=== PATIENT | male | born 1950 | race Caucasian/White ===

== ENCOUNTER 2023-12-03 13:13 | Emergency (ER) | payer OTHER ==
--- OUTSIDE RECORDS SUMMARY | 2023-12-03 13:18 | XMS REPORT | Continuity of Care Document ---
Author Name Unknown Address [address] [facility] [address] [place] [address] [facility] thconnect Address [address] [facility] [address] [place] [address] Care Team Providers Care Bi Application Developer Name Role Phone Artur Marisela Carballo Attending Clinician Unavailable Albert Lazar Attending Clinician Unavailabl George Underwood Attending Clinician Unavailable Doctor Unassigned, Madelia Attending Clinician U Bob Anna Attending Clinician George Connor Admitting Clinician Unavailable Payers Payer Name Policy Type Policy Number Effective Date Expirati on Date Source Problems Condition Name Condition Details Condition Category Status Onset Date Resolution Date Last Treatment Date Treating Clinician Comments Source Dermatitis Dermatitis Problem Active C ommon [facility] Encounter for general adult medical examinatio n with abnormal findings Encounter for general adult medical examinatio n with abnormal findings Problem Active Common [facility] Hyperchole sterolemia Hyperchole sterolemia Problem Active [facility] Other chronic pain Other chronic pain Problem Active [facility] Lumbago with sciatica, right side Lumbago with sciatica, right side Problem Active [facility] Essential hypertensi on Essential hypertensi on Problem Active [facility] Lumbago with sciatica, left side Lumbago with sciatica, left side Problem Active [facility] Allergies, Adverse Reactions, Alerts Allergy Name Allergy Type Status Severity Reaction(s) Onset Date Inactive Date Treating Clinician Comments Source No Known Allergie s DA Active U 03-25 00:00: 00 [facility] No Known Allergie s DA Active U 03-25 00:00: 00 [facility] Social History Social Habit Start Date Stop Date Quantity Comments Source Sex Assigned At [facility] Smoking Status Start Date Stop Date Source Unknown if ever smoked [facility] Medications Ordered Medication Name Filled Medication Name Start Date Stop Date Current Medication? Ordering Clinician Indication Dosage Frequency Signature (SIG) Comments Components Source Triamcinolo ne Acetonide Triamcinolo ne Acetonide 02-25 00:00: 00 Yes Marisela Siddiqui 1 applicatio n to affected area [facility] HydrOXYzine HCl HydrOXYzine HCl 02-25 00:00: 00 Yes Marisela Siddiqui 1 tablet as needed [facility] Amlodipine Besylate Amlodipine Besylate Yes Marisela Siddiqui 1 tablet [facility] Furosemide Furosemide Yes Marisela Siddiqui 1 tablet [facility] Carvedilol Carvedilol Yes Marisela Siddiqui 2 tablet [facility] Meloxicam Meloxicam Yes Marisela Siddiqui 1 tablet [facility] Pravastatin Sodium Pravastatin Sodium Yes Marisela Siddiqui 11/2 tablet [facility] Valsartan Valsartan Yes Marisela Siddiqui 1 tablet [facility] Procedures Procedure Date / Time Performed Performing Clinicia n Source [id number] 2019-04-01 00:00:00 JOSE LUIS [facility] [id number] 2019-04-01 00:00:00 JOSE LUIS [facility] [id number] 2019-04-01 00:00:00 JOSE LUIS [facility] EXTERNAL PROVIDER - ADC REFERRAL 2019-02-28 06:01:00 Doctor Unassigned, Madelia [facility] XR HIPS 2 VW RIGHT 2018-10-28 19:48:57 [facility]W RIGHT 2018-10-28 19:48:57 Bob Taylor [facility] CONSENT/REFUSAL FOR DIAGNOSIS AND TREATMENT 2018-10-28 19:19:33 Doctor Unassigned, Madelia [facility] ASSIGNMENT OF BENEFITS 2018-10-28 19:19:23 Docto r Unassigned, Madelia [facility] Encounters Start Date/Time End Date/Time Encounter Type Admission Type Attending Clinicians Care Facility Care Department Encounter ID Source 2021-03-06 11:01:33 Outpatient Siddiqui Marisela [facility] [id number] [facility] 2019-04-01 15:15:00 Inpatient Albert Lazar [facility] [id number] [facility] 2019-03-26 12:00:00 2019-03-26 12:00:00 Outpatient George Connor [facility]G [id number] [facility] 2019-02-28 00:00:00 2019-02-28 00:00:00 Orders Only Doctor Unassigned, Madelia [facility] 1.2.840.114 350.1.13.10 4.2.7.2.686 [id number] 2019-02-28 00:00:00 2019-02-28 00:00:00 Orders Only Doctor Unassigned, Madelia [facility] 1.2.840.114 350.1.13.10 4.2.7.2.686 [id number] [facility] 2019-02-25 16:20:00 2019-02-25 16:20:00 Outpatient Braznithya [facility] Medicine B[facility]ithyat [facility] Medicine [id number] [facility] 2018-10-28 14:30:00 2018-10-28 23:59:00 Hospital Encounter Bob Taylor [facility] 1.2.840.114 350.1.13.10 4.2.7.2.686 [id number] 2018-10-28 14:30:00 2018-10-28 23:59:00 [facility] 1.2.840.114 350.1.13.10 4.2.7.2.686 [id number] [facility] 2018-10-28 14:15:00 2018-10-28 14:29:00 Hospital Encounter Taylor [facility] 1.2.840.114 350.1.13.10 4.2.7.2.686 [id number] 2018-10-28 14:15:00 2018-10-28 14:29:00 Hospital Encounter [facility] 1.2.840.114 350.1.13.10 4.2.7.2.686 [id number] [facility] 2018-10-28 00:00:00 2018-10-28 00:00:00 Orders Only Doctor Unassigned, Madelia [facility] 1.2.840.114 350.1.13.10 4.2.7.2.686 [id number] 2018-10-28 00:00:00 2018-10-28 00:00:00 Orders Only Doctor Unassigned, Madelia [facility] 1.2.840.114 350.1.13.10 4.2.7.2.686 [id number] [facility] Results Test Description Test Time Test Comments Results Resul t Comments Source - XR CHEST 1V 2019-04-06 07:41:00 Patient Name: LEATHA CORONEL Unit No: [id number] EXAMS: CPT CODE: [id number] XR CHEST 1V [id number] EXAM: - XR CHEST 1V Location code:B2 HISTORY: Postop COMPARISON: 04/05/2019 FINDINGS: Frontal view of the chest is submitted. Previously noted right subclavian CVC is no longer present. Stable enlarged cardiomediastinal silhouette with evidence of median sternotomy wires. Mild diffuse pulmonary congestive changes are noted bilaterally. The lungs are clear of focal consolidation. No effusion or evidence of pneumothorax.. No acute osseous pathology. IMPRESSION Stable cardiomegaly and mild diffuse pulmonary vascular congestive changes. No large effusion or new focal consolidation. at 0741 Reported and signed by: Yesy Lovell MD CC: George Connor MD; Zaid Nazario; Madison Jackson FURNITURE SHAMPOOER Technologist: Viki Crockett RT(R) Transcrpt Date/Tm/Trnsp: 04/06/2019 (07) [email or web address] Orig Print D/T: S: 04/06/2019 (0744) [facility] NAME: LEATHA CORONEL [address] PHYS: MERLINE.[place]aud[place] [address] : 1950 AGE: 68 SEX: M LOC: [id number] A PHONE #: [phone] EXAM DATE: 04/06/2019 STATUS: ADM IN FAX #: [phone] RADIOLOGY NO: PAGE 1 Signed Report BASIC METABOLIC [id number] 06:37:00* Test Item Value Reference Range Interpretation Comme nts SODIUM (test code = NA) 132 MMOL/L 137-145 L POTASSIUM (test code = K) MMOL/L 3.5-5.1 CHLORIDE (test code = CL) 101 MMOL/L 98-107 N CARBON DIOXIDE (test code = CO2) 21 MMOL/L 22-30 L GLUCOSE (test code = GLU) 102 MG/DL 74-106 N BLOOD UREA NITROGEN (test code = BUN) 14 MG/DL 9-20 N GLOMERULAR FILTRATION RATE (test code = GFR) > 60 Reporting units: ml/min/1.73 m2 (Modified MDRD Formula)Reference Range: > or = 60 ml/min/1.73 m2 CREATININE (test code = CREAT) 0.70 MG/DL 0.66-1.25 N CALCIUM (test code = CA) 8.7 MG/DL 8.4-10.2 N BASIC METABOLIC [id number] 06:36:00* Test Item Value Reference Range Interpretation Comme nts SODIUM (test code = NA) 132 MMOL/L 137-145 L POTASSIUM (test code = K) MMOL/L 3.5-5.1 CHLORIDE (test code = CL) 101 MMOL/L 98-107 N CARBON DIOXIDE (test code = CO2) MMOL/L 22-30 GLUCOSE (test code = GLU) MG/DL 74-106 BLOOD UREA NITROGEN (test code = BUN) MG/DL 9-20 GLOMERULAR FILTRATION RATE (test code = GFR) > 60 Reporting units: ml/min/1.73 m2 (Modified MDRD Formula)Reference Range: > or = 60 ml/min/1.73 m2 CREATININE (test code = CREAT) 0.70 MG/DL 0.66-1.25 N CALCIUM (test code = CA) MG/DL 8.7-9.7 BASIC METABOLIC [id number] 06:34:00* Test Item Value Reference Range Interpretation Comme nts SODIUM (test code = NA) 132 MMOL/L 137-145 L POTASSIUM (test code = K) MMOL/L 3.5-5.1 CHLORIDE (test code = CL) 101 MMOL/L 98-107 N CARBON DIOXIDE (test code = CO2) MMOL/L 22-30 GLUCOSE (test code = GLU) MG/DL 74-106 BLOOD UREA NITROGEN (test co de = BUN) MG/DL 9-20 GLOMERULAR FILTRATION RATE ( test code = GFR) CREATININE (test code = CREAT) MG/DL 0.66-1.25 CALCIUM (test code = CA) MG/DL 8.7-9.7 BASIC METABOLIC [id number] 06:33:00* Test Item Value Reference Range Interpretation Comme nts SODIUM (test code = NA) MMOL/L 137-145 POTASSIUM (test code = K) MMOL/L 3.5-5.1 CHLORIDE (test code = CL) 101 MMOL/L 98-107 N CARBON DIOXIDE (test code = CO2) MMOL/L 22-30 GLUCOSE (test code = GLU) MG/DL 74-106 BLOOD UREA NITROGEN (test co de = BUN) MG/DL 9-20 GLOMERULAR FILTRATION RATE ( test code = GFR) CREATININE (test code = CREAT) MG/DL 0.66-1.25 CALCIUM (test code = CA) MG/DL 8.7-9.7 CBC W/AUTO [id number] 06:15:00* Test Item Value Reference Range Interpretation Comme nts WHITE BLOOD CELL (test code = WBC) 6.6 K/MM3 3.8-9.8 N RED BLOOD CELL (test code = RBC) 3.34 M/MM3 3.95-5.67 L HEMOGLOBIN (test code = HGB) 10.5 G/DL 12.4-16.7 L HEMATOCRIT (test code = HCT) 30.5 % 35.9-49.5 L MEAN CELL VOLUME (test code = MCV) 91 fL 81.7-96.1 N MEAN CELL HGB (test code = MCH) 31.4 pg 27.6-33.2 N MEAN CELL HGB CONCETRATION (test code = MCHC) 34.4 % 32.9-35.5 N RED CELL DISTRIBUTION WIDTH (test code = RDW) 13.1 % 12.1-15.2 N PLATELET COUNT (test code = PLT) 200 K/MM3 129-368 N MEAN PLATELET VOLUME (test c ode = MPV) 9.1 fl 7.4-10.4 N NEUTROPHIL % (test code = NT%) 58.6 % 43-75 N IMMATURE GRANULOCYTE % (test code = IG%) 3.3 % 0.0-2.0 H LYMPHOCYTE % (test code = LY%) 16.5 % 14-44 N MONOCYTE % (test code = MO%) 17.6 % 4-13 H EOSINOPHIL % (test code = EO%) 3.2 % 0-6 N BASOPHIL % (test code = BA%) 0.8 % 0-2 N NUCLEATED RBC % (test code = NRBC%) 0.0 % 0-1.0 N NEUTROPHIL # (test code = NT#) 3.87 K/mm3 2.0-7.6 N IMMATURE GRANULOCYTE # (test code = IG#) 0.22 x10 3/uL 0-0.03 H LYMPHOCYTE # (test code = LY#) 1.09 K/mm3 1.0-3.8 N MONOCYTE # (test code = MO#) 1.16 K/mm3 0.1-0.8 H EOSINOPHIL # (test code = EO#) 0.21 K/mm3 0.0-0.2 H BASOPHIL # (test code = BA#) 0.05 K/mm3 0.0-0.2 N NUCLEATED RBC # (test code = NRBC#) 0.00 K/mm3 0.0-0.1 N - XR CHEST [id number] 07:32:00Patient Name: LEATHA CORONEL Unit No: [id number] EXAMS: CPT CODE: [id number] XR CHEST 1V [id number]: - XR CHEST 1V Location code:B2 HISTORY: Status post CABG COMPARISON: 04/04/2019 FINDINGS: Fron pop view of the chest is submitted. Stable right subclavian CVC. Stable cardiomediastinal silhouette with evidence of prior median sternotomy. Only minor residual right basilar opacity, likely atelectasis. No focal consolidation, effusion or evidence of pneumothorax. No acute osseous pathology. IMPRESSION Status post CABG with only minimal residual right basilar atelectasis. No focal consolidation. at 0732 Reported and signed by: Yesy Lovell MD CC: George Connor MD Technologist: Viki Crockett RT(R) Transcrpt Date/Tm/Trnsp: 04/05/2019 (0732) [email or web address] Orig Print D/T: S: 04/05/2019 (0735) [facility] NAME: LEATHA CORONEL [id number] PHYS: [place] [address] : 1950 AGE: 68 SEX: M LOC: Z.358 A PHONE #: [phone] EXAM DATE: 04/05/2019 STATUS: ADM IN FAX #: [phone] RADIOLOGY NO: PAGE 1 Signed ReportBASIC METABOLIC [id number] 05:38:00* Test Item Value Reference Range Interpretation Comme nts SODIUM (test code = NA) 132 MMOL/L 137-145 L POTASSIUM (test code = K) 3.7 MMOL/L 3.5-5.1 N CHLORIDE (test code = CL) 101 MMOL/L 98-107 N CARBON DIOXIDE (test code = CO2) 23 MMOL/L 22-30 N GLUCOSE (test code = GLU) 104 MG/DL 74-106 N BLOOD UREA NITROGEN (test code = BUN) 15 MG/DL 9-20 N GLOMERULAR FILTRATION RATE (test code = GFR) > 60 Reporting units: ml/min/1.73 m2 (Modified MDRD Formula)Reference Range: > or = 60 ml/min/1.73 m2 CREATININE (test code = CREAT) 0.80 MG/DL 0.66-1.25 N CALCIUM (test code = CA) 8.8 MG/DL 8.4-10.2 N [id number] 05:38:00* Test Item Value Reference Range Interpretation Comme nts MAGNESIUM (test code = MAG) 1.9 MG/DL 1.6-2.3 N BASIC METABOLIC [id number] 05:37:00* Test Item Value Reference Range Interpretation Comme nts SODIUM (test code = NA) 132 MMOL/L 137-145 L POTASSIUM (test code = K) 3.7 MMOL/L 3.5-5.1 N CHLORIDE (test code = CL) 101 MMOL/L 98-107 N CARBON DIOXIDE (test code = CO2) 23 MMOL/L 22-30 N GLUCOSE (test code = GLU) MG/DL 74-106 BLOOD UREA NITROGEN (test code = BUN) 15 MG/DL 9-20 N GLOMERULAR FILTRATION RATE (test code = GFR) > 60 Reporting units: ml/min/1.73 m2 (Modified MDRD Formula)Reference Range: > or = 60 ml/min/1.73 m2 CREATININE (test code = CREAT) 0.80 MG/DL 0.66-1.25 N CALCIUM (test code = CA) MG/DL 8.7-9.7 [id number] 05:37:00* Test Item Value Reference Range Interpretation Comme nts MAGNESIUM (test code = MAG) MG/DL 1.6-2.3 BASIC METABOLIC [id number] 05:34:00* Test Item Value Reference Range Interpretation Comme nts SODIUM (test code = NA) 132 MMOL/L 137-145 L POTASSIUM (test code = K) 3.7 MMOL/L 3.5-5.1 N CHLORIDE (test code = CL) 101 MMOL/L 98-107 N CARBON DIOXIDE (test code = CO2) MMOL/L 22-30 GLUCOSE (test code = GLU) MG/DL 74-106 BLOOD UREA NITROGEN (test co de = BUN) MG/DL 9-20 GLOMERULAR FILTRATION RATE ( test code = GFR) CREATININE (test code = CREAT) MG/DL 0.66-1.25 CALCIUM (test code = CA) MG/DL 8.7-9.7 [id number] 05:34:00* Test Item Value Reference Range Interpretation Comme nts MAGNESIUM (test code = MAG) MG/DL 1.6-2.3 CBC W/AUTO [id number] 05:20:00* Test Item Value Reference Range Interpretation Comme nts WHITE BLOOD CELL (test code = WBC) 6.9 K/MM3 3.8-9.8 N RED BLOOD CELL (test code = RBC) 3.29 M/MM3 3.95-5.67 L HEMOGLOBIN (test code = HGB) 10.3 G/DL 12.4-16.7 L HEMATOCRIT (test code = HCT) 30.2 % 35.9-49.5 L MEAN CELL VOLUME (test code = MCV) 92 fL 81.7-96.1 N MEAN CELL HGB (test code = MCH) 31.3 pg 27.6-33.2 N MEAN CELL HGB CONCETRATION (test code = MCHC) 34.1 % 32.9-35.5 N RED CELL DISTRIBUTION WIDTH (test code = RDW) 13.4 % 12.1-15.2 N PLATELET COUNT (test code = PLT) 179 K/MM3 129-368 N MEAN PLATELET VOLUME (test c ode = MPV) 9.0 fl 7.4-10.4 N NEUTROPHIL % (test code = NT%) 60.8 % 43-75 N IMMATURE GRANULOCYTE % (test code = IG%) 0.9 % 0.0-2.0 N LYMPHOCYTE % (test code = LY%) 19.2 % 14-44 N MONOCYTE % (test code = MO%) 15.1 % 4-13 H EOSINOPHIL % (test code = EO%) 3.3 % 0-6 N BASOPHIL % (test code = BA%) 0.7 % 0-2 N NUCLEATED RBC % (test code = NRBC%) 0.0 % 0-1.0 N NEUTROPHIL # (test code = NT#) 4.17 K/mm3 2.0-7.6 N IMMATURE GRANULOCYTE # (test code = IG#) 0.06 x10 3/uL 0-0.03 H LYMPHOCYTE # (test code = LY#) 1.32 K/mm3 1.0-3.8 N MONOCYTE # (test code = MO#) 1.04 K/mm3 0.1-0.8 H EOSINOPHIL # (test code = EO#) 0.23 K/mm3 0.0-0.2 H BASOPHIL # (test code = BA#) 0.05 K/mm3 0.0-0.2 N NUCLEATED RBC # (test code = NRBC#) 0.00 K/mm3 0.0-0.1 N GLUCOSE BEDSIDE [id number] 10:08:00* Test Item Value Reference Range Interpretation Comme nts GLUCOSE BEDSIDE TESTING (melissa t code = GLUBED) 160 MG/DL 60-99 H GLUCOSE BEDSIDE [id number] 10:08:00* Test Item Value Reference Range Interpretation Comme nts GLUCOSE BEDSIDE TESTING (melissa t code = GLUBED) 182 MG/DL 60-99 H - XR CHEST [id number] 08:15:00Patient Name: LEATHA CORONEL Unit No: [id number] EXAMS: CPT CODE: [id number] XR CHEST 1V [id number] EXAM: - XR CHEST 1V Location code:B2 HISTORY: Status post CABG COMPARISON: 04/03/2019 FINDINGS: Front al view of the chest is submitted. Stable right subclavian CVC. Stable enlarged cardiomediastinal silhouette with evidence of prior CABG. There is mild bibasilar airspace opacities, likely atelectasis. No large effusion or appreciable pneumothorax. No acute osseous pathology. Stable Mild degenerative changes of the left lateral humeral joint. IMPRESSION 1. Status post CABG with stable bibasilar airspace disease, likely atelectasis. at 0815 Reported and signed by: Yesy Lovell MD CC: George Connor MD Technologist: Diego Jernigan, RT(R) Transcrpt Date/Tm/Trnsp: 04/04/2019 (814) [email or web address] Orig Prin t D/T: S: 04/04/2019 (0818) [facility] NAME: LETAHA CORONEL [address] PHYS: [place] [address] : 1950 AGE: 68 SEX: M LOC: Z.SI02 A PHONE #: [phone] EXAM DATE: 04/04/2019 STATUS: ADM IN FAX #: [phone] RADIOLOGY NO: PAGE 1 Signed Report BASIC METABOLIC [id number] 04:31:00* Test Item Value Reference Range Interpretation Comme nts SODIUM (test code = NA) 132 MMOL/L 137-145 L POTASSIUM (test code = K) 3.9 MMOL/L 3.5-5.1 N CHLORIDE (test code = CL) 100 MMOL/L 98-107 N CARBON DIOXIDE (test code = CO2) 24 MMOL/L 22-30 N ANION GAP (test code = GAP) 12 MMOL/L 14-24 L GLUCOSE (test code = GLU) 107 MG/DL 74-106 H BLOOD UREA NITROGEN (test code = BUN) 16 MG/DL 9-20 N GLOMERULAR FILTRATION RATE (test code = GFR) > 60 Reporting units: ml/min/1.73 m2 (Modified MDRD Formula)Reference Range: > or = 60 ml/min/1.73 m2 CREATININE (test code = CREAT) 0.70 MG/DL 0.66-1.25 N CALCIUM (test code = CA) 8.8 MG/DL 8.4-10.2 N [id number] 04:31:00* Test Item Value Reference Range Interpretation Comme nts MAGNESIUM (test code = MAG) 1.9 MG/DL 1.6-2.3 N CBC W/AUTO [id number] 03:57:00* Test Item Value Reference Range Interpretation Comme nts WHITE BLOOD CELL (test code = WBC) 8.7 K/MM3 3.8-9.8 N RED BLOOD CELL (test code = RBC) 3.12 M/MM3 3.95-5.67 L HEMOGLOBIN (test code = HGB) 9.9 G/DL 12.4-16.7 L HEMATOCRIT (test code = HCT) 29.7 % 35.9-49.5 L MEAN CELL VOLUME (test code = MCV) 95 fL 81.7-96.1 N MEAN CELL HGB (test code = MCH) 31.7 pg 27.6-33.2 N MEAN CELL HGB CONCETRATION (test code = MCHC) 33.3 % 32.9-35.5 N RED CELL DISTRIBUTION WIDTH (test code = RDW) 13.5 % 12.1-15.2 N PLATELET COUNT (test code = PLT) 163 K/MM3 129-368 N MEAN PLATELET VOLUME (test c ode = MPV) 9.0 fl 7.4-10.4 N NEUTROPHIL % (test code = NT%) 66.1 % 43-75 N IMMATURE GRANULOCYTE % (test code = IG%) 0.3 % 0.0-2.0 N LYMPHOCYTE % (test code = LY%) 16.6 % 14-44 N MONOCYTE % (test code = MO%) 14.2 % 4-13 H EOSINOPHIL % (test code = EO%) 2.3 % 0-6 N BASOPHIL % (test code = BA%) 0.5 % 0-2 N NUCLEATED RBC % (test code = NRBC%) 0.0 % 0-1.0 N NEUTROPHIL # (test code = NT#) 5.75 K/mm3 2.0-7.6 N IMMATURE GRANULOCYTE # (test code = IG#) 0.03 x10 3/uL 0-0.03 N LYMPHOCYTE # (test code = LY#) 1.45 K/mm3 1.0-3.8 N MONOCYTE # (test code = MO#) 1.24 K/mm3 0.1-0.8 H EOSINOPHIL # (test code = EO#) 0.20 K/mm3 0.0-0.2 N BASOPHIL # (test code = BA#) 0.04 K/mm3 0.0-0.2 N NUCLEATED RBC # (test code = NRBC#) 0.00 K/mm3 0.0-0.1 N - XR CHEST [id number] 08:20:00Patient Name: LEATHA CORONEL Unit No: [id number] EXAMS: CPT CODE: [id number] XR CHEST 1V [id number]: C3 EXAM: XR CHEST 1 VIEW DATE: 04/03/2019 5:00 AM INDICATION: Status post CABG COMPARISON: Chest radiograph dated 04/02/2019 TECHNIQUE: AP chest FINDINGS: Lines, tubes and hardware: Interval removal of a Teton-Lana catheter. There is a right-sided central venous catheter with tip overlying the expected location of the superior vena cava. There is a mediastinal drain and a left chest drain in place. Median sternotomy wires are noted. Lungs and pleura: There is mild blunting the left costophrenic sulcus. There are minimal linear opacities within the lower lobes bilaterally. The pulmonary vasculature is within normal limits. No pneumothorax. Heart and mediastinum: The cardiomediastinalsilhouette is stable. Bones: No acute bony abnormality is identified. IMPRESSION: Interval removal of a Teton- Lana catheter. Otherwise stable exam, with a similar appearance of blunting of the left costophrenic sulcus and mild bibasilar linear opacities, which may represent atelectatic change. at 0820 Reported and signed by: Lucas Madrid MD CC: George Connor MD Technologist: Diego Jernigan, RT(R) Transcrpt Date/T m/Trnsp: 04/03/2019 (819) [email or web address] Orig Print D/T: S: 04/03/2019 (822) [facility] NAME: BERNALEATHAMINDY TAMAYO [address] PHYS: [place] [address] : 1950 AGE: 68 SEX: M LOC: Z.SI02 A PHONE #: [phone] EXAM DATE: 04/03/2019 STATUS: ADM IN FAX #: [phone] RADIOLOGY NO: PAGE 1 Signed ReportBASIC METABOLIC [id number] 05:07:00* Test Item Value Reference Range Interpretation Comme nts SODIUM (test code = NA) 133 MMOL/L 137-145 L POTASSIUM (test code = K) 4.1 MMOL/L 3.5-5.1 N CHLORIDE (test code = CL) 100 MMOL/L 98-107 N CARBON DIOXIDE (test code = CO2) 27 MMOL/L 22-30 N GLUCOSE (test code = GLU) 119 MG/DL 74-106 H BLOOD UREA NITROGEN (test code = BUN) 14 MG/DL 9-20 N GLOMERULAR FILTRATION RATE (test code = GFR) > 60 Reporting units: ml/min/1.73 m2 (Modified MDRD Formula)Reference Range: > or = 60 ml/min/1.73 m2 CREATININE (test code = CREAT) 0.70 MG/DL 0.66-1.25 N CALCIUM (test code = CA) 8.8 MG/DL 8.4-10.2 N [id number] 05:07:00* Test Item Value Reference Range Interpretation Comme nts MAGNESIUM (test code = MAG) 2.0 MG/DL 1.6-2.3 N BASIC METABOLIC [id number] 05:06:00* Test Item Value Reference Range Interpretation Comme nts SODIUM (test code = NA) 133 MMOL/L 137-145 L POTASSIUM (test code = K) 4.1 MMOL/L 3.5-5.1 N CHLORIDE (test code = CL) 100 MMOL/L 98-107 N CARBON DIOXIDE (test code = CO2) 27 MMOL/L 22-30 N GLUCOSE (test code = GLU) MG/DL 74-106 BLOOD UREA NITROGEN (test code = BUN) MG/DL 9-20 GLOMERULAR FILTRATION RATE (test code = GFR) > 60 Reporting units: ml/min/1.73 m2 (Modified MDRD Formula)Reference Range: > or = 60 ml/min/1.73 m2 CREATININE (test code = CREAT) 0.70 MG/DL 0.66-1.25 N CALCIUM (test code = CA) MG/DL 8.7-9.7 [id number] 05:06:00* Test Item Value Reference Range Interpretation Comme nts MAGNESIUM (test code = MAG) MG/DL 1.6-2.3 BASIC METABOLIC [id number] 05:04:00* Test Item Value Reference Range Interpretation Comme nts SODIUM (test code = NA) 133 MMOL/L 137-145 L POTASSIUM (test code = K) 4.1 MMOL/L 3.5-5.1 N CHLORIDE (test code = CL) 100 MMOL/L 98-107 N CARBON DIOXIDE (test code = CO2) MMOL/L 22-30 GLUCOSE (test code = GLU) MG/DL 74-106 BLOOD UREA NITROGEN (test co de = BUN) MG/DL 9-20 GLOMERULAR FILTRATION RATE ( test code = GFR) CREATININE (test code = CREAT) MG/DL 0.66-1.25 CALCIUM (test code = CA) MG/DL 8.7-9.7 [id number] 05:04:00* Test Item Value Reference Range Interpretation Comme nts MAGNESIUM (test code = MAG) MG/DL 1.6-2.3 BASIC METABOLIC [id number] 05:03:00* Test Item Value Reference Range Interpretation Comme nts SODIUM (test code = NA) 133 MMOL/L 137-145 L POTASSIUM (test code = K) MMOL/L 3.5-5.1 CHLORIDE (test code = CL) 100 MMOL/L 98-107 N CARBON DIOXIDE (test code = CO2) MMOL/L 22-30 GLUCOSE (test code = GLU) MG/DL 74-106 BLOOD UREA NITROGEN (test co de = BUN) MG/DL 9-20 GLOMERULAR FILTRATION RATE ( test code = GFR) CREATININE (test code = CREAT) MG/DL 0.66-1.25 CALCIUM (test code = CA) MG/DL 8.7-9.7 [id number] 05:03:00* Test Item Value Reference Range Interpretation Comme nts MAGNESIUM (test code = MAG) MG/DL 1.6-2.3 CBC W/AUTO [id number] 04:52:00* Test Item Value Reference Range Interpretation Comme nts WHITE BLOOD CELL (test code = WBC) 12.9 K/MM3 3.8-9.8 H RED BLOOD CELL (test code = RBC) 3.28 M/MM3 3.95-5.67 L HEMOGLOBIN (test code = HGB) 10.4 G/DL 12.4-16.7 L HEMATOCRIT (test code = HCT) 30.5 % 35.9-49.5 L MEAN CELL VOLUME (test code = MCV) 93 fL 81.7-96.1 N MEAN CELL HGB (test code = MCH) 31.7 pg 27.6-33.2 N MEAN CELL HGB CONCETRATION (test code = MCHC) 34.1 % 32.9-35.5 N RED CELL DISTRIBUTION WIDTH (test code = RDW) 13.6 % 12.1-15.2 N PLATELET COUNT (test code = PLT) 178 K/MM3 129-368 N MEAN PLATELET VOLUME (test c ode = MPV) 8.9 fl 7.4-10.4 N NEUTROPHIL % (test code = NT%) 74.1 % 43-75 N IMMATURE GRANULOCYTE % (test code = IG%) 0.8 % 0.0-2.0 N LYMPHOCYTE % (test code = LY%) 11.4 % 14-44 L MONOCYTE % (test code = MO%) 12.9 % 4-13 N EOSINOPHIL % (test code = EO%) 0.5 % 0-6 N BASOPHIL % (test code = BA%) 0.3 % 0-2 N NUCLEATED RBC % (test code = NRBC%) 0.0 % 0-1.0 N NEUTROPHIL # (test code = NT#) 9.55 K/mm3 2.0-7.6 H IMMATURE GRANULOCYTE # (test code = IG#) 0.10 x10 3/uL 0-0.03 H LYMPHOCYTE # (test code = LY#) 1.47 K/mm3 1.0-3.8 N MONOCYTE # (test code = MO#) 1.67 K/mm3 0.1-0.8 H EOSINOPHIL # (test code = EO#) 0.07 K/mm3 0.0-0.2 N BASOPHIL # (test code = BA#) 0.04 K/mm3 0.0-0.2 N NUCLEATED RBC # (test code = NRBC#) 0.00 K/mm3 0.0-0.1 N [id number] 21:48:00* Test Item Value Reference Range Interpretation Comme nts POTASSIUM (test code = K) 4.0 MMOL/L 3.5-5.1 N GLUCOSE BEDSIDE [id number] 19:20:00* Test Item Value Reference Range Interpretation Comme nts GLUCOSE BEDSIDE TESTING (melissa t code = GLUBED) 125 MG/DL 60-99 H GLUCOSE BEDSIDE [id number] 19:20:00* Test Item Value Reference Range Interpretation Comme nts GLUCOSE BEDSIDE TESTING (melissa t code = GLUBED) 149 MG/DL 60-99 H GLUCOSE BEDSIDE [id number] 19:20:00* Test Item Value Reference Range Interpretation Comme nts GLUCOSE BEDSIDE TESTING (melissa t code = GLUBED) 161 MG/DL 60-99 H GLUCOSE BEDSIDE [id number] 11:58:00* Test Item Value Reference Range Interpretation Comme nts GLUCOSE BEDSIDE TESTING (melissa t code = GLUBED) 228 MG/DL 60-99 H GLUCOSE BEDSIDE [id number] 11:58:00* Test Item Value Reference Range Interpretation Comme nts GLUCOSE BEDSIDE TESTING (melissa t code = GLUBED) 144 MG/DL 60-99 H - XR CHEST [id number] 08:16:00Patient Name: LEATHA CORONEL Unit No: [id number] EXAMS: CPT CODE: [id number] XR CHEST 1V [id number] View Chest. Location: Clinical Indication: 68-year-old with CABG Comparison: Prior day Findings: An AP view of the chest was obtained. Patient has been extubated and the NG tube removed. Right neck Teton-Lana catheter and a right subclavian central line are again noted. Mediastinal and left chest drains remain. Streaky bibasilar airspace opacification is slightly improved. No pneumothorax. No acute osseous abnormality. Impression: 1. Interval extubation. 2. Improving aeration of the lung bases. at 0816 Reported and signed by: Albert Naylor M.D. CC: George Connor MD Technologist: Diego Jernigan, RT(R) Transcrpt Date/Tm/Trnsp: 04/02/2019 (0816) [id number] Orig Print D/T: S: 04/02/2019 (0819) [facility] NAME: LEATHA CORONEL [id number] [address] PHYS: [place] [address] : 1950 AGE: 68 SEX: M LOC: Z.SI02 A PHONE #: [phone] EXAM DATE: 04/02/2019 STATUS: ADM IN FAX #: [phone] RADIOLOGY NO: PAGE 1 Signed ReportGLUCOSE BEDSIDE [id number] 06:59:00* Test Item Value Reference Range Interpretation Comme nts GLUCOSE BEDSIDE TESTING (melissa t code = GLUBED) 134 MG/DL 60-99 H GLUCOSE BEDSIDE [id number] 06:16:00* Test Item Value Reference Range Interpretation Comme nts GLUCOSE BEDSIDE TESTING (melissa t code = GLUBED) 161 MG/DL 60-99 H GLUCOSE BEDSIDE [id number] 06:16:00* Test Item Value Reference Range Interpretation Comme nts GLUCOSE BEDSIDE TESTING (melissa t code = GLUBED) 157 MG/DL 60-99 H GLUCOSE BEDSIDE [id number] 06:16:00* Test Item Value Reference Range Interpretation Comme nts GLUCOSE BEDSIDE TESTING (melissa t code = GLUBED) 157 MG/DL 60-99 H GLUCOSE BEDSIDE [id number] 06:16:00* Test Item Value Reference Range Interpretation Comme nts GLUCOSE BEDSIDE TESTING (melissa t code = GLUBED) 157 MG/DL 60-99 H PROTHROMBIN [id number] 04:43:00* Test Item Value Reference Range Interpretation Comme [facility] PROTHROMBIN TIME PATIENT (test code = PTP) 13.2 SECONDS 9.4-12.5 H INTERNATIONAL NORMAL RATIO (test code = INR) 1.2 The INR is to be used only for monitoring oral anticoagulanttherap y. INDICATION INR VALUE -------1. Prophylaxis, deep venous thrombosis, including high risk surgery. 2.0 - 3.0 2. Prophylaxis, deep venous thrombosis, hip surgery, treatment for deep venous thrombosis or pulmonary prevention of systemic embolism in patients with valvular heart disease, atrial fibrillation, tissue heart valve, or acute myocardial infarction. 2.0 - 3.0 3. Mechanical prosthesis heart valves, recurrent systemic embolism. 3.0 - 4.5 PTT [id number] 04:43:00* Test Item Value Reference Range Interpretation Comme [facility] PTT ACTIVATED (test code = APTT) 48.5 SECONDS 25.1-36.5 H BASIC METABOLIC [id number] 04:23:00* Test Item Value Reference Range Interpretation Comme nts SODIUM (test code = NA) 139 MMOL/L 137-145 N POTASSIUM (test code = K) 4.1 MMOL/L 3.5-5.1 N CHLORIDE (test code = CL) 105 MMOL/L 98-107 N CARBON DIOXIDE (test code = CO2) 26 MMOL/L 22-30 N GLUCOSE (test code = GLU) 159 MG/DL 74-106 H BLOOD UREA NITROGEN (test code = BUN) 15 MG/DL 9-20 N GLOMERULAR FILTRATION RATE (test code = GFR) > 60 Reporting units: ml/min/1.73 m2 (Modified MDRD Formula)Reference Range: > or = 60 ml/min/1.73 m2 CREATININE (test code = CREAT) 0.90 MG/DL 0.66-1.25 N CALCIUM (test code = CA) 9.2 MG/DL 8.4-10.2 N [id number] 04:23:00* Test Item Value Reference Range Interpretation Comme nts MAGNESIUM (test code = MAG) 2.6 MG/DL 1.6-2.3 H BASIC METABOLIC [id number] 04:21:00* Test Item Value Reference Range Interpretation Comme nts SODIUM (test code = NA) 139 MMOL/L 137-145 N POTASSIUM (test code = K) 4.1 MMOL/L 3.5-5.1 N CHLORIDE (test code = CL) 105 MMOL/L 98-107 N CARBON DIOXIDE (test code = CO2) 26 MMOL/L 22-30 N GLUCOSE (test code = GLU) MG/DL 74-106 BLOOD UREA NITROGEN (test code = BUN) MG/DL 9-20 GLOMERULAR FILTRATION RATE (test code = GFR) > 60 Reporting units: ml/min/1.73 m2 (Modified MDRD Formula)Reference Range: > or = 60 ml/min/1.73 m2 CREATININE (test code = CREAT) 0.90 MG/DL 0.66-1.25 N CALCIUM (test code = CA) MG/DL 8.7-9.7 [id number] 04:21:00* Test Item Value Reference Range Interpretation Comme nts MAGNESIUM (test code = MAG) MG/DL 1.6-2.3 BASIC METABOLIC [id number] 04:18:00* Test Item Value Reference Range Interpretation Comme nts SODIUM (test code = NA) 139 MMOL/L 137-145 N POTASSIUM (test code = K) 4.1 MMOL/L 3.5-5.1 N CHLORIDE (test code = CL) 105 MMOL/L 98-107 N CARBON DIOXIDE (test code = CO2) MMOL/L 22-30 GLUCOSE (test code = GLU) MG/DL 74-106 BLOOD UREA NITROGEN (test co de = BUN) MG/DL 9-20 GLOMERULAR FILTRATION RATE ( test code = GFR) CREATININE (test code = CREAT) MG/DL 0.66-1.25 CALCIUM (test code = CA) MG/DL 8.7-9.7 [id number] 04:18:00* Test Item Value Reference Range Interpretation Comme nts MAGNESIUM (test code = MAG) MG/DL 1.6-2.3 CBC W/AUTO [id number] 04:17:00* Test Item Value Reference Range Interpretation Comme nts WHITE BLOOD CELL (test code = WBC) 12.4 K/MM3 3.8-9.8 H RED BLOOD CELL (test code = RBC) 3.64 M/MM3 3.95-5.67 L HEMOGLOBIN (test code = HGB) 11.6 G/DL 12.4-16.7 L HEMATOCRIT (test code = HCT) 33.9 % 35.9-49.5 L MEAN CELL VOLUME (test code = MCV) 93 fL 81.7-96.1 N MEAN CELL HGB (test code = MCH) 31.9 pg 27.6-33.2 N MEAN CELL HGB CONCETRATION (test code = MCHC) 34.2 % 32.9-35.5 N RED CELL DISTRIBUTION WIDTH (test code = RDW) 13.2 % 12.1-15.2 N PLATELET COUNT (test code = PLT) 192 K/MM3 129-368 N MEAN PLATELET VOLUME (test c ode = MPV) 9.0 fl 7.4-10.4 N NEUTROPHIL % (test code = NT%) 85.1 % 43-75 H IMMATURE GRANULOCYTE % (test code = IG%) 0.4 % 0.0-2.0 N LYMPHOCYTE % (test code = LY%) 4.8 % 14-44 L MONOCYTE % (test code = MO%) 9.6 % 4-13 N EOSINOPHIL % (test code = EO%) 0.0 % 0-6 N BASOPHIL % (test code = BA%) 0.1 % 0-2 N NUCLEATED RBC % (test code = NRBC%) 0.0 % 0-1.0 N NEUTROPHIL # (test code = NT#) 10.52 K/mm3 2.0-7.6 H IMMATURE GRANULOCYTE # (test code = IG#) 0.05 x10 3/uL 0-0.03 H LYMPHOCYTE # (test code = LY#) 0.59 K/mm3 1.0-3.8 L MONOCYTE # (test code = MO#) 1.19 K/mm3 0.1-0.8 H EOSINOPHIL # (test code = EO#) 0.00 K/mm3 0.0-0.2 N BASOPHIL # (test code = BA#) 0.01 K/mm3 0.0-0.2 N NUCLEATED RBC # (test code = NRBC#) 0.00 K/mm3 0.0-0.1 N GLUCOSE BEDSIDE [id number] 00:23:00* Test Item Value Reference Range Interpretation Comme nts GLUCOSE BEDSIDE TESTING (melissa t code = GLUBED) 160 MG/DL 60-99 H GLUCOSE BEDSIDE [id number] 00:23:00* Test Item Value Reference Range Interpretation Comme nts GLUCOSE BEDSIDE TESTING (melissa t code = GLUBED) 158 MG/DL 60-99 H GLUCOSE BEDSIDE [id number] 00:23:00* Test Item Value Reference Range Interpretation Comme nts GLUCOSE BEDSIDE TESTING (melissa t code = GLUBED) 177 MG/DL 60-99 H GLUCOSE BEDSIDE [id number] 00:23:00* Test Item Value Reference Range Interpretation Comme nts GLUCOSE BEDSIDE TESTING (melissa t code = GLUBED) 186 MG/DL 60-99 H GLUCOSE BEDSIDE [id number] 00:23:00* Test Item Value Reference Range Interpretation Comme nts GLUCOSE BEDSIDE TESTING (melissa t code = GLUBED) 183 MG/DL 60-99 H GLUCOSE BEDSIDE [id number] 18:23:00* Test Item Value Reference Range Interpretation Comme nts GLUCOSE BEDSIDE TESTING (melissa t code = GLUBED) 101 MG/DL 60-99 H GLUCOSE BEDSIDE [id number] 17:25:00* Test Item Value Reference Range Interpretation Comme nts GLUCOSE BEDSIDE TESTING (melissa t code = GLUBED) 111 MG/DL 60-99 H GLUCOSE BEDSIDE [id number] 17:25:00* Test Item Value Reference Range Interpretation Comme nts GLUCOSE BEDSIDE TESTING (melissa t code = GLUBED) 142 MG/DL 60-99 H GLUCOSE BEDSIDE [id number] 16:26:00* Test Item Value Reference Range Interpretation Comme nts GLUCOSE BEDSIDE TESTING (melissa t code = GLUBED) 124 MG/DL 60-99 H - XR CHEST [id number] 15:58:00Patient Name: LEATHA CORONEL Unit No: [id number] EXAMS: CPT CODE: [id number] XR CHEST 1V [id number]: - XR CHEST 1V Location code:C3 HISTORY: Respiratory failure COMPARISON: Prior radiographs same day at 1450 7:00 PM. FINDINGS: Frontal view of the chest is submitted. Stable positioning of ETT,right IJ approach Teton-Lana catheter with tip overlying the pulmonary trunk. Enteric tube coursing into the stomach and right-sided subclavian CVC, with tip overlying the atrial caval junction. Mild congestive changes noted bilaterally with suspected trace effusions and minor bibasilar airspace disease, likely atelectasis. No appreciable pneumothorax.Stable cardiomediastinal silhouette with aligned and intact median sternotomy wires. No acute osseous pathology. IMPRESSION 1. Mild diffuse congestive changes. Suspected trace bilateral effusions with associated bibasilar airspace disease, likelyatelectasis. 2. Stable postsurgical changes. 3. Lines and tubes as above at 1558 Reported and signed by: Yesy Lovell MD CC: George Connor MD Technologist: Christian Linares, (RT) (R) Transcrpt Date/Tm/Trnsp: 04/01/2019 (1558) [id number] Orig Print D/T: S: 04/01/2019 (9027) [facility] NAME: LEATHA CORONEL [id number] [address] PHYS: [place] [address] : 1950 AGE: 68 SEX: M LOC: Z.SI02 A PHONE #: [phone] EXAM DATE: 04/01/2019 STATUS: ADM IN FAX #: [phone] RADIOLOGY NO: PAGE 1 Signed ReportBASIC METABOLIC [id number] 15:38:00* Test Item Value Reference Range Interpretation Comme [facility] SODIUM (test code = NA) 139 MMOL/L 137-145 N POTASSIUM (test code = K) 4.4 MMOL/L 3.5-5.1 N CHLORIDE (test code = CL) 107 MMOL/L 98-107 N CARBON DIOXIDE (test code = CO2) 26 MMOL/L 22-30 N GLUCOSE (test code = GLU) 120 MG/DL 74-106 H BLOOD UREA NITROGEN (test code = BUN) 13 MG/DL 9-20 N GLOMERULAR FILTRATION RATE (test code = GFR) > 60 Reporting units: ml/min/1.73 m2 (Modified MDRD Formula)Reference Range: > or = 60 ml/min/1.73 m2 CREATININE (test code = CREAT) 0.90 MG/DL 0.66-1.25 N CALCIUM (test code = CA) 9.7 MG/DL 8.4-10.2 N [id number] 15:38:00* Test Item Value Reference Range [facility]ation [facility] (test code = MAG) 4.8 MG/DL 1.6-2.3 H PROTHROMBIN [id number] 15:38:00* Test Item Value Reference Range Interpretation [facility] PROTHROMBIN TIME PATIENT (test code = PTP) 14.2 SECONDS 9.4-12.5 H INTERNATIONAL NORMAL RATIO (test code = INR) 1.3 The INR is to be used only for monitoring oral anticoagulanttherap y. INDICATION INR VALUE -------1. Prophylaxis, deep venous thrombosis, including high risk surgery. 2.0 - 3.0 2. Prophylaxis, deep venous thrombosis, hip surgery, treatment for deep venous thrombosis or pulmonary prevention of systemic embolism in patients with valvular heart disease, atrial fibrillation, tissue heart valve, or acute myocardial infarction. 2.0 - 3.0 3. Mechanical prosthesis heart valves, recurrent systemic embolism. 3.0 - 4.5 PTT [id number] 15:38:00* Test Item Value Reference Range Interpretation [facility] PTT ACTIVATED (test code = APTT) 34.7 SECONDS 25.1-36.5 N BASIC METABOLIC [id number] 15:37:00* Test Item Value Reference Range Interpretation Comme nts SODIUM (test code = NA) 139 MMOL/L 137-145 N POTASSIUM (test code = K) 4.4 MMOL/L 3.5-5.1 N CHLORIDE (test code = CL) 107 MMOL/L 98-107 N CARBON DIOXIDE (test code = CO2) 26 MMOL/L 22-30 N GLUCOSE (test code = GLU) 120 MG/DL 74-106 H BLOOD UREA NITROGEN (test code = BUN) 13 MG/DL 9-20 N GLOMERULAR FILTRATION RATE (test code = GFR) > 60 Reporting units: ml/min/1.73 m2 (Modified MDRD Formula)Reference Range: > or = 60 ml/min/1.73 m2 CREATININE (test code = CREAT) 0.90 MG/DL 0.66-1.25 N CALCIUM (test code = CA) 9.7 MG/DL 8.4-10.2 N [id number] 15:37:00* Test Item Value Reference Range Interpretation Comme nts MAGNESIUM (test code = MAG) MG/DL 1.6-2.3 BASIC METABOLIC [id number] 15:36:00* Test Item Value Reference Range Interpretation Comme nts SODIUM (test code = NA) 139 MMOL/L 137-145 N POTASSIUM (test code = K) 4.4 MMOL/L 3.5-5.1 N CHLORIDE (test code = CL) 107 MMOL/L 98-107 N CARBON DIOXIDE (test code = CO2) MMOL/L 22-30 GLUCOSE (test code = GLU) MG/DL 74-106 BLOOD UREA NITROGEN (test code = BUN) MG/DL 9-20 GLOMERULAR FILTRATION RATE (test code = GFR) > 60 Reporting units: ml/min/1.73 m2 (Modified MDRD Formula)Reference Range: > or = 60 ml/min/1.73 m2 CREATININE (test code = CREAT) 0.90 MG/DL 0.66-1.25 N CALCIUM (test code = CA) MG/DL 8.7-9.7 [id number] 15:36:00* Test Item Value Reference Range Interpretation Comme nts MAGNESIUM (test code = MAG) MG/DL 1.6-2.3 BASIC METABOLIC [id number] 15:34:00* Test Item Value Reference Range Interpretation Comme nts SODIUM (test code = NA) 139 MMOL/L 137-145 N POTASSIUM (test code = K) 4.4 MMOL/L 3.5-5.1 N CHLORIDE (test code = CL) 107 MMOL/L 98-107 N CARBON DIOXIDE (test code = CO2) MMOL/L 22-30 GLUCOSE (test code = GLU) MG/DL 74-106 BLOOD UREA NITROGEN (test co de = BUN) MG/DL 9-20 GLOMERULAR FILTRATION RATE ( test code = GFR) CREATININE (test code = CREAT) MG/DL 0.66-1.25 CALCIUM (test code = CA) MG/DL 8.7-9.7 [id number] 15:34:00* Test Item Value Reference Range Interpretation Comme nts MAGNESIUM (test code = MAG) MG/DL 1.6-2.3 BASIC METABOLIC [id number] 15:33:00* Test Item Value Reference Range Interpretation Comme nts SODIUM (test code = NA) 139 MMOL/L 137-145 N POTASSIUM (test code = K) MMOL/L 3.5-5.1 CHLORIDE (test code = CL) 107 MMOL/L 98-107 N CARBON DIOXIDE (test code = CO2) MMOL/L 22-30 GLUCOSE (test code = GLU) MG/DL 74-106 BLOOD UREA NITROGEN (test co de = BUN) MG/DL 9-20 GLOMERULAR FILTRATION RATE ( test code = GFR) CREATININE (test code = CREAT) MG/DL 0.66-1.25 CALCIUM (test code = CA) MG/DL 8.7-9.7 [id number] 15:33:00* Test Item Value Reference Range Interpretation Comme nts MAGNESIUM (test code = MAG) MG/DL 1.6-2.3 - XR CHEST [id number] 15:32:00Patient Name: LEATHA CORONEL Unit No: [id number] EXAMS: CPT CODE: [id number] XR CHEST 1V [id number] EXAM: XR Chest 1 View INDICATION: S/P CABG LOCATION CODE: B2 COMPARISON: Chest radiograph dated 2019 TECHNIQUE: Frontal view of the chest was obtained. FINDINGS: Endotracheal tube has its tip 4.8cm from the jasmine. Right subclavian central venous catheter has its tip at the atrial caval junction. Right internal jugular Teton-Lana catheter has its tip overlying the main pulmonary artery. Esophagogastric tube has its tip and side-port in the stomach. Pulmonary vascular prominence is unchangedfrom prior. No focal consolidation is seen. There is no pleural effusion or pneumothorax. Cardia mediastinal silhouette appears more prominent, likely reflecting postsurgical changes. Median sternotomy wires have been placed. IMPRESSION: Post surgical changes of the mediastinum with placement of multiple lines and tubes as above.. at 1532 Reported and signed by: Fang Coyne MD CC: George Connor MD Technologist: [facility] STUDENT ; Nicolas Leon, RT(R) Transcrpt Date/Tm/Trnsp: 04/01/2019 (1532) [id number] Orig Print D/T: S: 04/01/2019 (153) [facility] NAME: LEATHA CORONEL [address] [address] PHYS: [place] [address] : 1950 AGE: 68 SEX: M LOC: Z.SI02 APHONE #: [phone] EXAM DATE: 04/01/2019 STATUS: ADM IN FAX #: [phone] RADIOLOGY NO: PAGE 1 Signed Report ARTERIAL BLOOD [id number] 15:30:00* Test Item Value Reference Range Interpretation Comme nts ARTERIAL BLOOD GAS PH (test code = PHA) 7.39 mmHg 7.35-7.45 N ARTERIAL BLOOD GAS PCO2 (melissa t code = PCO2A) 37.5 mmHg 35.0-45.0 N ARTERIAL BLOOD GAS PO2 (test code = PO2A) 169.0 mmol/L 80.0-100.0 H BICARBONATE TOTAL HCO3 (test code = HCO3) 22.2 mmol/L 20.0-26.0 N BASE EXCESS (test code = ОЛЬГА) -2.2 mmol/L -3.0-3.0 N ABG O2 SATURATION (test code = SATA) 99.1 % 95.0-100.0 N ABG DELIVERY (test code = ALEXANDRO) VENT ABG VENT MODE (test code = MODEA) A/C ABG VENT RESP RATE (test cod e = RRA) 12.0 /MIN ABG TIDAL VOLUME (test code = TVA) 500 ml ABG PEEP (test code = PEEPA) 5.0 cmH2O ABG TEMPERATURE (test code = TEMPA) 37.0 C >37 ABG SITE (test code = SITEA) AL ALLENS TEST (test code = ALLENS) NA CHECK FIO2 (test code = COHBGFFIO2) 100 % CBC W/AUTO [id number] 15:25:00* Test Item Value Reference Range Interpretation Comme nts WHITE BLOOD CELL (test code = WBC) 11.2 K/MM3 3.8-9.8 H RED BLOOD CELL (test code = RBC) 3.39 M/MM3 3.95-5.67 L HEMOGLOBIN (test code = HGB) 10.9 G/DL 12.4-16.7 L HEMATOCRIT (test code = HCT) 31.5 % 35.9-49.5 L MEAN CELL VOLUME (test code = MCV) 93 fL 81.7-96.1 N MEAN CELL HGB (test code = MCH) 32.2 pg 27.6-33.2 N MEAN CELL HGB CONCETRATION (test code = MCHC) 34.6 % 32.9-35.5 N RED CELL DISTRIBUTION WIDTH (test code = RDW) 12.9 % 12.1-15.2 N PLATELET COUNT (test code = PLT) 184 K/MM3 129-368 N MEAN PLATELET VOLUME (test c ode = MPV) 8.9 fl 7.4-10.4 N NEUTROPHIL % (test code = NT%) 77.5 % 43-75 H IMMATURE GRANULOCYTE % (test code = IG%) 0.7 % 0.0-2.0 N LYMPHOCYTE % (test code = LY%) 9.7 % 14-44 L MONOCYTE % (test code = MO%) 10.9 % 4-13 N EOSINOPHIL % (test code = EO%) 0.8 % 0-6 N BASOPHIL % (test code = BA%) 0.4 % 0-2 N NUCLEATED RBC % (test code = NRBC%) 0.0 % 0-1.0 N NEUTROPHIL # (test code = NT#) 8.68 K/mm3 2.0-7.6 H IMMATURE GRANULOCYTE # (test code = IG#) 0.08 x10 3/uL 0-0.03 H LYMPHOCYTE # (test code = LY#) 1.09 K/mm3 1.0-3.8 N MONOCYTE # (test code = MO#) 1.22 K/mm3 0.1-0.8 H EOSINOPHIL # (test code = EO#) 0.09 K/mm3 0.0-0.2 N BASOPHIL # (test code = BA#) 0.04 K/mm3 0.0-0.2 N NUCLEATED RBC # (test code = NRBC#) 0.00 K/mm3 0.0-0.1 N PROTHROMBIN [id number] 14:44:00* Test Item Value Reference Range Interpretation Comme nts PROTHROMBIN TIME PATIENT (test code = PTP) 15.1 SECONDS 9.4-12.5 H INTERNATIONAL NORMAL RATIO (test code = INR) 1.4 The INR is to be used only for monitoring oral anticoagulanttherap y. INDICATION INR VALUE -------1. Prophylaxis, deep venous thrombosis, including high risk surgery. 2.0 - 3.0 2. Prophylaxis, deep venous thrombosis, hip surgery, treatment for deep venous thrombosis or pulmonary prevention of systemic embolism in patients with valvular heart disease, atrial fibrillation, tissue heart valve, or acute myocardial infarction. 2.0 - 3.0 3. Mechanical prosthesis heart valves, recurrent systemic embolism. 3.0 - 4.5 CALL *[id number] 14:44:00* Test Item Value Reference Range Interpretation Comme nts PTT ACTIVATED (test code = APTT) 33.0 SECONDS 25.1-36.5 N CALL *[id number] METABOLIC [id number] 14:43:00* Test Item Value Reference Range Interpretation Comme nts SODIUM (test code = NA) 139 MMOL/L 137-145 N POTASSIUM (test code = K) 4.4 MMOL/L 3.5-5.1 N CHLORIDE (test code = CL) 108 MMOL/L 98-107 H CARBON DIOXIDE (test code = CO2) 27 MMOL/L 22-30 N GLUCOSE (test code = GLU) 125 MG/DL 74-106 H BLOOD UREA NITROGEN (test code = BUN) 13 MG/DL 9-20 N GLOMERULAR FILTRATION RATE (test code = GFR) > 60 Reporting units: ml/min/1.73 m2 (Modified MDRD Formula)Reference Range: > or = 60 ml/min/1.73 m2 CREATININE (test code = CREAT) 0.90 MG/DL 0.66-1.25 N CALCIUM (test code = CA) 10.0 MG/DL 8.4-10.2 N CALL *[id number] METABOLIC [id number] 14:42:00* Test Item Value Reference Range Interpretation Comme nts SODIUM (test code = NA) 139 MMOL/L 137-145 N POTASSIUM (test code = K) 4.4 MMOL/L 3.5-5.1 N CHLORIDE (test code = CL) 108 MMOL/L 98-107 H CARBON DIOXIDE (test code = CO2) MMOL/L 22-30 GLUCOSE (test code = GLU) MG/DL 74-106 BLOOD UREA NITROGEN (test code = BUN) MG/DL 9-20 GLOMERULAR FILTRATION RATE (test code = GFR) > 60 Reporting units: ml/min/1.73 m2 (Modified MDRD Formula)Reference Range: > or = 60 ml/min/1.73 m2 CREATININE (test code = CREAT) 0.90 MG/DL 0.66-1.25 N CALCIUM (test code = CA) MG/DL 8.7-9.7 CALL *[id number] METABOLIC [id number] 14:40:00* Test Item Value Reference Range Interpretation Comme nts SODIUM (test code = NA) 139 MMOL/L 137-145 N POTASSIUM (test code = K) 4.4 MMOL/L 3.5-5.1 N CHLORIDE (test code = CL) 108 MMOL/L 98-107 H CARBON DIOXIDE (test code = CO2) MMOL/L 22-30 GLUCOSE (test code = GLU) MG/DL 74-106 BLOOD UREA NITROGEN (test co de = BUN) MG/DL 9-20 GLOMERULAR FILTRATION RATE ( test code = GFR) CREATININE (test code = CREAT) MG/DL 0.66-1.25 CALCIUM (test code = CA) MG/DL 8.7-9.7 CALL *[id number] W/AUTO [id number] 14:36:00* Test Item Value Reference Range Interpretation Comme nts WHITE BLOOD CELL (test code = WBC) 11.4 K/MM3 3.8-9.8 H RED BLOOD CELL (test code = RBC) 3.17 M/MM3 3.95-5.67 L HEMOGLOBIN (test code = HGB) 10.3 G/DL 12.4-16.7 L HEMATOCRIT (test code = HCT) 29.3 % 35.9-49.5 L MEAN CELL VOLUME (test code = MCV) 92 fL 81.7-96.1 N MEAN CELL HGB (test code = MCH) 32.5 pg 27.6-33.2 N MEAN CELL HGB CONCETRATION (test code = MCHC) 35.2 % 32.9-35.5 N RED CELL DISTRIBUTION WIDTH (test code = RDW) 12.7 % 12.1-15.2 N PLATELET COUNT (test code = PLT) 166 K/MM3 129-368 N MEAN PLATELET VOLUME (test c ode = MPV) 9.1 fl 7.4-10.4 N NEUTROPHIL % (test code = NT%) 74.5 % 43-75 N IMMATURE GRANULOCYTE % (test code = IG%) 0.8 % 0.0-2.0 N LYMPHOCYTE % (test code = LY%) 12.5 % 14-44 L MONOCYTE % (test code = MO%) 10.5 % 4-13 N EOSINOPHIL % (test code = EO%) 1.2 % 0-6 N BASOPHIL % (test code = BA%) 0.5 % 0-2 N NUCLEATED RBC % (test code = NRBC%) 0.0 % 0-1.0 N NEUTROPHIL # (test code = NT#) 8.52 K/mm3 2.0-7.6 H IMMATURE GRANULOCYTE # (test code = IG#) 0.09 x10 3/uL 0-0.03 H LYMPHOCYTE # (test code = LY#) 1.43 K/mm3 1.0-3.8 N MONOCYTE # (test code = MO#) 1.20 K/mm3 0.1-0.8 H EOSINOPHIL # (test code = EO#) 0.14 K/mm3 0.0-0.2 N BASOPHIL # (test code = BA#) 0.06 K/mm3 0.0-0.2 N NUCLEATED RBC # (test code = NRBC#) 0.00 K/mm3 0.0-0.1 N CALL *[id number] 13:27:00* Test Item Value Reference Range Interpretation Comme nts POTASSIUM (test code = K) 5.5 MMOL/L 3.5-5.1 H CALL *[id number] 13:27:00* Test Item Value Reference Range Interpretation Comme nts GLUCOSE (test code = GLU) 134 MG/DL 74-106 H CALL *[id number] 13:18:00* Test Item Value Reference Range Interpretation Comme nts POTASSIUM (test code = K) 5.5 MMOL/L 3.5-5.1 H CALL *[id number] 13:18:00* Test Item Value Reference Range Interpretation Comme nts GLUCOSE (test code = GLU) MG/DL 74-106 CALL *[id number] 13:09:00* Test Item Value Reference Range Interpretation Comme nts HEMOGLOBIN (test code = HGB) 8.7 G/DL 12.4-16.7 L HEMATOCRIT (test code = HCT) 25.2 % 35.9-49.5 L CALL *[id number] 12:27:00* Test Item Value Reference Range Interpretation Comme nts POTASSIUM (test code = K) 4.7 MMOL/L 3.5-5.1 N CALL 8482 [id number] 12:27:00* Test Item Value Reference Range Interpretation Comme nts GLUCOSE (test code = GLU) 172 MG/DL 74-106 H CALL 8482 [id number] 12:24:00* Test Item Value Reference Range Interpretation Comme nts POTASSIUM (test code = K) 4.7 MMOL/L 3.5-5.1 N CALL 8482 [id number] 12:24:00* Test Item Value Reference Range Interpretation Comme nts GLUCOSE (test code = GLU) MG/DL 74-106 CALL 8482 STATHGB [id number] 12:03:00* Test Item Value Reference Range Interpretation Comme nts HEMOGLOBIN (test code = HGB) 8.9 G/DL 12.4-16.7 L HEMATOCRIT (test code = HCT) 26.0 % 35.9-49.5 L CALL 8482 FAST FELTInsightera METABOLIC [id number] 09:44:00* Test Item Value Reference Range Interpretation Comme nts SODIUM (test code = NA) 138 MMOL/L 137-145 N POTASSIUM (test code = K) 3.6 MMOL/L 3.5-5.1 N CHLORIDE (test code = CL) 104 MMOL/L 98-107 N CARBON DIOXIDE (test code = CO2) 26 MMOL/L 22-30 N GLUCOSE (test code = GLU) 115 MG/DL 74-106 H BLOOD UREA NITROGEN (test code = BUN) 13 MG/DL 9-20 N GLOMERULAR FILTRATION RATE (test code = GFR) > 60 Reporting units: ml/min/1.73 m2 (Modified MDRD Formula)Reference Range: > or = 60 ml/min/1.73 m2 CREATININE (test code = CREAT) 0.80 MG/DL 0.66-1.25 N CALCIUM (test code = CA) 9.2 MG/DL 8.4-10.2 N CALL 8482 FAST FELTInsightera METABOLIC [id number] 09:43:00* Test Item Value Reference Range Interpretation Comme nts SODIUM (test code = NA) 138 MMOL/L 137-145 N POTASSIUM (test code = K) 3.6 MMOL/L 3.5-5.1 N CHLORIDE (test code = CL) 104 MMOL/L 98-107 N CARBON DIOXIDE (test code = CO2) MMOL/L 22-30 GLUCOSE (test code = GLU) MG/DL 74-106 BLOOD UREA NITROGEN (test code = BUN) MG/DL 9-20 GLOMERULAR FILTRATION RATE (test code = GFR) > 60 Reporting units: ml/min/1.73 m2 (Modified MDRD Formula)Reference Range: > or = 60 ml/min/1.73 m2 CREATININE (test code = CREAT) 0.80 MG/DL 0.66-1.25 N CALCIUM (test code = CA) MG/DL 8.7-9.7 CALL 8482 FAST FELTInsightera METABOLIC [id number] 09:42:00* Test Item Value Reference Range Interpretation Comme nts SODIUM (test code = NA) 138 MMOL/L 137-145 N POTASSIUM (test code = K) 3.6 MMOL/L 3.5-5.1 N CHLORIDE (test code = CL) 104 MMOL/L 98-107 N CARBON DIOXIDE (test code = CO2) MMOL/L 22-30 GLUCOSE (test code = GLU) MG/DL 74-106 BLOOD UREA NITROGEN (test co de = BUN) MG/DL 9-20 GLOMERULAR FILTRATION RATE ( test code = GFR) CREATININE (test code = CREAT) MG/DL 0.66-1.25 CALCIUM (test code = CA) MG/DL 8.7-9.7 CALL 8482 [facility] W/AUTO [id number] 09:31:00* Test Item Value Reference Range Interpretation Comme nts WHITE BLOOD CELL (test code = WBC) 4.1 K/MM3 3.8-9.8 N RED BLOOD CELL (test code = RBC) 3.76 M/MM3 3.95-5.67 L HEMOGLOBIN (test code = HGB) 12.1 G/DL 12.4-16.7 L HEMATOCRIT (test code = HCT) 34.4 % 35.9-49.5 L MEAN CELL VOLUME (test code = MCV) 92 fL 81.7-96.1 N MEAN CELL HGB (test code = MCH) 32.2 pg 27.6-33.2 N MEAN CELL HGB CONCETRATION (test code = MCHC) 35.2 % 32.9-35.5 N RED CELL DISTRIBUTION WIDTH (test code = RDW) 12.7 % 12.1-15.2 N PLATELET COUNT (test code = PLT) 196 K/MM3 129-368 N MEAN PLATELET VOLUME (test c ode = MPV) 8.8 fl 7.4-10.4 N NEUTROPHIL % (test code = NT%) 51.5 % 43-75 N IMMATURE GRANULOCYTE % (test code = IG%) 0.2 % 0.0-2.0 N LYMPHOCYTE % (test code = LY%) 24.9 % 14-44 N MONOCYTE % (test code = MO%) 17.0 % 4-13 H EOSINOPHIL % (test code = EO%) 5.4 % 0-6 N BASOPHIL % (test code = BA%) 1.0 % 0-2 N NUCLEATED RBC % (test code = NRBC%) 0.0 % 0-1.0 N NEUTROPHIL # (test code = NT#) 2.09 K/mm3 2.0-7.6 N IMMATURE GRANULOCYTE # (test code = IG#) 0.01 x10 3/uL 0-0.03 N LYMPHOCYTE # (test code = LY#) 1.01 K/mm3 1.0-3.8 N MONOCYTE # (test code = MO#) 0.69 K/mm3 0.1-0.8 N EOSINOPHIL # (test code = EO#) 0.22 K/mm3 0.0-0.2 H BASOPHIL # (test code = BA#) 0.04 K/mm3 0.0-0.2 N NUCLEATED RBC # (test code = NRBC#) 0.00 K/mm3 0.0-0.1 N CALL 8482 [facility] [id number] 08:46:00* Test Item Value Reference Range Interpretation Comme nts ARTERIAL BLOOD GAS PH (test code = PHA) 7.45 mmHg 7.35-7.45 N ARTERIAL BLOOD GAS PCO2 (melissa t code = PCO2A) 37.2 mmHg 35.0-45.0 N ARTERIAL BLOOD GAS PO2 (test code = PO2A) 89.1 mmol/L 80.0-100.0 N BICARBONATE TOTAL HCO3 (test code = HCO3) 25.1 mmol/L 20.0-26.0 N BASE EXCESS (test code = ОЛЬГА) 1.3 mmol/L -3.0-3.0 N ABG O2 SATURATION (test code = SATA) 97.2 % 95.0-100.0 N ABG DELIVERY (test code = ALEXANDRO) RM AIR ABG TEMPERATURE (test code = TEMPA) 37.0 C >37 ABG SITE (test code = SITEA) AL ALLENS TEST (test code = ALLENS) NA CHECK FIO2 (test code = COHBGFFIO2) 21 % HIV 12 AB [id number] 13:55:00* Test Item Value Reference Range Interpretation Comme nts HIV 1 2 COMBO AG/AB SCREEN (test code = [id number]) AB/AG NON REACTIVE NONREACTIVE - XR CHEST 2 [id number] 13:49:00Patient Name: LEATHA CORONEL Unit No: [id number] EXAMS: CPT CODE: [id number] XR CHEST 2 V [id number] code: B2 Chest two views frontal and lateral Indication: PREOP. Comparison: None Findings:Mild cardiomegaly. Tortuosity of the thoracic aorta. Costophrenic angles are clear. Lungs are clear. Thoracic spondylosis. Impression: 1. No radiographic evidence of acute cardiopulmonary disease. at 1349 Reported and signed by: Joe Carnes M.D. CC: George Connor MD Technologist: Viki Crockett RT(R) Transcrpt Date/ Tm/Trnsp: 03/30/2019 ([id number]) [email or web address] Orig Print D/T: S: 03/30/2019 ([id number]) [facility] NAME: LEATHA CORONEL [id number] [address] PHYS: [place] [address] : 1950 AGE: 68 SEX: M LOC: U PHONE #: [phone] EXAM DATE: 03/30/2019 STATUS: PRE IN FAX #: [phone] RADIOLOGY NO: PAGE 1 Signed ReportPROTHROMBIN [id number] 13:20:00* Test Item Value Reference Range Interpretation Comme nts PROTHROMBIN TIME PATIENT (test code = PTP) 12.2 SECONDS 9.4-12.5 N INTERNATIONAL NORMAL RATIO (test code = INR) 1.1 The INR is to be used only for monitoring oral anticoagulanttherap y. INDICATION INR VALUE -------1. Prophylaxis, deep venous thrombosis, including high risk surgery. 2.0 - 3.0 2. Prophylaxis, deep venous thrombosis, hip surgery, treatment for deep venous thrombosis or pulmonary prevention of systemic embolism in patients with valvular heart disease, atrial fibrillation, tissue heart valve, or acute myocardial infarction. 2.0 - 3.0 3. Mechanical prosthesis heart valves, recurrent systemic embolism. 3.0 - 4.5 IS PATIENT ON ANTICOAGULANTS: NPTT [id number] 13:20:00* Test Item Value Reference Range Interpretation Comme nts PTT ACTIVATED (test code = APTT) 57.4 SECONDS 25.1-36.5 H IS PATIENT ON ANTICOAGULANTS: NPLT RESPONSE TO [id number] 13:20:00* Test Item Value Reference Range Interpretation Comme nts PLT RESPONSE TO PLAVIX (test code = PLAVRES) 281 PRU 194-418 N P2Y12 Resu lts Interpretation: Test results are in P2Y12 Reaction Units (PRU). Pre-Drug Reference Range is 194-418. Pre-drug platelet function estimates the total possible platelet aggregation independent of P2Y12 inhibitor drugs. Values <194 could be due to low HCT, low platelet count, or presence of IIb/IIIa inhibitors. Post-Drug Results: Lower PRU levels are associated with expected antiplatelet effect. Values may be below the stated reference range. Studies show that patients with <230 PRU had fewer adverse events. IS PATIENT ON ANTICOAGULANTS: NCOMPREHENSIVE METABOLIC [id number] 13:16:00 * Test Item Value Reference Range Interpretation Comme nts SODIUM (test code = NA) 135 MMOL/L 137-145 L POTASSIUM (test code = K) 3.8 MMOL/L 3.5-5.1 N CHLORIDE (test code = CL) 100 MMOL/L 98-107 N CARBON DIOXIDE (test code = CO2) 26 MMOL/L 22-30 N GLUCOSE (test code = GLU) 100 MG/DL 74-106 N BLOOD UREA NITROGEN (test code = BUN) 20 MG/DL 9-20 N GLOMERULAR FILTRATION RATE (test code = GFR) > 60 Reporting units: ml/min/1.73 m2 (Modified MDRD Formula)Reference Range: > or = 60 ml/min/1.73 m2 CREATININE (test code = CREAT) 1.10 MG/DL 0.66-1.25 N TOTAL PROTEIN (test code = PROT) 7.6 G/DL 6.2-7.6 N ALBUMIN (test code = ALB) 4.1 G/DL 3.5-5.0 N CALCIUM (test code = CA) 10.3 MG/DL 8.4-10.2 H BILIRUBIN TOTAL (test code = BILT) 0.4 MG/DL 0.2-1.3 N SGOT/AST (test code = AST) 34 UNITS/L 17-59 N SGPT/ALT (test code = ALT) 26 UNITS/L <50 ALKALINE PHOSPHATASE (test code = ALKP) 77 UNITS/L 38-126 N COMPREHENSIVE METABOLIC [id number] 13:15:00* Test Item Value Reference Range Interpretation Comme nts SODIUM (test code = NA) 135 MMOL/L 137-145 L POTASSIUM (test code = K) 3.8 MMOL/L 3.5-5.1 N CHLORIDE (test code = CL) 100 MMOL/L 98-107 N CARBON DIOXIDE (test code = CO2) 26 MMOL/L 22-30 N GLUCOSE (test code = GLU) MG/DL 74-106 BLOOD UREA NITROGEN (test code = BUN) 20 MG/DL 9-20 N GLOMERULAR FILTRATION RATE (test code = GFR) > 60 Reporting units: ml/min/1.73 m2 (Modified MDRD Formula)Reference Range: > or = 60 ml/min/1.73 m2 CREATININE (test code = CREAT) 1.10 MG/DL 0.66-1.25 N TOTAL PROTEIN (test code = PROT) 7.6 G/DL 6.2-7.6 N ALBUMIN (test code = ALB) 4.1 G/DL 3.5-5.0 N CALCIUM (test code = CA) MG/DL 8.7-9.7 BILIRUBIN TOTAL (test code = BILT) 0.4 MG/DL 0.2-1.3 N SGOT/AST (test code = AST) 34 UNITS/L 17-59 N SGPT/ALT (test code = ALT) UNITS/L <50 ALKALINE PHOSPHATASE (test code = ALKP) UNITS/L 38-126 COMPREHENSIVE METABOLIC [id number] 13:13:00* Test Item Value Reference Range Interpretation Comme nts SODIUM (test code = NA) 135 MMOL/L 137-145 L POTASSIUM (test code = K) 3.8 MMOL/L 3.5-5.1 N CHLORIDE (test code = CL) 100 MMOL/L 98-107 N CARBON DIOXIDE (test code = CO2) MMOL/L 22-30 GLUCOSE (test code = GLU) MG/DL 74-106 BLOOD UREA NITROGEN (test co de = BUN) MG/DL 9-20 GLOMERULAR FILTRATION RATE ( test code = GFR) CREATININE (test code = CREAT) MG/DL 0.66-1.25 TOTAL PROTEIN (test code = PROT) G/DL 6.2-7.6 ALBUMIN (test code = ALB) 4.1 G/DL 3.5-5.0 N CALCIUM (test code = CA) MG/DL 8.7-9.7 BILIRUBIN TOTAL (test code = BILT) MG/DL 0.2-1.3 SGOT/AST (test code = AST) UNITS/L 15-37 SGPT/ALT (test code = ALT) UNITS/L <50 ALKALINE PHOSPHATASE (test c ode = ALKP) UNITS/L 38-126 COMPREHENSIVE METABOLIC [id number] 13:12:00* Test Item Value Reference Range Interpretation Comme nts SODIUM (test code = NA) MMOL/L 137-145 POTASSIUM (test code = K) MMOL/L 3.5-5.1 CHLORIDE (test code = CL) MMOL/L 98-107 CARBON DIOXIDE (test code = CO2) MMOL/L 22-30 GLUCOSE (test code = GLU) MG/DL 74-106 BLOOD UREA NITROGEN (test co de = BUN) MG/DL 9-20 GLOMERULAR FILTRATION RATE ( test code = GFR) CREATININE (test code = CREAT) MG/DL 0.66-1.25 TOTAL PROTEIN (test code = PROT) G/DL 6.2-7.6 ALBUMIN (test code = ALB) 4.1 G/DL 3.5-5.0 N CALCIUM (test code = CA) MG/DL 8.7-9.7 BILIRUBIN TOTAL (test code = BILT) MG/DL 0.2-1.3 SGOT/AST (test code = AST) UNITS/L 15-37 SGPT/ALT (test code = ALT) UNITS/L <50 ALKALINE PHOSPHATASE (test c ode = ALKP) UNITS/L 38-126 GLYCOSYLATED HEMOGLOBIN [id number] 13:10:00* Test Item Value Reference Range Interpretation Comme nts GLYCOSYLATED HEMOGLOBIN (HA1C) (test code = GLYHGB) 5.6 % 4.8-5.9 N Any condition th at shortens erythocyte survival or decreasesmean erythrocyte age (e.g., recovery from acute blood loss,hemolytic anemia) will falsely lower HGBA1c resultsregardless of the method used. HGBA1c results from patientswith HbSS, HbCC, and HbSc must be interpreted with cautiongiven the pathological processes, including anemia,increased red cell turnover, transfusion requirements, thatadversely impact HGBA1c as a marker of long-term glycemiccontrol. Alternative forms of testing such as fructosamineshould be considered for these patients. MEAN BLOOD GLUCOSE (test code = MBG) 114 MG/DL 70-110 H PROTHROMBIN [id number] 13:10:00* Test Item Value Reference Range Interpretation Comme nts PROTHROMBIN TIME PATIENT (test code = PTP) 12.2 SECONDS 9.4-12.5 N INTERNATIONAL NORMAL RATIO (test code = INR) 1.1 The INR is to be used only for monitoring oral anticoagulanttherap y. INDICATION INR VALUE -------1. Prophylaxis, deep venous thrombosis, including high risk surgery. 2.0 - 3.0 2. Prophylaxis, deep venous thrombosis, hip surgery, treatment for deep venous thrombosis or pulmonary prevention of systemic embolism in patients with valvular heart disease, atrial fibrillation, tissue heart valve, or acute myocardial infarction. 2.0 - 3.0 3. Mechanical prosthesis heart valves, recurrent systemic embolism. 3.0 - 4.5 IS PATIENT ON ANTICOAGULANTS: NPTT [id number] 13:10:00* Test Item Value Reference Range Interpretation Comme nts PTT ACTIVATED (test code = APTT) 57.4 SECONDS 25.1-36.5 H IS PATIENT ON ANTICOAGULANTS: NPLT RESPONSE TO [id number] 13:10:00* Test Item Value Reference Range Interpretation Comme nts PLT RESPONSE TO PLAVIX (test code = PLAVRES) PRU 194-418 IS PATIENT ON ANTICOAGULANTS: NCBC W/AUTO [id number] 13:00:00* Test Item Value Reference Range Interpretation Comme nts WHITE BLOOD CELL (test code = WBC) 3.8 K/MM3 3.8-9.8 N RED BLOOD CELL (test code = RBC) 4.14 M/MM3 3.95-5.67 N HEMOGLOBIN (test code = HGB) 13.2 G/DL 12.4-16.7 N HEMATOCRIT (test code = HCT) 38.1 % 35.9-49.5 N MEAN CELL VOLUME (test code = MCV) 92 fL 81.7-96.1 N MEAN CELL HGB (test code = MCH) 31.9 pg 27.6-33.2 N MEAN CELL HGB CONCETRATION (test code = MCHC) 34.6 % 32.9-35.5 N RED CELL DISTRIBUTION WIDTH (test code = RDW) 12.6 % 12.1-15.2 N PLATELET COUNT (test code = PLT) 208 K/MM3 129-368 N MEAN PLATELET VOLUME (test c ode = MPV) 8.8 fl 7.4-10.4 N NEUTROPHIL % (test code = NT%) 53.0 % 43-75 N IMMATURE GRANULOCYTE % (test code = IG%) 0.3 % 0.0-2.0 N LYMPHOCYTE % (test code = LY%) 24.5 % 14-44 N MONOCYTE % (test code = MO%) 15.0 % 4-13 H EOSINOPHIL % (test code = EO%) 6.1 % 0-6 H BASOPHIL % (test code = BA%) 1.1 % 0-2 N NUCLEATED RBC % (test code = NRBC%) 0.0 % 0-1.0 N NEUTROPHIL # (test code = NT#) 2.02 K/mm3 2.0-7.6 N IMMATURE GRANULOCYTE # (test code = IG#) 0.01 x10 3/uL 0-0.03 N LYMPHOCYTE # (test code = LY#) 0.93 K/mm3 1.0-3.8 L MONOCYTE # (test code = MO#) 0.57 K/mm3 0.1-0.8 N EOSINOPHIL # (test code = EO#) 0.23 K/mm3 0.0-0.2 H BASOPHIL # (test code = BA#) 0.04 K/mm3 0.0-0.2 N NUCLEATED RBC # (test code = NRBC#) 0.00 K/mm3 0.0-0.1 N BASIC METABOLIC [id number] 05:58:00* Test Item Value Reference Range Interpretation Comme nts SODIUM (test code = NA) 135 MMOL/L 137-145 L POTASSIUM (test code = K) 3.8 MMOL/L 3.5-5.1 N CHLORIDE (test code = CL) 100 MMOL/L 98-107 N CARBON DIOXIDE (test code = CO2) 28 MMOL/L 22-30 N GLUCOSE (test code = GLU) 109 MG/DL 74-106 H BLOOD UREA NITROGEN (test code = BUN) 20 MG/DL 9-20 N GLOMERULAR FILTRATION RATE (test code = GFR) > 60 Reporting units: ml/min/1.73 m2 (Modified MDRD Formula)Reference Range: > or = 60 ml/min/1.73 m2 CREATININE (test code = CREAT) 1.10 MG/DL 0.66-1.25 N CALCIUM (test code = CA) 10.4 MG/DL 8.4-10.2 H Comments to Java Scala Developer: WILL BRING TO LABIs this a LINE draw? NLIPID PROFILE (CORONARY RISK)2019-03-26 05:58:00* Test Item Value Reference Range Interpretation Comme nts TRIGLYCERIDES (test code = TRIG) 114 MG/DL TRIGLYCERIDES REFERENCE RANGE:Normal: <150 mg/dLBorderline High: 150-199 mg/dLHigh: 200-499 mg/dLVery High: >=500 mg/dL CHOLESTEROL (test code = CHOL) 182 MG/DL <200 HDL CHOLESTEROL (test code = HDL) 68 MG/DL 40-59 H LIPOPROTEIN LDL (test code = LDL) 85 MG/DL 0-99 N OPTIMAL......... <100 mg/dLNEAR OPTIMAL/ABOVE OPTIMAL.........100-12 9 mg/dL BORDERLINE HIGH.........130-159 mg/dL HIGH.........160-189 mg/dL VERY HIGH.........>/= 190 mg/dL Comments to Java Scala Developer: WILL BRING TO LABIs this a LINE draw? NMAGNESIUM 2019-03-26 05:58:00* Test Item Value Reference Range Interpretation Comme nts MAGNESIUM (test code = MAG) 2.0 MG/DL 1.6-2.3 N Comments to Java Scala Developer: WILL BRING TO LABIs this a LINE draw? NPROTHROMBIN [id number] 05:57:00* Test Item Value Reference Range Interpretation Comme nts PROTHROMBIN TIME PATIENT (test code = PTP) 12.0 SECONDS 9.4-12.5 N INTERNATIONAL NORMAL RATIO (test code = INR) 1.1 The INR is to be used only for monitoring oral anticoagulanttherap y. INDICATION INR VALUE -------1. Prophylaxis, deep venous thrombosis, including high risk surgery. 2.0 - 3.0 2. Prophylaxis, deep venous thrombosis, hip surgery, treatment for deep venous thrombosis or pulmonary prevention of systemic embolism in patients with valvular heart disease, atrial fibrillation, tissue heart valve, or acute myocardial infarction. 2.0 - 3.0 3. Mechanical prosthesis heart valves, recurrent systemic embolism. 3.0 - 4.5 Comments to Java Scala Developer: WILL BRING TO LABPTT [id number] 05:57:00* Test Item Value Reference Range Interpretation Comme nts PTT ACTIVATED (test code = APTT) 53.8 SECONDS 25.1-36.5 H Comments to Java Scala Developer: WILL BRING TO LABBASIC METABOLIC [id number] 05:47:00* Test Item Value Reference Range Interpretation Comme nts SODIUM (test code = NA) 135 MMOL/L 137-145 L POTASSIUM (test code = K) 3.8 MMOL/L 3.5-5.1 N CHLORIDE (test code = CL) 100 MMOL/L 98-107 N CARBON DIOXIDE (test code = CO2) 28 MMOL/L 22-30 N GLUCOSE (test code = GLU) 109 MG/DL 74-106 H BLOOD UREA NITROGEN (test code = BUN) 20 MG/DL 9-20 N GLOMERULAR FILTRATION RATE (test code = GFR) > 60 Reporting units: ml/min/1.73 m2 (Modified MDRD Formula)Reference Range: > or = 60 ml/min/1.73 m2 CREATININE (test code = CREAT) 1.10 MG/DL 0.66-1.25 N CALCIUM (test code = CA) 10.4 MG/DL 8.4-10.2 H Comments to Java Scala Developer: WILL BRING TO LABIs this a LINE draw? NLIPID PROFILE (CORONARY RISK)2019-03-26 05:47:00* Test Item Value Reference Range Interpretation Comme nts TRIGLYCERIDES (test code = TRIG) 114 MG/DL TRIGLYCERIDES REFERENCE RANGE:Normal: <150 mg/dLBorderline High: 150-199 mg/dLHigh: 200-499 mg/dLVery High: >=500 mg/dL CHOLESTEROL (test code = CHOL) 182 MG/DL <200 HDL CHOLESTEROL (test code = HDL) 68 MG/DL 40-59 H LIPOPROTEIN LDL (test code = LDL) MG/DL 0-99 Comments to Java Scala Developer: WILL BRING TO LABIs this a LINE draw? NMAGNESIUM 2019-03-26 05:47:00* Test Item Value Reference Range Interpretation Comme nts MAGNESIUM (test code = MAG) 2.0 MG/DL 1.6-2.3 N Comments to Java Scala Developer: WILL BRING TO LABIs this a LINE draw? NBASIC METABOLIC [id number] 05:46:00* Test Item Value Reference Range Interpretation Comme nts SODIUM (test code = NA) 135 MMOL/L 137-145 L POTASSIUM (test code = K) 3.8 MMOL/L 3.5-5.1 N CHLORIDE (test code = CL) 100 MMOL/L 98-107 N CARBON DIOXIDE (test code = CO2) 28 MMOL/L 22-30 N GLUCOSE (test code = GLU) MG/DL 74-106 BLOOD UREA NITROGEN (test code = BUN) 20 MG/DL 9-20 N GLOMERULAR FILTRATION RATE (test code = GFR) > 60 Reporting units: ml/min/1.73 m2 (Modified MDRD Formula)Reference Range: > or = 60 ml/min/1.73 m2 CREATININE (test code = CREAT) 1.10 MG/DL 0.66-1.25 N CALCIUM (test code = CA) MG/DL 8.7-9.7 Comments to Java Scala Developer: WILL BRING TO LABIs this a LINE draw? NLIPID PROFILE (CORONARY RISK)2019-03-26 05:46:00* Test Item Value Reference Range Interpretation Comme nts TRIGLYCERIDES (test code = TRIG) MG/DL CHOLESTEROL (test code = CHOL) 182 MG/DL <200 HDL CHOLESTEROL (test code = HDL) MG/DL 40-59 LIPOPROTEIN LDL (test code = LDL) MG/DL 0-99 Comments to Java Scala Developer: WILL BRING TO LABIs this a LINE draw? NMAGNESIUM 2019-03-26 05:46:00* Test Item Value Reference Range Interpretation Comme nts MAGNESIUM (test code = MAG) MG/DL 1.6-2.3 Comments to Java Scala Developer: WILL BRING TO LABIs this a LINE draw? NBASIC METABOLIC [id number] 05:44:00* Test Item Value Reference Range Interpretation Comme nts SODIUM (test code = NA) 135 MMOL/L 137-145 L POTASSIUM (test code = K) 3.8 MMOL/L 3.5-5.1 N CHLORIDE (test code = CL) 100 MMOL/L 98-107 N CARBON DIOXIDE (test code = CO2) MMOL/L 22-30 GLUCOSE (test code = GLU) MG/DL 74-106 BLOOD UREA NITROGEN (test co de = BUN) MG/DL 9-20 GLOMERULAR FILTRATION RATE ( test code = GFR) CREATININE (test code = CREAT) MG/DL 0.66-1.25 CALCIUM (test code = CA) MG/DL 8.7-9.7 Comments to Java Scala Developer: WILL BRING TO LABIs this a LINE draw? NLIPID PROFILE (CORONARY RISK)2019-03-26 05:44:00* Test Item Value Reference Range Interpretation Comme nts TRIGLYCERIDES (test code = TRIG) MG/DL CHOLESTEROL (test code = CHOL) MG/DL <200 HDL CHOLESTEROL (test code = HDL) MG/DL 40-59 LIPOPROTEIN LDL (test code = LDL) MG/DL 0-99 Comments to Java Scala Developer: WILL BRING TO LABIs this a LINE draw? NMAGNESIUM 2019-03-26 05:44:00* Test Item Value Reference Range Interpretation Comme nts MAGNESIUM (test code = MAG) MG/DL 1.6-2.3 Comments to Java Scala Developer: WILL BRING TO LABIs this a LINE draw? NBASIC METABOLIC [id number] 05:43:00* Test Item Value Reference Range Interpretation Comme nts SODIUM (test code = NA) 135 MMOL/L 137-145 L POTASSIUM (test code = K) MMOL/L 3.5-5.1 CHLORIDE (test code = CL) 100 MMOL/L 98-107 N CARBON DIOXIDE (test code = CO2) MMOL/L 22-30 GLUCOSE (test code = GLU) MG/DL 74-106 BLOOD UREA NITROGEN (test co de = BUN) MG/DL 9-20 GLOMERULAR FILTRATION RATE ( test code = GFR) CREATININE (test code = CREAT) MG/DL 0.66-1.25 CALCIUM (test code = CA) MG/DL 8.7-9.7 Comments to Java Scal[employer] Developer: WILL BRING TO LABIs this a LINE draw? NLIPID PROFILE (CORONARY RISK)2019-03-26 05:43:00* Test Item Value Reference Range Interpretation Comme nts TRIGLYCERIDES (test code = TRIG) MG/DL CHOLESTEROL (test code = CHOL) MG/DL <200 HDL CHOLESTEROL (test code = HDL) MG/DL 40-59 LIPOPROTEIN LDL (test code = LDL) MG/DL 0-99 Comments to Java Scala Developer: WILL BRING TO LABIs this a LINE draw? NMAGNESIUM 2019-03-26 05:43:00* Test Item Value Reference Range Interpretation Comme nts MAGNESIUM (test code = MAG) MG/DL 1.6-2.3 Comments to Java Scala Developer: WILL BRING TO LABIs this a LINE draw? NCBC W/AUTO DIFF 2019-03-26 05:40:00* Test Item Value Reference Range Interpretation Comme nts WHITE BLOOD CELL (test code = WBC) 4.5 K/MM3 3.8-9.8 N RED BLOOD CELL (test code = RBC) 4.38 M/MM3 3.95-5.67 N HEMOGLOBIN (test code = HGB) 13.8 G/DL 12.4-16.7 N HEMATOCRIT (test code = HCT) 39.5 % 35.9-49.5 N MEAN CELL VOLUME (test code = MCV) 90 fL 81.7-96.1 N MEAN CELL HGB (test code = MCH) 31.5 pg 27.6-33.2 N MEAN CELL HGB CONCETRATION (test code = MCHC) 34.9 % 32.9-35.5 N RED CELL DISTRIBUTION WIDTH (test code = RDW) 12.5 % 12.1-15.2 N PLATELET COUNT (test code = PLT) 176 K/MM3 129-368 N MEAN PLATELET VOLUME (test c ode = MPV) 9.0 fl 7.4-10.4 N NEUTROPHIL % (test code = NT%) 49.2 % 43-75 N IMMATURE GRANULOCYTE % (test code = IG%) 0.4 % 0.0-2.0 N LYMPHOCYTE % (test code = LY%) 27.1 % 14-44 N MONOCYTE % (test code = MO%) 15.9 % 4-13 H EOSINOPHIL % (test code = EO%) 6.5 % 0-6 H BASOPHIL % (test code = BA%) 0.9 % 0-2 N NUCLEATED RBC % (test code = NRBC%) 0.0 % 0-1.0 N NEUTROPHIL # (test code = NT#) 2.20 K/mm3 2.0-7.6 N IMMATURE GRANULOCYTE # (test code = IG#) 0.02 x10 3/uL 0-0.03 N LYMPHOCYTE # (test code = LY#) 1.21 K/mm3 1.0-3.8 N MONOCYTE # (test code = MO#) 0.71 K/mm3 0.1-0.8 N EOSINOPHIL # (test code = EO#) 0.29 K/mm3 0.0-0.2 H BASOPHIL # (test code = BA#) 0.04 K/mm3 0.0-0.2 N NUCLEATED RBC # (test code = NRBC#) 0.00 K/mm3 0.0-0.1 N XR HIPS 2 VW [id number] 19:53:37HISTORY:?Pain. Generalized osteoarthrosis. FINDINGS: AP and lateral views of right hip showed no acute fracture ordislocation. No significant changes of arthritis detected. No signs of AVNin the femoral head or aggressive bone lesions seen. Calcification near thelesser trochanter could be arterial or within the iliopsoas tendon. CONCLUSIONS: No acute fracture or dislocation in right hip. [facility], Radiant Results Inft User - 10/28/2018 2:53 PM CDTHISTORY: Pain. Generalized osteoarthrosis.FINDINGS: AP and lateral views of right hip showed no acute fracture ordislocation. No significant changes of arthritis detected. No signs of AVNin the femoral head or aggressive bone lesions seen. Calcification near thelesser trochanter could be arterial or within the iliopsoas tendon.CONCLUSIONS: No acute fracture or dislocation in right hip.[facility] KNEE <3 VW RIGHT 2018-10-28 19:52:34HISTORY: Generalized osteoarthrosis. FINDINGS: AP and lateral views of right knee showed no acute fracture ordislocation. Moderate hypertrophic degenerative osteoarthritis is notedaffecting all 3 compartments of the knee joint with narrowed patellofemoraljoint space, large osteophytes along the articular edges of all the bonesand minimal narrowing of lateral and medial knee joint spaces with smallknee joint effusion. Additional calcifications are seen in the softtissues, some of which could be venous type. No aggressive bone lesionsseen. CONCLUSIONS: Moderate tricompartment degenerative osteoarthritis of rightknee, more severe affecting patellofemoral joint with small right kneejoint effusion. [facility], Radiant Results Inft User - 10/28/2018 2:52 PM CDTHISTORY: Generalized osteoarthrosis.FINDINGS: AP and lateral views of right knee showed no acute fracture ordislocation. Moderate hypertrophic degenerative osteoarthritis is notedaffecting all 3 compartments of the knee joint with narrowed patellofemoraljoint space, large osteophytes along the articular edges of all the bonesand minimal narrowing of lateral and medial knee joint spaces with smallknee joint effusion. Additional calcifications are seen in the softtissues, some of which could be venous type. No aggressive bone lesionsseen .CONCLUSIONS: Moderate tricompartment degenerative osteoarthritis of rightknee, more severe affecting patellofemoral joint with small right kneejoint effusion. [facility] Notes Date/Time Note Provider Source 2019-04-06 19:54:00 [facility] ([facility]) Hospitalist Discharge Summary REPORT#:[id number] REPORT STATUS: Signed DATE:04/06/19 TIME: 1953 PATIENT: LEATHA CORONEL UNIT #: [id number] ROOM/BED: [address] : [birth year] AGE: 68 SEX: M ATTEND: Zaid Nazario MD ADM AUTHOR: Zaid Nazario MD * ALL edits or amendments must be made on the electronic/computer document * PCP PCP PCP: PCP: George Connor MD Discharge to: home with home health [facility] General Information Date of admission: Observation Start Date: Date of admission: 04/01/19 Discharge date: 04/06/19 Admission diagnosis: - Coronary artery disease. - Hypertension. - Hyperlipidemia. 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 - HTN - DM Hospital course: Pt is a 68 y/o man, with a PMHx of coronary artery disease, ischemic cardiomyopathy, HTN, HLD, mitral valve prolapse, PVCs, carotid artery disease, lumbar disk disease and sinus allergies who was admitted to the hospital for coronary bypass surgery. A cardiac catheterization that was performed by Dr. Connor 03/26/2019 revealed multivessel CAD. He was referred to Dr Lazar for CABG. The patient underwent Aortocoronary artery bypass times 4. Procedure was uncomplicated and pt was admitted to the SICU for post operative recovery. The following day the patient was extubated and was feeling sore from his surgery. His home medications were resumed. He was evaluated by by PT/OT and was noted to be ambulating well. Pt was montitered in the SICU for the next 2 days. He was doing well with PT/OT but had some problems with sleep. He wanted to adjust his blood pressure medications especially his BB due to erectile dysfunction. His valsartan was d/c and lisinopril was started and later the dose of his amlodipine was also reduced. His blood pressure remained well controlled. He was transferred out of SICU to telemetry unit. He continue to improve; after pacer wires were removed he was discharged with instructions to follow up with Dr Lazar in 1-2 weeks. Med Rec Med Rec Discharge meds: Stop taking the following medications: MAGNESIUM OXIDE (MAGNESIUM OXIDE) 250 MG TAB 250 MILLIGRAM ORAL DAILY. CARVEDILOL (COREG) 25 MG TAB 25 MILLIGRAM ORAL TWICE DAILY WITH MEALS. VALSARTAN (DIOVAN) 320 MG TAB 320 MILLIGRAM ORAL DAILY. amLODIPine (NORVASC) 10 MG TAB 10 MILLIGRAM ORAL DAILY. MUPIROCIN (BACTROBAN 2% NASAL) 2 % OINTMENT 1 APPLIC NASAL TWICE DAILY. Continue taking these medications: CETIRIZINE (ZyrTEC) 5 MG TAB 5 MILLIGRAM ORAL TWICE DAILY. OMEGA-3 FATTY ACIDS (FISH OIL) 1,000 MG CAP 1,000 MILLIGRAM ORAL TWICE DAILY. MULTIVITAMIN (MULTI-DAY VITAMIN) 1 TAB TAB 1 TABLET ORAL DAILY. POTASSIUM GLUCONATE (POTASSIUM) 595 MG (99 MG) TAB 99 MILLIGRAM ORAL DAILY. Instructions: PATIENT TAKES 3 TABS PO DAILY MELOXICAM (MOBIC) 15 MG TAB 15 MILLIGRAM ORAL DAILY. PRAVASTATIN (PRAVACHOL) 40 MG TAB 40 MILLIGRAM ORAL DAILY. Instructions: PATIENT TAKES 1 1/2 TABS PO DAILY Start taking the following new medications: CLOPIDOGREL (PLAVIX) 75 MG TAB 75 MILLIGRAM ORAL DAILY. Qty = 30 Refills = 2 LISINOPRIL (ZESTRIL) 20 MG TAB 20 MILLIGRAM ORAL EVERY 12 HOURS. Qty = 60 Refills = 2 Instructions: Hold for systolic blood pressure less than 110 METOPROLOL TARTRATE (LOPRESSOR) 25 MG TAB 25 MILLIGRAM ORAL EVERY 12 HOURS. Qty = 60 Refills = 2 Instructions: Hold for systolic blood pressure less than 110 or heart rate less than 70 ASPIRIN (ASPIRIN) 81 MG TAB.CHEW 81 MILLIGRAM ORAL DAILY. Qty = 30 Refills = 2 DOCUSATE SODIUM (COLACE) 100 MG CAP 100 MILLIGRAM ORAL TWICE DAILY NEEDED. as needed for CONSTIPATION Qty = 60 No Refills The following medications have been changed: Old: FUROSEMIDE (LASIX) 20 MILLIGRAM ORAL DAILY. New: FUROSEMIDE (LASIX) 20 MG TAB 20 MILLIGRAM ORAL DAILY. Discharge Instructions Diet: cardiac Activity: as tolerated Wound/dressing care: Change dressing daily, OK to shower tomorrow, Meno incision with betadine, cover with dry dressing daily x 10 days pls see discharge instructions paperwork Prescriptions: e-prescribe Discharge management: less than 30 mins, face to face encounter Follow-up Appointments PCP: PCP: George Connor MD Follow up timeframe: In 1-2 weeks Special instructions: please call to schedule your appointment Attending Physician: Attending Physician: Zaid Nazario MD Follow up: In 1-2 weeks Special instructions: Please call to schedule follow up appointment Consulting provider 1: Provider 1: Albert Lazar MD Follow up timeframe: In 1-2 weeks Objective General VS/I O: Vital Signs: Date Time Temp Pulse Resp B/P B/P Pulse O2 O2 Flow FiO2 Mean Ox Delivery Rate 04/06 1136 98.2 90 20 134/78 96.3 99 04/06 0824 99 Room air 0.877501 21 04/06 0824 99 Room air [id number] 21 04/06 0734 98.2 96 20 158/88 111.0 98 04/06 0443 98.4 98 18 123/67 85.5 97 Room air 04/05 2310 98.2 91 18 130/79 96.3 96 Room air 24 hour I O ending at 0700: 04/06 0700 04/05 1900 Intake Total 225 Output Total 450 Balance -225 Intake, Oral 225 Number Voids 1 Output, Urine 450 Medications: Active Meds + DC'd Last 24 Hrs Lisinopril 20 MG Q12HR PO (DCD) Famotidine 20 MG BID PO (DC) Lactulose 20 GM BID PO (DCD) Docusate Sodium 100 MG BID PRN PRN PO (DCD) Tramadol HCl 50 MG Q8H PRN PRN PO (DCD) Aspirin 81 MG DAILY PO (DCD) Clopidogrel Bisulfate 75 MG DAILY PO (DCD) Metoprolol Tartrate 25 MG Q12HR PO (DCD) Atorvastatin Calcium 10 MG BEDTIME PO (DCD) Dextrose/Water 12.5 GM ASDIR PRN IV (DCD) Dextrose/Water 25 GM ASDIR PRN IV (DCD) Acetaminophen 650 MG Q4H PRN PRN PO (DCD) Hydrocodone Bitart/Acetaminophen 1 TAB Q4H PRN PRN PO (DCD) Hydrocodone Bitart/Acetaminophen 2 TAB Q4H PRN PRN PO (DCD) Meperidine HCl 25 MG Q6H PRN PRN IM (DCD) Meperidine HCl 50 MG Q6H PRN PRN IM (DCD) Ondansetron HCl 4 MG Q8H PRN PRN IV (DCD) Physical Exam General appearance: alert, awake, oriented, no acute distress Head/Eyes: atraumatic, clear cornea, EOMI, PERRL ENT: moist mucosal membranes, normal dentition, normal pharynx Neck: full range of motion, non-tender, no masses or swelling Cardiovascular: normal capillary refill, normal heart sounds, regular rate rhythm Respiratory: aerating well, clear to auscultation, symmetric expansion, no distress Abdomen: non-tender, soft, no distention, no guarding Genitourinary: no flank pain, no wiggins Rectal: not indicated Extremities: moves all, no edema Musculoskeletal: normal inspection, painless range of motion, no muscle spasm Neuro/DISASTER RECOVERY SPECIALIST: alert, oriented X 3, normal speech, no motor deficits, no sensory deficits Skin: dry, normal color, no rash Psychiatry: normal affect, normal judgment/insight, normal mood Results Findings/Data: Laboratory Tests 04/06 0504 Chemistry Sodium (137 - 145 MMOL/L) 132 L Potassium (3.5 - 5.1 MMOL/L) 3.5 Chloride (98 - 107 MMOL/L) 101 Carbon Dioxide (22 - 30 MMOL/L) 21 L Anion Gap (14 - 24 MMOL/L) 14 BUN (9 - 20 MG/DL) 14 Creatinine (0.66 - 1.25 MG/DL) 0.70 Glomerular Filtr Rate > 60 Glucose (74 - 106 MG/DL) 102 Calcium (8.4 - 10.2 MG/DL) 8.7 Laboratory Tests 04/06 0504 Hematology WBC (3.8 - 9.8 K/MM3) 6.6 RBC (3.95 - 5.67 M/MM3) 3.34 L Hgb (12.4 - 16.7 G/DL) 10.5 L Hct (35.9 - 49.5 %) 30.5 L MCV (81.7 - 96.1 fL) 91 MCH (27.6 - 33.2 pg) 31.4 MCHC (32.9 - 35.5 %) 34.4 RDW (12.1 - 15.2 %) 13.1 Plt Count (129 - 368 K/MM3) 200 MPV (7.4 - 10.4 fl) 9.1 Neut % (Auto) (43 - 75 %) 58.6 Lymph % (Auto) (14 - 44 %) 16.5 [place] % (Auto) (4 - 13 %) 17.6 H Eos % (Auto) (0 - 6 %) 3.2 Baso % (Auto) (0 - 2 %) 0.8 Neut # (Auto) (2.0 - 7.6 K/mm3) 3.87 Lymph # (Auto) (1.0 - 3.8 K/mm3) 1.09 [place] # (Auto) (0.1 - 0.8 K/mm3) 1.16 H Eos # (Auto) (0.0 - 0.2 K/mm3) 0.21 H Baso # (Auto) (0.0 - 0.2 K/mm3) 0.05 Immature Gran % (0.0 - 2.0 %) 3.3 H Nucleated RBC % (0 - 1.0 %) 0.0 Nucleated RBCs # (Man) (0.0 - 0.1 K/mm3) 0.00 Results: labs reviewed, vital signs stable, current med profile rev'd Quality Current Medications Current medication review: I attest that the foregoing medication list in the medical record is true, accurate, and complete to the best of my knowledge. Advanced Care Plan 65 or Older Discussed with: patient Discussion included: code status (full code) BMI Screening > 25 or < 18.5 Patient's BMI: Current BMI: 28.6 BMI status/follow-up: abnl BMI, pt to F/U w/PCP (to discuss diet exercise) at 1244 RPT #:[id number] END OF REPORT [facility] 2019-04-06 06:14:00 [facility] Cardiology Progress Note REPORT#:[id number] REPORT STATUS: Signed DATE:04/06/19 TIME: 613 PATIENT: LEATHA CORONEL UNIT #: [id number] ROOM/BED: [address] : [birth year] AGE: 68 SEX: M ATTEND: Zaid Nazario MD ADM AUTHOR: Mcihel Younger MD * ALL edits or amendments must be made on the electronic/computer document * Subjective Chief Complaint: CP, S/P Aortocoronary artery bypass times 4 GILBERT-LAD, SVG-Dx, OM and PDA Patient reports: No: chest pain, palpitations, shortness of breath. Objective General VS/I O: 24 hour I O ending at 0700: 04/06 0700 04/05 1900 Intake Total 75 Output Total Balance 75 Intake, Oral 75 Vital Signs: Date Time Temp Pulse Resp B/P B/P Pulse O2 O2 Flow FiO2 Mean Ox Delivery Rate 04/06 0443 98.4 98 18 123/67 85.5 97 Room air 04/05 2310 98.2 91 18 130/79 96.3 96 Room air 04/05 2017 100 16 149/85 106.4 99 Room air 04/05 1940 98.8 97 18 149/71 97.0 98 Room air 04/05 1914 87 149/71 97.0 98 04/05 1844 91 144/83 103.6 98 04/05 1814 98 133/74 93.5 100 04/05 1744 98 78 04/05 1744 101 141/86 104.4 100 04/05 1731 98.2 98 16 155/80 104.7 100 04/05 1109 98.1 90 20 118/80 92.5 98 Room air 04/05 0811 98.1 102 20 134/80 98.0 100 Room air Patient Weight Weight (lb): 217 Weight (oz): 7.07 Weight (kg): 98.43 Medications: Active Meds + DC'd Last 24 Hrs Lisinopril 20 MG Q12HR PO Famotidine 20 MG BID PO Lactulose 20 GM BID PO Mupirocin 1 APPLIC BID NASAL (DC) Docusate Sodium 100 MG BID PRN PRN PO Tramadol HCl 50 MG Q8H PRN PRN PO Aspirin 81 MG DAILY PO Clopidogrel Bisulfate 75 MG DAILY PO Metoprolol Tartrate 25 MG Q12HR PO Atorvastatin Calcium 10 MG BEDTIME PO Dextrose/Water 12.5 GM ASDIR PRN IV Dextrose/Water 25 GM ASDIR PRN IV Acetaminophen 650 MG Q4H PRN PRN PO Hydrocodone Bitart/Acetaminophen 1 TAB Q4H PRN PRN PO Hydrocodone Bitart/Acetaminophen 2 TAB Q4H PRN PRN PO Meperidine HCl 25 MG Q6H PRN PRN IM Meperidine HCl 50 MG Q6H PRN PRN IM Ondansetron HCl 4 MG Q8H PRN PRN IV Status post: Aortocoronary artery bypass times 4 GILBERT-LAD, SVG-Dx, OM and PDA Physical Exam General appearance: alert, awake, oriented Head/Eyes: atraumatic, normocephalic, PERRLA ENT: moist mucosal membranes Neck: full range of motion, no bruit/NL carotids, no JVD Cardiovascular: CV assessment: rub, regular rate and rhythm, BP pulses = bilaterally Murmur assessment: II/ SHANE, and DEM Respiratory: decreased breath sounds, on oxygen, clear to auscultation, no distress Abdomen: soft, non-tender, no pulsatile mass Lower extremity: LE assessment: edema, normal capillary refill, normal temperature Musculoskeletal: full range of motion Neuro/DISASTER RECOVERY SPECIALIST: alert, oriented X 3, CN II-XII intact, no motor deficits Wound/incision: Location: Chest Site condition: dressing clean dry Psychiatry: normal affect, normal judgment/insight, normal mood, no hallucinations Results Findings/Data: Laboratory Tests 04/06 0504 Hematology WBC (3.8 - 9.8 K/MM3) 6.6 RBC (3.95 - 5.67 M/MM3) 3.34 L Hgb (12.4 - 16.7 G/DL) 10.5 L Hct (35.9 - 49.5 %) 30.5 L MCV (81.7 - 96.1 fL) 91 MCH (27.6 - 33.2 pg) 31.4 MCHC (32.9 - 35.5 %) 34.4 RDW (12.1 - 15.2 %) 13.1 Plt Count (129 - 368 K/MM3) 200 MPV (7.4 - 10.4 fl) 9.1 Neut % (Auto) (43 - 75 %) 58.6 Lymph % (Auto) (14 - 44 %) 16.5 [place] % (Auto) (4 - 13 %) 17.6 H Eos % (Auto) (0 - 6 %) 3.2 Baso % (Auto) (0 - 2 %) 0.8 Neut # (Auto) (2.0 - 7.6 K/mm3) 3.87 Lymph # (Auto) (1.0 - 3.8 K/mm3) 1.09 [place] # (Auto) (0.1 - 0.8 K/mm3) 1.16 H Eos # (Auto) (0.0 - 0.2 K/mm3) 0.21 H Baso # (Auto) (0.0 - 0.2 K/mm3) 0.05 Immature Gran % (0.0 - 2.0 %) 3.3 H Nucleated RBC % (0 - 1.0 %) 0.0 Nucleated RBCs # (Man) (0.0 - 0.1 K/mm3) 0.00 Diagnosis, Assessment Plan Free Text DxA P Notes Free Text DxA P Notes: IMPRESSION: 1. Severe CAD, S/P Aortocoronary artery bypass times 4, GILBERT-LAD, SVG-Dx, OM and PDA, 2/21/20 2. HTN 3. 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 AI 6. COD 7. TAA 8. PVC's 9. COPD 10. Post-op ST elevation, likely pericarditis PLAN: 1. Continue cardiac medications 2. Ambulate 3. IS 4. PT/OT at 1658 RPT #:[id number] END OF REPORT [facility] 2019-04-05 18:21:00 [facility] Cardiology Progress Note REPORT#:[id number] REPORT STATUS: Signed DATE:04/05/19 TIME: 1820 PATIENT: LEATHA CORONEL UNIT #: [id number] ROOM/BED: [address] : 52 AGE: 68 SEX: M ATTEND: Zadi Nazario MD ADM AUTHOR: Michel Younger MD * ALL edits or amendments must be made on the electronic/computer document * Subjective Chief Complaint: CP, S/P Aortocoronary artery bypass times 4 GILBERT-LAD, SVG-Dx, OM and PDA Patient reports: No: chest pain, palpitations, shortness of breath. Objective General VS/I O: 24 hour I O ending at 0700: 04/05 0700 04/04 1900 Intake Total 350 870.00 Output Total 40 Balance 350 830.00 Intake, IV 150.00 Intake, Oral 350 720 Number Voids 4 4 Output, Chest 40 Tube Drainage Vital Signs: Date Time Temp Pulse Resp B/P B/P Pulse O2 O2 Flow FiO2 Mean Ox Delivery Rate 04/05 1814 98 133/74 93.5 100 04/05 1744 98 78 04/05 1744 101 141/86 104.4 100 04/05 1731 98.2 98 16 155/80 104.7 100 04/05 1109 98.1 90 20 118/80 92.5 98 Room air 04/05 0811 98.1 102 20 134/80 98.0 100 Room air 04/05 0330 99.5 98 18 129/81 96.9 96 Room air 04/04 2350 97.3 93 18 119/69 86.0 96 Room air 04/04 1910 98.6 73 18 148/83 104.7 99 Room air Patient Weight Weight (lb): 217 Weight (oz): 7.07 Weight (kg): 98.43 Medications: Active Meds + DC'd Last 24 Hrs Amlodipine Besylate 5 MG DAILY PO (CAN) Lisinopril 20 MG Q12HR PO Famotidine 20 MG BID PO Lactulose 20 GM BID PO Mupirocin 1 APPLIC BID NASAL (DC) Docusate Sodium 100 MG BID PRN PRN PO Tramadol HCl 50 MG Q8H PRN PRN PO Aspirin 81 MG DAILY PO Clopidogrel Bisulfate 75 MG DAILY PO Metoprolol Tartrate 25 MG Q12HR PO Atorvastatin Calcium 10 MG BEDTIME PO Dextrose/Water 12.5 GM ASDIR PRN IV Dextrose/Water 25 GM ASDIR PRN IV Acetaminophen 650 MG Q4H PRN PRN PO Hydrocodone Bitart/Acetaminophen 1 TAB Q4H PRN PRN PO Hydrocodone Bitart/Acetaminophen 2 TAB Q4H PRN PRN PO Meperidine HCl 25 MG Q6H PRN PRN IM Meperidine HCl 50 MG Q6H PRN PRN IM Ondansetron HCl 4 MG Q8H PRN PRN IV Status post: Aortocoronary artery bypass times 4 GILBERT-LAD, SVG-Dx, OM and PDA Physical Exam General appearance: alert, awake, oriented Head/Eyes: atraumatic, normocephalic, PERRLA ENT: moist mucosal membranes Neck: full range of motion, no bruit/NL carotids, no JVD Cardiovascular: CV assessment: rub, regular rate and rhythm, BP pulses = bilaterally Murmur assessment: II/ SHANE, and DEM Respiratory: decreased breath sounds, on oxygen, clear to auscultation, no distress Abdomen: soft, non-tender, no pulsatile mass Lower extremity: LE assessment: edema, normal capillary refill, normal temperature Musculoskeletal: full range of motion Neuro/DISASTER RECOVERY SPECIALIST: alert, oriented X 3, CN II-XII intact, no motor deficits Wound/incision: Location: Chest Site condition: dressing clean dry Psychiatry: normal affect, normal judgment/insight, normal mood, no hallucinations Results Findings/Data: Laboratory Tests 04/052 Chemistry Sodium (137 - 145 MMOL/L) 132 L Potassium (3.5 - 5.1 MMOL/L) 3.7 Chloride (98 - 107 MMOL/L) 101 Carbon Dioxide (22 - 30 MMOL/L) 23 BUN (9 - 20 MG/DL) 15 Creatinine (0.66 - 1.25 MG/DL) 0.80 Glomerular Filtr Rate > 60 Glucose (74 - 106 MG/DL) 104 Calcium (8.4 - 10.2 MG/DL) 8.8 Magnesium (1.6 - 2.3 MG/DL) 1.9 Laboratory Tests 04/05 451 Hematology WBC (3.8 - 9.8 K/MM3) 6.9 RBC (3.95 - 5.67 M/MM3) 3.29 L Hgb (12.4 - 16.7 G/DL) 10.3 L Hct (35.9 - 49.5 %) 30.2 L MCV (81.7 - 96.1 fL) 92 MCH (27.6 - 33.2 pg) 31.3 MCHC (32.9 - 35.5 %) 34.1 RDW (12.1 - 15.2 %) 13.4 Plt Count (129 - 368 K/MM3) 179 MPV (7.4 - 10.4 fl) 9.0 Neut % (Auto) (43 - 75 %) 60.8 Lymph % (Auto) (14 - 44 %) 19.2 [place] % (Auto) (4 - 13 %) 15.1 H Eos % (Auto) (0 - 6 %) 3.3 Baso % (Auto) (0 - 2 %) 0.7 Neut # (Auto) (2.0 - 7.6 K/mm3) 4.17 Lymph # (Auto) (1.0 - 3.8 K/mm3) 1.32 [place] # (Auto) (0.1 - 0.8 K/mm3) 1.04 H Eos # (Auto) (0.0 - 0.2 K/mm3) 0.23 H Baso # (Auto) (0.0 - 0.2 K/mm3) 0.05 Immature Gran % (0.0 - 2.0 %) 0.9 Nucleated RBC % (0 - 1.0 %) 0.0 Nucleated RBCs # (Man) (0.0 - 0.1 K/mm3) 0.00 Laboratory Tests 04/05 451 Chemistry Magnesium (1.6 - 2.3 MG/DL) 1.9 Diagnosis, Assessment Plan Free Text DxA P Notes Free Text DxA P Notes: IMPRESSION: 1. Severe CAD, S/P Aortocoronary artery bypass times 4, GILBERT-LAD, SVG-Dx, OM and PDA, 04/01/19 2. HTN 3. 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 AI 6. COD 7. TAA 8. PVC's 9. COPD 10. Post-op ST elevation, likely pericarditis PLAN: 1. Continue cardiac medications 2. Ambulate 3. IS 4. PT/OT at 1823 RPT #:[id number] END OF REPORT [facility] 2019-04-05 17:50:00 [facility] Hospitalist Progress Note REPORT#:[id number] REPORT STATUS: Signed DATE:04/05/19 TIME: 1750 PATIENT: LEATHA CORONEL UNIT #: [id number] ROOM/BED: [address] : [birth year] AGE: 68 SEX: M ATTEND: Zaid Nazario MD ADM AUTHOR: Zaid Nazario MD * ALL edits or amendments must be made on the electronic/computer document * Subjective Chief Complaint: s/p CABG x4 day 5. Pt is doing well and is ambulating without any issues. Pt reports a reduced appetite and attributes it to disliking the hospital food. He also mentions the SCDs were uncomfortable, especially the right extremity due to some previous injury. Review of Systems Constitutional: Reports: other (reduced appetite). Denies: fatigue, generalized weakness. Musculoskeletal: Reports: extremity pain (attributed to the SCDs). Denies: arthritis, extremity swelling, joint pain. All systems rev neg: except as marked Objective General VS/I O: Vital Signs: Date Time Temp Pulse Resp B/P B/P Pulse O2 O2 Flow FiO2 Mean Ox Delivery Rate 04/05 1731 98.2 98 16 155/80 104.7 100 04/05 1109 98.1 90 20 118/80 92.5 98 Room air 04/05 0811 98.1 102 20 134/80 98.0 100 Room air 04/05 0330 99.5 98 18 129/81 96.9 96 Room air 04/04 2350 97.3 93 18 119/69 86.0 96 Room air 04/04 1911 98.6 73 18 148/83 104.7 99 Room air 24 hour I O ending at 0700: 04/05 0700 04/04 1900 Intake Total 350 870.00 Output Total 40 Balance 350 830.00 Intake, IV 150.00 Intake, Oral 350 720 Number Voids 4 4 Output, Chest 40 Tube Drainage Patient Weight Weight (lb): 217 Weight (oz): 7.07 Weight (kg): 98.43 Medications: Active Meds + DC'd Last 24 Hrs Amlodipine Besylate 5 MG DAILY PO (CAN) Lisinopril 20 MG Q12HR PO Famotidine 20 MG BID PO Lactulose 20 GM BID PO Mupirocin 1 APPLIC BID NASAL (DC) Docusate Sodium 100 MG BID PRN PRN PO Tramadol HCl 50 MG Q8H PRN PRN PO Aspirin 81 MG DAILY PO Clopidogrel Bisulfate 75 MG DAILY PO Metoprolol Tartrate 25 MG Q12HR PO Atorvastatin Calcium 10 MG BEDTIME PO Dextrose/Water 12.5 GM ASDIR PRN IV Dextrose/Water 25 GM ASDIR PRN IV Acetaminophen 650 MG Q4H PRN PRN PO Hydrocodone Bitart/Acetaminophen 1 TAB Q4H PRN PRN PO Hydrocodone Bitart/Acetaminophen 2 TAB Q4H PRN PRN PO Meperidine HCl 25 MG Q6H PRN PRN IM Meperidine HCl 50 MG Q6H PRN PRN IM Ondansetron HCl 4 MG Q8H PRN PRN IV Physical Exam General appearance: alert, awake, oriented, no acute distress Head/Eyes: atraumatic, clear cornea, EOMI, PERRL ENT: moist mucosal membranes, normal dentition, normal pharynx Neck: full range of motion, non-tender, no masses or swelling Cardiovascular: normal capillary refill, normal heart sounds, regular rate rhythm Respiratory: aerating well, clear to auscultation, symmetric expansion, no distress Abdomen: non-tender, soft, no distention, no guarding Genitourinary: no flank pain, no wiggins Rectal: not indicated Extremities: moves all, no edema Musculoskeletal: normal inspection, painless range of motion, no muscle spasm Neuro/DISASTER RECOVERY SPECIALIST: alert, oriented X 3, normal speech, no motor deficits, no sensory deficits Skin: dry, normal color, no rash Psychiatry: normal affect, normal judgment/insight, normal mood Results Findings/Data: Laboratory Tests 04/05 451 Chemistry Sodium (137 - 145 MMOL/L) 132 L Potassium (3.5 - 5.1 MMOL/L) 3.7 Chloride (98 - 107 MMOL/L) 101 Carbon Dioxide (22 - 30 MMOL/L) 23 BUN (9 - 20 MG/DL) 15 Creatinine (0.66 - 1.25 MG/DL) 0.80 Glomerular Filtr Rate > 60 Glucose (74 - 106 MG/DL) 104 Calcium (8.4 - 10.2 MG/DL) 8.8 Magnesium (1.6 - 2.3 MG/DL) 1.9 Laboratory Tests 04/05 451 Hematology WBC (3.8 - 9.8 K/MM3) 6.9 RBC (3.95 - 5.67 M/MM3) 3.29 L Hgb (12.4 - 16.7 G/DL) 10.3 L Hct (35.9 - 49.5 %) 30.2 L MCV (81.7 - 96.1 fL) 92 MCH (27.6 - 33.2 pg) 31.3 MCHC (32.9 - 35.5 %) 34.1 RDW (12.1 - 15.2 %) 13.4 Plt Count (129 - 368 K/MM3) 179 MPV (7.4 - 10.4 fl) 9.0 Neut % (Auto) (43 - 75 %) 60.8 Lymph % (Auto) (14 - 44 %) 19.2 [place] % (Auto) (4 - 13 %) 15.1 H Eos % (Auto) (0 - 6 %) 3.3 Baso % (Auto) (0 - 2 %) 0.7 Neut # (Auto) (2.0 - 7.6 K/mm3) 4.17 Lymph # (Auto) (1.0 - 3.8 K/mm3) 1.32 [place] # (Auto) (0.1 - 0.8 K/mm3) 1.04 H Eos # (Auto) (0.0 - 0.2 K/mm3) 0.23 H Baso # (Auto) (0.0 - 0.2 K/mm3) 0.05 Immature Gran % (0.0 - 2.0 %) 0.9 Nucleated RBC % (0 - 1.0 %) 0.0 Nucleated RBCs # (Man) (0.0 - 0.1 K/mm3) 0.00 Results: labs reviewed, vital signs stable, current med profile rev'd Diagnosis, Assessment Plan Free Text DxA P Notes Free Text DxA P Notes: Assessment: - CAD, s/p CABGx4 day 5 - EUVOLEMIC HYPONATREMIA, 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 - HTN - DM Plan: 04/02 Patient was seen at bedside. He reports he is sore from his surgery. He states that he has medication for his allergies he would like to take, which I will agree to and make note of in his chart. He also reports that he is constipated and would like an option for medication relief if necessary. Patient reports he would like to further discuss his BP medications before discharge. - start valsartan - lactulose as needed - start loratidine at bedtime, or his personal allergy medication - pain management - tramadol - NC 5L - cont management as per Dr. Lazar and Dr. Connor 04/03 Patient was seen at bedside. He states he did well with PT and was able to walk without SOB. He reports that he did not sleep well last night, max 1 hour. He reports constipation, but refused his lactulose according to his nurse. Patient reports he would like to further discuss his BP medications before discharge with his goal to minimize medications with ED side effects. Patient would like to change his zyrtec to 2x daily, but I will withhold as this will further elevate his BP. - cont zyrtec once daily, adjust if necessary and BP controlled - D/C valsartan; start lisinopril - lactulose as needed - pain management - tramadol - NC 5L - cont management as per Dr. Lazar and Dr. Connor 04/03 Patient was seen at bedside. He is being tranferred out of SICU to [facility]. Patient reports that he feels better and has been able to walk the halls. He is persistent about getting off his BB due to ED. I will start with decreasing the amlodipine. Lisinopril working well for BP, sys consistenly <140. - decrease amlodipine to 5mg - cont zyrtec once daily, adjust if necessary and BP controlled - lactulose as needed - pain management - tramadol - saturating well on RA 97% - cont management as per Dr. Lazar and Dr. Connor 04/05/2019: - Pt is doing well on his current treatments. - monitor electrolytes. - continue other treatments. - Continue management as per Dr. Lazar and Dr. Connor. - Anticipate removal of pacer wires today and discharge in A.M. Quality Current Medications Current medication review: I attest that the foregoing medication list in the medical record is true, accurate, and complete to the best of my knowledge. Advanced Care Plan 65 or Older Discussed with: patient Discussion included: code status (full code) BMI Screening > 25 or < 18.5 Patient's BMI: Current BMI: 28.6 BMI status/follow-up: abnl BMI, pt to F/U w/PCP (to discuss diet exercise) at 2108 RPT #:[id number] END OF REPORT [facility] 2019-04-04 16:35:00 [facility] ([facility] Hospitalist Progress Note REPORT#:[id number] REPORT STATUS: Signed DATE:04/04/19 TIME: 1635 PATIENT: LEATHA CORONEL UNIT #: [id number] ROOM/BED: [address] : 52 AGE: 68 SEX: M ATTEND: Marie Thibodeaux MD ADM AUTHOR: Marie Thibodeaux MD * ALL edits or amendments must be made on the electronic/computer document * Subjective Chief Complaint: s/p CABG x4 day 4, transfer to [facility] Review of Systems Constitutional: Denies: chills, fatigue, fever, generalized weakness. Skin: Denies: abrasion, bruising, contusion. Allergy/Immun: Reports: rhinorrhea. Eyes: Denies: diplopia, eye pain, photophobia. ENT: Reports: nasal congestion, sore throat. Denies: throat pain, throat swelling. Respiratory: Denies: GONZALES (dyspnea on exertion), productive cough (sputum), SOB. Cardiovascular: Denies: chest pain, GONZALES (dyspnea on exertion), palpitations. GI: Reports: constipation. Denies: diarrhea, nausea, vomiting. : Denies: dysuria, flank pain, frequency. Musculoskeletal: Denies: arthritis, extremity pain, extremity swelling. Neuro: Denies: confusion, dizziness, headache, lightheaded. Psych: Denies: anxiety, confusion, depression, insomnia. Objective General VS/I O: Vital Signs: Date Time Temp Pulse Resp B/P B/P Pulse O2 O2 Flow FiO2 Mean Ox Delivery Rate 04/04 1530 98.1 106 16 143/69 93.7 97 04/04 1512 139/76 101 04/04 1400 99 18 134/72 98 98 04/04 1300 91 15 131/84 100 100 04/04 1211 98.1 84 18 96 Room air 04/04 1200 86 17 128/75 95 96 04/04 1100 85 24 119/68 89 97 04/04 1000 91 23 129/72 95 97 04/04 0900 95 118/69 88 97 04/04 0800 95 17 123/72 90 04/04 0718 98.1 95 18 98 Room air 04/04 0700 94 15 112/72 87 04/04 0658 100 Room air 21 04/04 0600 94 14 127/79 94 98 04/04 0500 93 144/86 108 95 04/04 0400 99.0 04/04 0400 90 16 136/75 100 95 04/04 0300 82 12 129/77 96 97 04/04 0200 81 13 129/71 92 97 04/04 0100 88 14 127/68 88 98 04/04 0000 98.8 04/04 0000 89 14 143/76 102 100 04/03 2300 92 13 141/78 104 100 04/03 2200 99 14 135/74 98 100 04/03 2127 105 18 147/77 106 100 04/03 2100 106 20 100 04/03 2030 99 15 96 04/03 1999 99.0 04/03 1999 Nasal 2 cannula 04/03 1999 98 17 96 04/03 1930 102 16 97 04/03 1900 105 15 96 04/03 1845 106 18 97 04/03 1841 99.1 107 21 96 Room air 04/03 1815 94 04/03 1800 94 16 96 04/03 1745 90 96 04/03 1728 101 96 04/03 1700 98 16 96 04/03 1648 100.2 104 22 98 Room air 04/03 1645 100 97 24 hour I O ending at 0700: 04/04 0700 04/03 1900 Intake Total 500 730 Output Total 80 830 Balance 420 -100 Intake, Oral 500 730 Number Voids 2 Output, Chest 80 80 Tube Drainage Output, Urine 750 Patient Weight Weight (lb): 217 Weight (oz): 7.07 Weight (kg): 98.43 Medications: Active Meds + DC'd Last 24 Hrs Amlodipine Besylate 5 MG DAILY PO Lisinopril 20 MG Q12HR PO Amlodipine Besylate 10 MG DAILY PO (DC) Famotidine 20 MG BID PO Lactulose 20 GM BID PO Mupirocin 1 APPLIC BID NASAL Patient Own Medication 0.5 EA BEDTIME PO (DC) Docusate Sodium 100 MG BID PRN PRN PO Tramadol HCl 50 MG Q8H PRN PRN PO Aspirin 81 MG DAILY PO Clopidogrel Bisulfate 75 MG DAILY PO Metoprolol Tartrate 25 MG Q12HR PO Atorvastatin Calcium 10 MG BEDTIME PO Dextrose/Water 12.5 GM ASDIR PRN IV Dextrose/Water 25 GM ASDIR PRN IV Acetaminophen 650 MG Q4H PRN PRN PO Acetaminophen 650 MG Q4H PRN PRN RECTAL (DC) Albumin Human 250 ML ASDIR PRN IV (DC) Calcium Gluconate 1,000 MG ASDIR PRN IV (DC) Sodium Chloride 100 ML Dobutamine HCl/Dextrose 250 ML ASDIR PRN IV (DC) Epinephrine 250 ML ASDIR PRN IV (DC) Hydrocodone Bitart/Acetaminophen 1 TAB Q4H PRN PRN PO Hydrocodone Bitart/Acetaminophen 2 TAB Q4H PRN PRN PO Insulin Human Regular 100 UNIT ASDIR IV (DC) Sodium Chloride 99 ML Lidocaine HCl/Dextrose 500 ML ASDIR PRN IV (DC) Magnesium Sulfate 50 ML ASDIR PRN IV (DC) Magnesium Sulfate/Dextrose 100 ML ASDIR PRN IV (DC) Meperidine HCl 25 MG Q6H PRN PRN IM Meperidine HCl 50 MG Q6H PRN PRN IM Morphine Sulfate 2 MG Q15M PRN PRN IV (DC) Nicardipine HCl 25 MG ASDIR PRN IV (DC) Sodium Chloride 250 ML Ondansetron HCl 4 MG Q8H PRN PRN IV Potassium Chloride 50 ML ASDIR PRN IV (DC) Nicardipine HCl 25 MG ASDIR IV (DC) Sodium Chloride 250 ML Physical Exam General appearance: alert, awake, oriented, conversational Head/Eyes: atraumatic, clear cornea, PERRLA ENT: moist mucosal membranes, normal dentition Neck: full range of motion, non-tender Cardiovascular: normal capillary refill, normal heart sounds, regular rate rhythm Respiratory: aerating well, clear to auscultation Abdomen: non-tender, soft Genitourinary: no wiggins Rectal: not indicated Musculoskeletal: normal inspection Neuro/DISASTER RECOVERY SPECIALIST: alert, oriented X 3, normal speech Skin: dry, intact Psychiatry: normal affect, normal judgment/insight, normal mood Results Findings/Data: Laboratory Tests 04/04 0345 Chemistry Sodium (137 - 145 MMOL/L) 132 L Potassium (3.5 - 5.1 MMOL/L) 3.9 Chloride (98 - 107 MMOL/L) 100 Carbon Dioxide (22 - 30 MMOL/L) 24 Anion Gap (14 - 24 MMOL/L) 12 L BUN (9 - 20 MG/DL) 16 Creatinine (0.66 - 1.25 MG/DL) 0.70 Glomerular Filtr Rate > 60 Glucose (74 - 106 MG/DL) 107 H Calcium (8.4 - 10.2 MG/DL) 8.8 Magnesium (1.6 - 2.3 MG/DL) 1.9 Laboratory Tests 04/04 0345 Hematology WBC (3.8 - 9.8 K/MM3) 8.7 RBC (3.95 - 5.67 M/MM3) 3.12 L Hgb (12.4 - 16.7 G/DL) 9.9 L Hct (35.9 - 49.5 %) 29.7 L MCV (81.7 - 96.1 fL) 95 MCH (27.6 - 33.2 pg) 31.7 MCHC (32.9 - 35.5 %) 33.3 RDW (12.1 - 15.2 %) 13.5 Plt Count (129 - 368 K/MM3) 163 MPV (7.4 - 10.4 fl) 9.0 Neut % (Auto) (43 - 75 %) 66.1 Lymph % (Auto) (14 - 44 %) 16.6 [place] % (Auto) (4 - 13 %) 14.2 H Eos % (Auto) (0 - 6 %) 2.3 Baso % (Auto) (0 - 2 %) 0.5 Neut # (Auto) (2.0 - 7.6 K/mm3) 5.75 Lymph # (Auto) (1.0 - 3.8 K/mm3) 1.45 [place] # (Auto) (0.1 - 0.8 K/mm3) 1.24 H Eos # (Auto) (0.0 - 0.2 K/mm3) 0.20 Baso # (Auto) (0.0 - 0.2 K/mm3) 0.04 Immature Gran % (0.0 - 2.0 %) 0.3 Nucleated RBC % (0 - 1.0 %) 0.0 Nucleated RBCs # (Man) (0.0 - 0.1 K/mm3) 0.00 Diagnosis, Assessment Plan Free Text DxA P Notes Free Text DxA P Notes: Assessment: - s/p CABGx4 day 4 - CAD - seasonal allergies has Zyrtec w pseudoephedrine - constipation - difficulty sleeping - HTN on 3 meds, wants to be taken off BB due to ED - DM Plan: 04/02 Patient was seen at bedside. He reports he is sore from his surgery. He states that he has medication for his allergies he would like to take, which I will agree to and make note of in his chart. He also reports that he is constipated and would like an option for medication relief if necessary. Patient reports he would like to further discuss his BP medications before discharge. - start valsartan - lactulose as needed - start loratidine at bedtime, or his personal allergy medication - pain management - tramadol - NC 5L - cont management as per Dr. Lazar and Dr. Connor 04/03 Patient was seen at bedside. He states he did well with PT and was able to walk without SOB. He reports that he did not sleep well last night, max 1 hour. He reports constipation, but refused his lactulose according to his nurse. Patient reports he would like to further discuss his BP medications before discharge with his goal to minimize medications with ED side effects. Patient would like to change his zyrtec to 2x daily, but I will withhold as this will further elevate his BP. - cont zyrtec once daily, adjust if necessary and BP controlled - D/C valsartan; start lisinopril - lactulose as needed - pain management - tramadol - NC 5L - cont management as per Dr. Lazar and Dr. Connor 04/03 Patient was seen at bedside. He is being tranferred out of SICU to [facility]. Patient reports that he feels better and has been able to walk the halls. He is persistent about getting off his BB due to ED. I will start with decreasing the amlodipine. Lisinopril working well for BP, sys consistenly <140. - decrease amlodipine to 5mg - cont zyrtec once daily, adjust if necessary and BP controlled - lactulose as needed - pain management - tramadol - saturating well on RA 97% - cont management as per Dr. Lazar and Dr. Connor Quality Advanced Care Plan 65 or Older Discussed with: patient Discussion included: code status at 1837 RPT #:[id number] END OF REPORT [facility] 2019-04-04 07:44:00 [facility] ([facility] Cardiology Progress Note REPORT#:[id number] REPORT STATUS: Signed DATE:04/04/19 TIME: 07 PATIENT: LEATHA CORONEL UNIT #: [id number] ROOM/BED: [address] : 52 AGE: 68 SEX: M ATTEND: Marie Thibodeaux MD ADM AUTHOR: Michel Younger MD * ALL edits or amendments must be made on the electronic/computer document * Subjective Chief Complaint: CP, S/P Aortocoronary artery bypass times 4 GILBERT-LAD, SVG-Dx, OM and PDA Patient reports: No: palpitations, shortness of breath. Objective General VS/I O: 24 hour I O ending at 0700: 04/04 0700 04/03 1900 Intake Total 500 730 Output Total 830 Balance 500 -100 Intake, Oral 500 730 Number Voids 2 Output, Chest 80 Tube Drainage Output, Urine 750 Vital Signs: Date Time Temp Pulse Resp B/P B/P Pulse O2 O2 Flow FiO2 Mean Ox Delivery Rate 04/04 0718 98.1 95 18 98 Room air 04/04 0700 94 15 112/72 87 04/04 0658 100 Room air 21 04/04 0600 94 14 127/79 94 98 04/04 0500 93 144/86 108 95 04/04 0400 99.0 04/04 0400 90 16 136/75 100 95 04/04 0300 82 12 129/77 96 97 04/04 0200 81 13 129/71 92 97 04/04 0100 88 14 127/68 88 98 04/04 0000 98.8 04/04 0000 89 14 143/76 102 100 04/03 2300 92 13 141/78 104 100 04/03 2200 99 14 135/74 98 100 04/03 2127 105 18 147/77 106 100 04/03 2100 106 20 100 04/03 2030 99 15 96 04/03 1999 99.0 04/03 1999 Nasal 2 cannula 04/03 1999 98 17 96 04/03 1930 102 16 97 04/03 1900 105 15 96 04/03 1845 106 18 97 04/03 1841 99.1 107 21 96 Room air 04/03 1815 94 04/03 1800 94 16 96 04/03 1745 90 96 04/03 1728 101 96 04/03 1700 98 16 96 04/03 1648 100.2 104 22 98 Room air 04/03 1645 100 97 04/03 1630 103 96 04/03 1600 101 25 99 04/03 1545 100 20 99 04/03 1535 99.2 98 17 99 Nasal [id number] cannula 04/03 1530 101 100 04/03 1515 100 99 04/03 1500 100 16 99 04/03 1430 100 20 99 04/03 1415 100 16 99 04/03 1400 100 19 99 04/03 1345 99 99 04/03 1330 96 19 99 04/03 1315 93 17 99 04/03 1314 93 20 97 04/03 1300 91 17 99 04/03 1245 92 18 99 04/03 1230 94 18 98 04/03 1215 98 25 97 04/03 1130 93 15 98 04/03 1115 87 15 99 04/03 1100 92 17 99 04/03 1045 93 18 99 04/03 1030 88 15 100 04/03 1015 87 15 99 04/03 1000 93 18 99 04/03 0945 102 19 98 04/03 0930 107 24 98 04/03 0915 106 97 04/03 0900 97 15 100 04/03 0845 98 100 04/03 0830 99 18 100 04/03 0800 98 18 99 04/03 0745 95 15 100 Patient Weight Weight (lb): 217 Weight (oz): 7.07 Weight (kg): 98.43 Medications: Active Meds + DC'd Last 24 Hrs Lisinopril 20 MG Q12HR PO Amlodipine Besylate 10 MG DAILY PO Famotidine 20 MG BID PO Patient Own Medication 0.5 EA DAILY PO (DC) Patient Own Medication 0.5 EA DAILY PO (DC) Lactulose 20 GM BID PO Mupirocin 1 APPLIC BID NASAL Patient Own Medication 0.5 EA BEDTIME PO Docusate Sodium 100 MG BID PRN PRN PO Tramadol HCl 50 MG Q8H PRN PRN PO Valsartan 320 MG DAILY PO (DC) Aspirin 81 MG DAILY PO Clopidogrel Bisulfate 75 MG DAILY PO Metoprolol Tartrate 25 MG Q12HR PO Atorvastatin Calcium 10 MG BEDTIME PO Mupirocin 1 APPLIC BID NASAL (DC) Cefuroxime Sodium 1,500 MG Q8H IV (DC) Sodium Chloride 20 ML Q8H IV (DC) Dextrose/Water 12.5 GM ASDIR PRN IV Dextrose/Water 25 GM ASDIR PRN IV Insulin Human Regular 100 UNIT ASDIR IV (DC) Sodium Chloride 99 ML Acetaminophen 650 MG Q4H PRN PRN PO Acetaminophen 650 MG Q4H PRN PRN RECTAL Albumin Human 250 ML ASDIR PRN IV Calcium Gluconate 1,000 MG ASDIR PRN IV Sodium Chloride 100 ML Dextrose/Water 12.5 GM ASDIR PRN IV (CAN) Dextrose/Water 25 GM ASDIR PRN IV (CAN) Dobutamine HCl/Dextrose 250 ML ASDIR PRN IV Epinephrine 250 ML ASDIR PRN IV Hydrocodone Bitart/Acetaminophen 1 TAB Q4H PRN PRN PO Hydrocodone Bitart/Acetaminophen 2 TAB Q4H PRN PRN PO Insulin Human Regular 100 UNIT ASDIR IV (CKD) Sodium Chloride 99 ML Lidocaine HCl/Dextrose 500 ML ASDIR PRN IV (CKD) Magnesium Sulfate 50 ML ASDIR PRN IV Magnesium Sulfate/Dextrose 100 ML ASDIR PRN IV Meperidine HCl 25 MG Q6H PRN PRN IM Meperidine HCl 50 MG Q6H PRN PRN IM Morphine Sulfate 2 MG Q15M PRN PRN IV Nicardipine HCl 25 MG ASDIR PRN IV Sodium Chloride 250 ML Ondansetron HCl 4 MG Q8H PRN PRN IV Potassium Chloride 50 ML ASDIR PRN IV Potassium Chloride/Dextrose/Sod Cl 1,000 ML .[id number] IV (DC) Nicardipine HCl 25 MG ASDIR IV Sodium Chloride 250 ML Dextrose/Water 12.5 GM ASDIR PRN IV (CAN) Dextrose/Water 25 GM ASDIR PRN IV (CAN) Physical Exam General appearance: alert, awake, oriented Head/Eyes: atraumatic, normocephalic, PERRLA ENT: moist mucosal membranes Neck: full range of motion, no bruit/NL carotids, no JVD Cardiovascular: CV assessment: rub, regular rate and rhythm, BP pulses = bilaterally Murmur assessment: II/ SHANE, and DEM Respiratory: decreased breath sounds, on oxygen, clear to auscultation, no distress Abdomen: soft, non-tender, no pulsatile mass Lower extremity: LE assessment: edema, normal capillary refill, normal temperature Musculoskeletal: full range of motion Neuro/DISASTER RECOVERY SPECIALIST: alert, oriented X 3, CN II-XII intact, no motor deficits Wound/incision: Location: Chest Site condition: dressing clean dry Psychiatry: normal affect, normal judgment/insight, normal mood, no hallucinations Results Findings/Data: Laboratory Tests 04/04 034 Chemistry Sodium (137 - 145 MMOL/L) 132 L Potassium (3.5 - 5.1 MMOL/L) 3.9 Chloride (98 - 107 MMOL/L) 100 Carbon Dioxide (22 - 30 MMOL/L) 24 Anion Gap (14 - 24 MMOL/L) 12 L BUN (9 - 20 MG/DL) 16 Creatinine (0.66 - 1.25 MG/DL) 0.70 Glomerular Filtr Rate > 60 Glucose (74 - 106 MG/DL) 107 H Calcium (8.4 - 10.2 MG/DL) 8.8 Magnesium (1.6 - 2.3 MG/DL) 1.9 Laboratory Tests 04/04 0345 Hematology WBC (3.8 - 9.8 K/MM3) 8.7 RBC (3.95 - 5.67 M/MM3) 3.12 L Hgb (12.4 - 16.7 G/DL) 9.9 L Hct (35.9 - 49.5 %) 29.7 L MCV (81.7 - 96.1 fL) 95 MCH (27.6 - 33.2 pg) 31.7 MCHC (32.9 - 35.5 %) 33.3 RDW (12.1 - 15.2 %) 13.5 Plt Count (129 - 368 K/MM3) 163 MPV (7.4 - 10.4 fl) 9.0 Neut % (Auto) (43 - 75 %) 66.1 Lymph % (Auto) (14 - 44 %) 16.6 [place] % (Auto) (4 - 13 %) 14.2 H Eos % (Auto) (0 - 6 %) 2.3 Baso % (Auto) (0 - 2 %) 0.5 Neut # (Auto) (2.0 - 7.6 K/mm3) 5.75 Lymph # (Auto) (1.0 - 3.8 K/mm3) 1.45 [place] # (Auto) (0.1 - 0.8 K/mm3) 1.24 H Eos # (Auto) (0.0 - 0.2 K/mm3) 0.20 Baso # (Auto) (0.0 - 0.2 K/mm3) 0.04 Immature Gran % (0.0 - 2.0 %) 0.3 Nucleated RBC % (0 - 1.0 %) 0.0 Nucleated RBCs # (Man) (0.0 - 0.1 K/mm3) 0.00 Laboratory Tests 04/04 0345 Chemistry Magnesium (1.6 - 2.3 MG/DL) 1.9 Diagnosis, Assessment Plan Free Text DxA P Notes Free Text DxA P Notes: IMPRESSION: 1. Severe CAD, S/P Aortocoronary artery bypass times 4, GILBERT-LAD, SVG-Dx, OM and PDA, 04/01/19 2. HTN 3. 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 AI 6. COD 7. TAA 8. PVC's 9. COPD 10. Post-op ST elevation, likely pericarditis PLAN: 1. Continue cardiac medications 2. Ambulate 3. IS 4. PT/OT at 0715 RPT #:[id number] END OF REPORT [facility] 2019-04-04 04:55:00 [id number] [place] [id number] PATIENT NAME: LEATHA CORONEL ADMIT DATE: 04/01/19 ACCOUNT NO: [id number] ROOM NO: [facility] AGE: 68 REPORT TYPE: ELECTROCARDIOGRAM SEX: M ADMITTING PHYSICIAN:Marie Thibodeaux MD ATTENDING PHYSICIAN:Marie Thibodeaux MD Order: [id number] Test Reason : CAD Test Date/Time Stamp: ThuApr 04 2019 04:55:39 Blood Pressure : / mmHG Vent. Rate : 092 BPM Atrial Rate : 092 BPM P-R Int : 178 ms QRS Dur : 100 ms QT Int : 352 ms P-R-T Axes : 038 030 034 degrees QTc Int : 435 ms Normal sinus rhythm Possible Inferior infarct (cited on or before 02-APR-2019) Anterior infarct (cited on or before 03-APR-2019) Abnormal ECG When compared with ECG of 03-APR-2019 05:56, Questionable change in initial forces of Lateral leads Nonspecific T wave abnormality has replaced inverted T waves in Inferior leads Confirmed by GEORGE CONNOR ([id number]) on 04/04/2019 7:23:02 AM Referred By: lAbert Lazar Confirmed by:GEORGE CONNOR at 0723 PATIENT NAME: LEATHA CORONEL [facility] 2019-04-03 13:06:00 [facility] ([facility]) Cardiology Progress Note REPORT#:[id number] REPORT STATUS: Signed DATE:04/03/19 TIME: 1306 PATIENT: LEATHA CORONEL UNIT #: [id number] ROOM/BED: [address] : [birth year] AGE: 68 SEX: M ATTEND: Marie Thibodeaux MD ADM AUTHOR: Meghann Ingram NP * ALL edits or amendments must be made on the electronic/computer document * Subjective Chief Complaint: CP, S/P Aortocoronary artery bypass times 4 GILBERT-LAD, SVG-Dx, OM and PDA Free Text Subj Notes Free Text Subj Notes: Patient seen ambulating in taylor. No acute distress Pain at site of incision Denies SOB or palpitations Objective General VS/I O: 24 hour I O ending at 0700: 04/04 0700 04/03 1900 Intake Total 500 730 Output Total 80 830 Balance 420 -100 Intake, Oral 500 730 Number Voids 2 Output, Chest 80 80 Tube Drainage Output, Urine 750 Vital Signs: Date Time Temp Pulse Resp B/P B/P Pulse O2 O2 Flow FiO2 Mean Ox Delivery Rate 04/04 1211 98.1 84 18 96 Room air 04/04 1200 86 17 128/75 95 96 04/04 1100 85 24 119/68 89 97 04/04 1000 91 23 129/72 95 97 04/04 0900 95 118/69 88 97 04/04 0800 95 17 123/72 90 04/04 0718 98.1 95 18 98 Room air 04/04 0700 94 15 112/72 87 04/04 0658 100 Room air 21 04/04 0600 94 14 127/79 94 98 04/04 0500 93 144/86 108 95 04/04 0400 99.0 04/04 0400 90 16 136/75 100 95 04/04 0300 82 12 129/77 96 97 04/04 0200 81 13 129/71 92 97 04/04 0100 88 14 127/68 88 98 04/04 0000 98.8 04/04 0000 89 14 143/76 102 100 04/03 2300 92 13 141/78 104 100 04/03 2200 99 14 135/74 98 100 04/03 2127 105 18 147/77 106 100 04/03 2100 106 20 100 04/03 2030 99 15 96 04/03 1999 99.0 04/03 1999 Nasal 2 cannula 04/03 1999 98 17 96 04/03 1930 102 16 97 04/03 1900 105 15 96 04/03 1845 106 18 97 04/03 1841 99.1 107 21 96 Room air 04/03 1815 94 04/03 1800 94 16 96 04/03 1745 90 96 04/03 1728 101 96 04/03 1700 98 16 96 04/03 1648 100.2 104 22 98 Room air 04/03 1645 100 97 04/03 1630 103 96 04/03 1600 101 25 99 04/03 1545 100 20 99 04/03 1535 99.2 98 17 99 Nasal [id number] cannula 04/03 1530 101 100 04/03 1515 100 99 04/03 1500 100 16 99 04/03 1430 100 20 99 04/03 1415 100 16 99 04/03 1400 100 19 99 04/03 1345 99 99 04/03 1330 96 19 99 04/03 1315 93 17 99 04/03 1314 93 20 97 04/03 1300 91 17 99 04/03 1245 92 18 99 Patient Weight Weight (lb): 217 Weight (oz): 7.07 Weight (kg): 98.43 Medications: Active Meds + DC'd Last 24 Hrs Lisinopril 20 MG Q12HR PO Amlodipine Besylate 10 MG DAILY PO Famotidine 20 MG BID PO Lactulose 20 GM BID PO Mupirocin 1 APPLIC BID NASAL Patient Own Medication 0.5 EA BEDTIME PO Docusate Sodium 100 MG BID PRN PRN PO Tramadol HCl 50 MG Q8H PRN PRN PO Valsartan 320 MG DAILY PO (DC) Aspirin 81 MG DAILY PO Clopidogrel Bisulfate 75 MG DAILY PO Metoprolol Tartrate 25 MG Q12HR PO Atorvastatin Calcium 10 MG BEDTIME PO Dextrose/Water 12.5 GM ASDIR PRN IV Dextrose/Water 25 GM ASDIR PRN IV Acetaminophen 650 MG Q4H PRN PRN PO Acetaminophen 650 MG Q4H PRN PRN RECTAL Albumin Human 250 ML ASDIR PRN IV Calcium Gluconate 1,000 MG ASDIR PRN IV Sodium Chloride 100 ML Dobutamine HCl/Dextrose 250 ML ASDIR PRN IV Epinephrine 250 ML ASDIR PRN IV Hydrocodone Bitart/Acetaminophen 1 TAB Q4H PRN PRN PO Hydrocodone Bitart/Acetaminophen 2 TAB Q4H PRN PRN PO Insulin Human Regular 100 UNIT ASDIR IV (CKD) Sodium Chloride 99 ML Lidocaine HCl/Dextrose 500 ML ASDIR PRN IV (CKD) Magnesium Sulfate 50 ML ASDIR PRN IV Magnesium Sulfate/Dextrose 100 ML ASDIR PRN IV Meperidine HCl 25 MG Q6H PRN PRN IM Meperidine HCl 50 MG Q6H PRN PRN IM Morphine Sulfate 2 MG Q15M PRN PRN IV Nicardipine HCl 25 MG ASDIR PRN IV Sodium Chloride 250 ML Ondansetron HCl 4 MG Q8H PRN PRN IV Potassium Chloride 50 ML ASDIR PRN IV Potassium Chloride/Dextrose/Sod Cl 1,000 ML .[id number] IV (DC) Nicardipine HCl 25 MG ASDIR IV Sodium Chloride 250 ML Status post: Aortocoronary artery bypass times 4 GILBERT-LAD, SVG-Dx, OM and PDA Physical Exam General appearance: alert, awake, oriented, no acute distress Head/Eyes: atraumatic, normocephalic, PERRLA ENT: moist mucosal membranes Neck: full range of motion, no bruit/NL carotids, no JVD Cardiovascular: CV assessment: rub, regular rate and rhythm, BP pulses = bilaterally Murmur assessment: II/ SHANE, and DEM Respiratory: decreased breath sounds, on oxygen, clear to auscultation, no distress Abdomen: soft, non-tender, no pulsatile mass Lower extremity: LE assessment: edema, normal capillary refill, normal temperature Musculoskeletal: full range of motion Neuro/DISASTER RECOVERY SPECIALIST: alert, oriented X 3, CN II-XII intact, no motor deficits Wound/incision: Location: Chest Site condition: dressing clean dry Psychiatry: normal affect, normal judgment/insight, normal mood, no hallucinations Results Findings/Data: Laboratory Tests 04/03 2122 1354 Chemistry Sodium (137 - 145 MMOL/L) 133 L Potassium (3.5 - 5.1 MMOL/L) 4.1 4.0 Chloride (98 - 107 MMOL/L) 100 Carbon Dioxide (22 - 30 MMOL/L) 27 BUN (9 - 20 MG/DL) 14 Creatinine (0.66 - 1.25 MG/DL) 0.70 Glomerular Filtr Rate > 60 Glucose (74 - 106 MG/DL) 119 H POC Glucose (60 - 99 MG/DL) 125 H Calcium (8.4 - 10.2 MG/DL) 8.8 Magnesium (1.6 - 2.3 MG/DL) 2.0 Laboratory Tests 04/03 429 Hematology WBC (3.8 - 9.8 K/MM3) 12.9 H RBC (3.95 - 5.67 M/MM3) 3.28 L Hgb (12.4 - 16.7 G/DL) 10.4 L Hct (35.9 - 49.5 %) 30.5 L MCV (81.7 - 96.1 fL) 93 MCH (27.6 - 33.2 pg) 31.7 MCHC (32.9 - 35.5 %) 34.1 RDW (12.1 - 15.2 %) 13.6 Plt Count (129 - 368 K/MM3) 178 MPV (7.4 - 10.4 fl) 8.9 Neut % (Auto) (43 - 75 %) 74.1 Lymph % (Auto) (14 - 44 %) 11.4 L [place] % (Auto) (4 - 13 %) 12.9 Eos % (Auto) (0 - 6 %) 0.5 Baso % (Auto) (0 - 2 %) 0.3 Neut # (Auto) (2.0 - 7.6 K/mm3) 9.55 H Lymph # (Auto) (1.0 - 3.8 K/mm3) 1.47 [place] # (Auto) (0.1 - 0.8 K/mm3) 1.67 H Eos # (Auto) (0.0 - 0.2 K/mm3) 0.07 Baso # (Auto) (0.0 - 0.2 K/mm3) 0.04 Immature Gran % (0.0 - 2.0 %) 0.8 Nucleated RBC % (0 - 1.0 %) 0.0 Nucleated RBCs # (Man) (0.0 - 0.1 K/mm3) 0.00 Laboratory Tests 04/03 0430 Chemistry Magnesium (1.6 - 2.3 MG/DL) 2.0 Radiology data: Recent Impressions: RADIOLOGY - XR CHEST 1V 04/03 0550 Report Impression - Status: SIGNED Entered: 04/03/2019 0823 IMPRESSION: Interval removal of a [place] catheter. Otherwise stable exam, with a similar appearance of blunting of the left costophrenic sulcus and mild bibasilar linear opacities, which may represent atelectatic change. Impression By: [email or web address] - Lucas Madrid MD Diagnosis, Assessment Plan Free Text DxA P Notes Free Text DxA P Notes: IMPRESSION: 1. Severe CAD, S/P Aortocoronary artery bypass times 4, GILBERT-LAD, SVG-Dx, OM and PDA 2. HTN 3. 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 AI 6. COD 7. TAA 8. PVC's 9. COPD 10. Post-op ST elevation, likely pericarditis PLAN: 1. Continue cardiac medications 2. Ambulate 3. IS 4. PT/OT Plan discussed with patient and Dr. Younger Attestations Attestation needed: supervising physician at 1238 RPT #:[id number] END OF REPORT [facility] 2019-04-03 13:06:00 [facility] ([facility]) Cardiology Progress Note REPORT#:[id number] REPORT STATUS: Signed DATE:04/03/19 TIME: 1306 PATIENT: LEATHA CORONEL UNIT #: [id number] ROOM/BED: [address] : 52 AGE: 68 SEX: M ATTEND: Marie Thibodeaux MD ADM AUTHOR: Meghann Ingram NP * ALL edits or amendments must be made on the electronic/computer document * Subjective Chief Complaint: CP, S/P Aortocoronary artery bypass times 4 GILBERT-LAD, SVG-Dx, OM and PDA Free Text Subj Notes Free Text Subj Notes: Patient seen ambulating in taylor. No acute distress Pain at site of incision Denies SOB or palpitations Objective General VS/I O: 24 hour I O ending at 0700: 04/04 0700 04/03 1900 Intake Total 500 730 Output Total 80 830 Balance 420 -100 Intake, Oral 500 730 Number Voids 2 Output, Chest 80 80 Tube Drainage Output, Urine 750 Vital Signs: Date Time Temp Pulse Resp B/P B/P Pulse O2 O2 Flow FiO2 Mean Ox Delivery Rate 04/04 1211 98.1 84 18 96 Room air 04/04 1200 86 17 128/75 95 96 04/04 1100 85 24 119/68 89 97 04/04 1000 91 23 129/72 95 97 04/04 0900 95 118/69 88 97 04/04 0800 95 17 123/72 90 04/04 0718 98.1 95 18 98 Room air 04/04 0700 94 15 112/72 87 04/04 0658 100 Room air 21 04/04 0600 94 14 127/79 94 98 04/04 0500 93 144/86 108 95 04/04 0400 99.0 04/04 0400 90 16 136/75 100 95 04/04 0300 82 12 129/77 96 97 04/04 0200 81 13 129/71 92 97 04/04 0100 88 14 127/68 88 98 04/04 0000 98.8 04/04 0000 89 14 143/76 102 100 04/03 2300 92 13 141/78 104 100 04/03 2200 99 14 135/74 98 100 04/03 2127 105 18 147/77 106 100 04/03 2100 106 20 100 04/03 2030 99 15 96 04/03 1999 99.0 04/03 1999 Nasal 2 cannula 04/03 1999 98 17 96 04/03 1930 102 16 97 04/03 1900 105 15 96 04/03 1845 106 18 97 04/03 1841 99.1 107 21 96 Room air 04/03 1815 94 04/03 1800 94 16 96 04/03 1745 90 96 04/03 1728 101 96 04/03 1700 98 16 96 04/03 1648 100.2 104 22 98 Room air 04/03 1645 100 97 04/03 1630 103 96 04/03 1600 101 25 99 04/03 1545 100 20 99 04/03 1535 99.2 98 17 99 Nasal 3.151656 cannula 04/03 1530 101 100 04/03 1515 100 99 04/03 1500 100 16 99 04/03 1430 100 20 99 04/03 1415 100 16 99 04/03 1400 100 19 99 04/03 1345 99 99 04/03 1330 96 19 99 04/03 1315 93 17 99 04/03 1314 93 20 97 04/03 1300 91 17 99 04/03 1245 92 18 99 Patient Weight Weight (lb): 217 Weight (oz): 7.07 Weight (kg): 98.43 Medications: Active Meds + DC'd Last 24 Hrs Lisinopril 20 MG Q12HR PO Amlodipine Besylate 10 MG DAILY PO Famotidine 20 MG BID PO Lactulose 20 GM BID PO Mupirocin 1 APPLIC BID NASAL Patient Own Medication 0.5 EA BEDTIME PO Docusate Sodium 100 MG BID PRN PRN PO Tramadol HCl 50 MG Q8H PRN PRN PO Valsartan 320 MG DAILY PO (DC) Aspirin 81 MG DAILY PO Clopidogrel Bisulfate 75 MG DAILY PO Metoprolol Tartrate 25 MG Q12HR PO Atorvastatin Calcium 10 MG BEDTIME PO Dextrose/Water 12.5 GM ASDIR PRN IV Dextrose/Water 25 GM ASDIR PRN IV Acetaminophen 650 MG Q4H PRN PRN PO Acetaminophen 650 MG Q4H PRN PRN RECTAL Albumin Human 250 ML ASDIR PRN IV Calcium Gluconate 1,000 MG ASDIR PRN IV Sodium Chloride 100 ML Dobutamine HCl/Dextrose 250 ML ASDIR PRN IV Epinephrine 250 ML ASDIR PRN IV Hydrocodone Bitart/Acetaminophen 1 TAB Q4H PRN PRN PO Hydrocodone Bitart/Acetaminophen 2 TAB Q4H PRN PRN PO Insulin Human Regular 100 UNIT ASDIR IV (CKD) Sodium Chloride 99 ML Lidocaine HCl/Dextrose 500 ML ASDIR PRN IV (CKD) Magnesium Sulfate 50 ML ASDIR PRN IV Magnesium Sulfate/Dextrose 100 ML ASDIR PRN IV Meperidine HCl 25 MG Q6H PRN PRN IM Meperidine HCl 50 MG Q6H PRN PRN IM Morphine Sulfate 2 MG Q15M PRN PRN IV Nicardipine HCl 25 MG ASDIR PRN IV Sodium Chloride 250 ML Ondansetron HCl 4 MG Q8H PRN PRN IV Potassium Chloride 50 ML ASDIR PRN IV Potassium Chloride/Dextrose/Sod Cl 1,000 ML .[id number] IV (DC) Nicardipine HCl 25 MG ASDIR IV Sodium Chloride 250 ML Status post: Aortocoronary artery bypass times 4 GILBERT-LAD, SVG-Dx, OM and PDA Physical Exam General appearance: alert, awake, oriented, no acute distress Head/Eyes: atraumatic, normocephalic, PERRLA ENT: moist mucosal membranes Neck: full range of motion, no bruit/NL carotids, no JVD Cardiovascular: CV assessment: rub, regular rate and rhythm, BP pulses = bilaterally Murmur assessment: II/ SHANE, and DEM Respiratory: decreased breath sounds, on oxygen, clear to auscultation, no distress Abdomen: soft, non-tender, no pulsatile mass Lower extremity: LE assessment: edema, normal capillary refill, normal temperature Musculoskeletal: full range of motion Neuro/DISASTER RECOVERY SPECIALIST: alert, oriented X 3, CN II-XII intact, no motor deficits Wound/incision: Location: Chest Site condition: dressing clean dry Psychiatry: normal affect, normal judgment/insight, normal mood, no hallucinations Results Findings/Data: Laboratory Tests 04/03 2122 1354 Chemistry Sodium (137 - 145 MMOL/L) 133 L Potassium (3.5 - 5.1 MMOL/L) 4.1 4.0 Chloride (98 - 107 MMOL/L) 100 Carbon Dioxide (22 - 30 MMOL/L) 27 BUN (9 - 20 MG/DL) 14 Creatinine (0.66 - 1.25 MG/DL) 0.70 Glomerular Filtr Rate > 60 Glucose (74 - 106 MG/DL) 119 H POC Glucose (60 - 99 MG/DL) 125 H Calcium (8.4 - 10.2 MG/DL) 8.8 Magnesium (1.6 - 2.3 MG/DL) 2.0 Laboratory Tests 04/03 429 Hematology WBC (3.8 - 9.8 K/MM3) 12.9 H RBC (3.95 - 5.67 M/MM3) 3.28 L Hgb (12.4 - 16.7 G/DL) 10.4 L Hct (35.9 - 49.5 %) 30.5 L MCV (81.7 - 96.1 fL) 93 MCH (27.6 - 33.2 pg) 31.7 MCHC (32.9 - 35.5 %) 34.1 RDW (12.1 - 15.2 %) 13.6 Plt Count (129 - 368 K/MM3) 178 MPV (7.4 - 10.4 fl) 8.9 Neut % (Auto) (43 - 75 %) 74.1 Lymph % (Auto) (14 - 44 %) 11.4 L [place] % (Auto) (4 - 13 %) 12.9 Eos % (Auto) (0 - 6 %) 0.5 Baso % (Auto) (0 - 2 %) 0.3 Neut # (Auto) (2.0 - 7.6 K/mm3) 9.55 H Lymph # (Auto) (1.0 - 3.8 K/mm3) 1.47 [place] # (Auto) (0.1 - 0.8 K/mm3) 1.67 H Eos # (Auto) (0.0 - 0.2 K/mm3) 0.07 Baso # (Auto) (0.0 - 0.2 K/mm3) 0.04 Immature Gran % (0.0 - 2.0 %) 0.8 Nucleated RBC % (0 - 1.0 %) 0.0 Nucleated RBCs # (Man) (0.0 - 0.1 K/mm3) 0.00 Laboratory Tests 04/03 0430 Chemistry Magnesium (1.6 - 2.3 MG/DL) 2.0 Radiology data: Recent Impressions: RADIOLOGY - XR CHEST 1V 04/03 0550 Report Impression - Status: SIGNED Entered: 04/03/2019822 IMPRESSION: Interval removal of a Teton-Lana catheter. Otherwise stable exam, with a similar appearance of blunting of the left costophrenic sulcus and mild bibasilar linear opacities, which may represent atelectatic change. Impression By: [email or web address] - Lucas Madrid MD Diagnosis, Assessment Plan Free Text DxA P Notes Free Text DxA P Notes: IMPRESSION: 1. Severe CAD, S/P Aortocoronary artery bypass times 4, GILBERT-LAD, SVG-Dx, OM and PDA 2. HTN 3. 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 AI 6. COD 7. TAA 8. PVC's 9. COPD 10. Post-op ST elevation, likely pericarditis PLAN: 1. Continue cardiac medications 2. Ambulate 3. IS 4. PT/OT Plan discussed with patient and Dr. Younger Attestations Attestation needed: supervising physician at 1238 at 0715 RPT #:[id number] END OF REPORT [facility] 2019-04-03 11:50:00 [facility] ([facility]) Hospitalist Progress Note REPORT#:[id number] REPORT STATUS: Signed DATE:04/03/19 TIME: 1150 PATIENT: LEATHA CORONEL UNIT #: [id number] ROOM/BED: [address] : 52 AGE: 68 SEX: M ATTEND: Marie Thibodeaux MD ADM AUTHOR: Marie Thibodeaux MD * ALL edits or amendments must be made on the electronic/computer document * Subjective Chief Complaint: s/p CABG x4 day 3, constipation day 2 Review of Systems Constitutional: Denies: chills, fatigue, fever, generalized weakness. Skin: Denies: abrasion, bruising, contusion. Allergy/Immun: Reports: rhinorrhea. Eyes: Denies: diplopia, eye pain, photophobia. ENT: Reports: nasal congestion, sore throat. Denies: throat pain, throat swelling. Respiratory: Denies: GONZALES (dyspnea on exertion), productive cough (sputum), SOB. Cardiovascular: Denies: chest pain, GONZALES (dyspnea on exertion), palpitations. GI: Reports: constipation. Denies: diarrhea, nausea, vomiting. : Denies: dysuria, flank pain, frequency. Musculoskeletal: Denies: arthritis, extremity pain, extremity swelling. Neuro: Denies: confusion, dizziness, headache, lightheaded. Psych: Denies: anxiety, confusion, depression, insomnia. Objective General VS/I O: Vital Signs: Date Time Temp Pulse Resp B/P B/P Pulse O2 O2 Flow FiO2 Mean Ox Delivery Rate 04/03 1100 92 17 99 04/03 1045 93 18 99 04/03 1030 88 15 100 04/03 1015 87 15 99 04/03 1000 93 18 99 04/03 0945 102 19 98 04/03 0930 107 24 98 04/03 0915 106 97 04/03 0900 97 15 100 04/03 0845 98 100 04/03 0830 99 18 100 04/03 0800 98 18 99 04/03 0745 95 15 100 04/03 0730 Nasal 4.045102 cannula 04/03 0730 99.0 92 20 100 Nasal 4.243213 cannula 04/03 0730 93 15 100 04/03 0715 94 17 99 04/03 0700 98 26 98 04/03 0635 96 15 99 04/03 0615 97 17 100 04/03 0545 100 20 99 04/03 0515 98 16 98 04/03 0445 97 13 98 04/03 0415 95 100 04/03 0347 98.9 04/03 0345 96 15 99 04/03 0328 86 13 99 04/03 0300 83 13 99 04/03 0230 80 12 97 04/03 0200 81 13 98 04/03 0145 81 11 100 04/03 0115 80 13 99 04/03 0100 79 13 100 04/03 0030 78 15 98 04/03 0000 76 14 99 04/02 2351 99.0 04/02 2300 78 13 98 04/02 2230 79 13 98 04/02 2227 78 13 100 04/02 2200 79 14 100 04/02 2130 89 15 100 04/02 2115 89 18 100 04/02 2100 91 21 100 04/02 2014 89 16 100 04/02 1999 98.8 04/02 1999 Nasal 4.280526 cannula 04/02 1959 91 17 100 04/02 1945 91 15 100 04/02 1930 87 17 100 04/02 1915 91 97 04/02 1900 90 19 100 04/02 1845 91 20 100 04/02 1830 88 18 100 04/02 1815 93 23 100 04/02 1800 90 18 100 04/02 1745 17 100 04/02 1730 91 18 98 04/02 1715 93 22 04/02 1700 87 18 100 04/02 1645 85 17 100 04/02 1630 84 16 100 04/02 1615 87 19 100 04/02 1600 87 23 100 04/02 1600 99.0 92 20 100 Nasal 5.488429 cannula 04/02 1545 89 98 04/02 1530 85 17 100 04/02 1515 85 18 99 04/02 1500 82 19 100 04/02 1445 87 22 97 04/02 1430 84 18 98 04/02 1415 85 22 99 04/02 1400 87 18 100 04/02 1345 90 17 100 04/02 1330 83 100 04/02 1315 81 100 04/02 1300 86 15 100 04/02 1245 86 14 100 04/02 1230 86 18 100 04/02 1215 93 25 99 04/02 1200 98.1 83 20 99 Nasal 5.155084 cannula 04/02 1200 94 16 100 24 hour I O ending at 0700: 04/03 0700 04/02 1900 Intake Total 280.00 1712.00 Output Total 1120 1190 Balance -840.00 522.00 Intake, IV 80.00 492.00 Intake, Oral 200 1220 Output, Chest 95 180 Tube Drainage Output, Urine 1025 1010 Patient 98.43 kg Weight Patient Weight Weight (lb): 217 Weight (oz): 7.07 Weight (kg): 98.43 Medications: Active Meds + DC'd Last 24 Hrs Amlodipine Besylate 10 MG DAILY PO Famotidine 20 MG BID PO Patient Own Medication 0.5 EA DAILY PO (DC) Patient Own Medication 0.5 EA DAILY PO (DC) Lactulose 20 GM BID PO Loratadine 10 MG BEDTIME PO (CAN) Mupirocin 1 APPLIC BID NASAL Patient Own Medication 0.5 EA BEDTIME PO Non-Formulary Medication 1 EACH ASDIR PO (CAN) Docusate Sodium 100 MG BID PRN PRN PO Tramadol HCl 50 MG Q8H PRN PRN PO Valsartan 320 MG DAILY PO Albumin Human 25 GM .STK-MED ONE Z (DC) Albumin Human 12.5 GM .STK-MED ONE Z (DC) Bupivacaine HCl/Epinephrine Bitart 30 ML .STK-MED ONE Z (DC) Calcium Chloride 1 GM .STK-MED ONE Z (DC) Cefuroxime Sodium 1,500 MG .STK-MED ONE Z (DC) Heparin Sodium 10,000 UNITS .STK-MED ONE Z (DC) Heparin Sodium (Porcine) 1,000 UNIT .STK-MED ONE Z (DC) Lidocaine HCl 100 MG .STK-MED ONE Z (DC) Magnesium Sulfate 4 GM .STK-MED ONE Z (DC) Mannitol 37.5 GM .STK-MED ONE Z (DC) Nicardipine HCl 25 MG .STK-MED ONE Z (DC) Norepinephrine Bitartrate 4 MG .STK-MED ONE Z (DC) Parenteral Electrolytes 2,000 ML .STK-MED ONE Z (DC) Sodium Chloride 3,000 ML .STK-MED ONE Z (DC) Sodium Chloride 100 ML .STK-MED ONE Z (DC) Sodium Chloride 250 ML .STK-MED ONE Z (DC) Sodium Chloride 2,000 ML .STK-MED ONE Z (DC) Vasopressin 60 UNITS .STK-MED ONE Z (DC) Aspirin 81 MG DAILY PO Clopidogrel Bisulfate 75 MG DAILY PO Metoprolol Tartrate 25 MG Q12HR PO Atorvastatin Calcium 10 MG BEDTIME PO Famotidine 20 MG BID IV (DC) Mupirocin 1 APPLIC BID NASAL (DC) Cefuroxime Sodium 1,500 MG Q8H IV (DC) Sodium Chloride 20 ML Q8H IV (DC) Dextrose/Water 12.5 GM ASDIR PRN IV Dextrose/Water 25 GM ASDIR PRN IV Insulin Human Regular 100 UNIT ASDIR IV (DC) Sodium Chloride 99 ML Acetaminophen 650 MG Q4H PRN PRN PO Acetaminophen 650 MG Q4H PRN PRN RECTAL Albumin Human 250 ML ASDIR PRN IV Calcium Gluconate 1,000 MG ASDIR PRN IV Sodium Chloride 100 ML Dextrose/Water 12.5 GM ASDIR PRN IV (CAN) Dextrose/Water 25 GM ASDIR PRN IV (CAN) Dobutamine HCl/Dextrose 250 ML ASDIR PRN IV Epinephrine 250 ML ASDIR PRN IV Hydrocodone Bitart/Acetaminophen 1 TAB Q4H PRN PRN PO Hydrocodone Bitart/Acetaminophen 2 TAB Q4H PRN PRN PO Insulin Human Regular 100 UNIT ASDIR IV (CKD) Sodium Chloride 99 ML Lidocaine HCl/Dextrose 500 ML ASDIR PRN IV (CKD) Magnesium Sulfate 50 ML ASDIR PRN IV Magnesium Sulfate/Dextrose 100 ML ASDIR PRN IV Meperidine HCl 25 MG Q6H PRN PRN IM Meperidine HCl 50 MG Q6H PRN PRN IM Morphine Sulfate 2 MG Q15M PRN PRN IV Nicardipine HCl 25 MG ASDIR PRN IV Sodium Chloride 250 ML Ondansetron HCl 4 MG Q8H PRN PRN IV Potassium Chloride 50 ML ASDIR PRN IV Potassium Chloride/Dextrose/Sod Cl 1,000 ML .[id number] IV Nicardipine HCl 25 MG ASDIR IV Sodium Chloride 250 ML Dextrose/Water 12.5 GM ASDIR PRN IV (CAN) Dextrose/Water 25 GM ASDIR PRN IV (CAN) Physical Exam General appearance: alert, awake, oriented Head/Eyes: atraumatic, clear cornea, PERRLA ENT: moist mucosal membranes, normal dentition Neck: full range of motion, non-tender Cardiovascular: normal capillary refill, normal heart sounds, regular rate rhythm Respiratory: aerating well, clear to auscultation Abdomen: non-tender, soft Genitourinary: wiggins Rectal: not indicated Musculoskeletal: normal inspection Neuro/DISASTER RECOVERY SPECIALIST: alert, oriented X 3, normal speech Skin: dry, intact Psychiatry: normal affect, normal judgment/insight, normal mood Results Findings/Data: Laboratory Tests 04/03 2122 1354 1305 1157 Chemistry Sodium (137 - 145 MMOL/L) 133 L Potassium (3.5 - 5.1 MMOL/L) 4.1 4.0 Chloride (98 - 107 MMOL/L) 100 Carbon Dioxide (22 - 30 MMOL/L) 27 BUN (9 - 20 MG/DL) 14 Creatinine (0.66 - 1.25 MG/DL) 0.70 Glomerular Filtr Rate > 60 Glucose (74 - 106 MG/DL) 119 H POC Glucose (60 - 99 MG/DL) 125 H 149 H 161 H Calcium (8.4 - 10.2 MG/DL) 8.8 Magnesium (1.6 - 2.3 MG/DL) 2.0 Laboratory Tests 04/030 Hematology WBC (3.8 - 9.8 K/MM3) 12.9 H RBC (3.95 - 5.67 M/MM3) 3.28 L Hgb (12.4 - 16.7 G/DL) 10.4 L Hct (35.9 - 49.5 %) 30.5 L MCV (81.7 - 96.1 fL) 93 MCH (27.6 - 33.2 pg) 31.7 MCHC (32.9 - 35.5 %) 34.1 RDW (12.1 - 15.2 %) 13.6 Plt Count (129 - 368 K/MM3) 178 MPV (7.4 - 10.4 fl) 8.9 Neut % (Auto) (43 - 75 %) 74.1 Lymph % (Auto) (14 - 44 %) 11.4 L [place] % (Auto) (4 - 13 %) 12.9 Eos % (Auto) (0 - 6 %) 0.5 Baso % (Auto) (0 - 2 %) 0.3 Neut # (Auto) (2.0 - 7.6 K/mm3) 9.55 H Lymph # (Auto) (1.0 - 3.8 K/mm3) 1.47 [place] # (Auto) (0.1 - 0.8 K/mm3) 1.67 H Eos # (Auto) (0.0 - 0.2 K/mm3) 0.07 Baso # (Auto) (0.0 - 0.2 K/mm3) 0.04 Immature Gran % (0.0 - 2.0 %) 0.8 Nucleated RBC % (0 - 1.0 %) 0.0 Nucleated RBCs # (Man) (0.0 - 0.1 K/mm3) 0.00 Radiology data: Recent Impressions: RADIOLOGY - XR CHEST 1V 04/03 0550 Report Impression - Status: SIGNED Entered: 04/03/2019822 IMPRESSION: Interval removal of a Teton-Lana catheter. Otherwise stable exam, with a similar appearance of blunting of the left costophrenic sulcus and mild bibasilar linear opacities, which may represent atelectatic change. Impression By: [email or web address] - Lucas Madrid MD Diagnosis, Assessment Plan Free Text DxA P Notes Free Text DxA P Notes: Assessment: - s/p CABGx4 day 3 - CAD - seasonal allergies has Zyrtec w pseudoephedrine - constipation - difficulty sleeping - HTN on 3 meds, wants to be taken off BB due to ED - DM Plan: 04/02 Patient was seen at bedside. He reports he is sore from his surgery. He states that he has medication for his allergies he would like to take, which I will agree to and make note of in his chart. He also reports that he is constipated and would like an option for medication relief if necessary. Patient reports he would like to further discuss his BP medications before discharge. - start valsartan - lactulose as needed - start loratidine at bedtime, or his personal allergy medication - pain management - tramadol - NC 5L - cont management as per Dr. Lazar and Dr. Connor 04/03 Patient was seen at bedside. He states he did well with PT and was able to walk without SOB. He reports that he did not sleep well last night, max 1 hour. He reports constipation, but refused his lactulose according to his nurse. Patient reports he would like to further discuss his BP medications before discharge with his goal to minimize medications with ED side effects. Patient would like to change his zyrtec to 2x daily, but I will withhold as this will further elevate his BP. - cont zyrtec once daily, adjust if necessary and BP controlled - D/C valsartan; start lisinopril - lactulose as needed - pain management - tramadol - NC 5L - cont management as per Dr. Lazar and Dr. Connor Quality Advanced Care Plan 65 or Older Discussed with: patient Discussion included: code status at 1457 RPT #:[id number] END OF REPORT [facility] 2019-04-03 05:56:00 [id number] [place] [id number] PATIENT NAME: LEATHA CORONEL ADMIT DATE: 04/01/19 ACCOUNT NO: [id number] ROOM NO: Z.SI02 AGE: 68 REPORT TYPE: ELECTROCARDIOGRAM SEX: M ADMITTING PHYSICIAN:Marie Thibodeaux MD ATTENDING PHYSICIAN:Marie Thibodeaux MD Order: [id number] Test Reason : CAD Test Date/Time Stamp: [place] Apr 03 2019 05:56:42 Blood Pressure : / mmHG Vent. Rate : 097 BPM Atrial Rate : 097 BPM P-R Int : 164 ms QRS Dur : 098 ms QT Int : 346 ms P-R-T Axes : 026 010 001 degrees QTc Int : 439 ms Normal sinus rhythm Inferior infarct (cited on or before 02-APR-2019) Anterolateral infarct , age undetermined Abnormal ECG When compared with ECG of 02-APR-2019 06:08, Anterior infarct is now present Anterolateral infarct is now present Confirmed by GEORGE CONNOR ([id number]) on 04/03/2019 7:43:03 AM Referred By: Albert Lazar Confirmed by:GEORGE CONNOR at 0743 PATIENT NAME: LEATHA CORONEL [facility] 2019-04-02 18:05:00 [id number] [address] PATIENT NAME: LEATHA CORONEL ADMIT DATE: 04/01/19 ACCOUNT NO: [id number] ROOM NO: Z.358 AGE: 68 REPORT TYPE: CONSULTATION REPORT SEX: M ADMITTING PHYSICIAN:Marie Thibodeaux MD ATTENDING PHYSICIAN:Marie Thibodeaux MD CONSULTATION DATE: CONSULTING PHYSICIAN: Marie Thibodeaux MD CONSULTATION REQUESTED BY: Dr. Lazar post-bypass surgery. HISTORY OF PRESENT ILLNESS: This is a 68-year-old gentleman, who has significant coronary artery disease on the cardiac catheterization that was done by Dr. Connor 03/26/2019. The patient was brought in today for bypass surgery. The patient just came in from bypass surgery. He is still intubated. Otherwise, looks comfortable. PAST MEDICAL HISTORY: Includes history of ischemic cardiomyopathy, EF 39% to 42%. The last echocardiogram showed mildly dilated aorta, ascending and roots, [id number] MR, mild aortic insufficiency, EF around 55, history of hypertension, hyperlipidemia, mitral valve prolapse, PVCs, carotid disease, lumbar disk disease and sinus allergies. PAST SURGICAL HISTORY: Tonsillectomy, left eye lens implant, back steroid injection. ALLERGIES: NO KNOWN ALLERGIES. MEDICATIONS: Carvedilol 25 b.i.d., pravastatin 40 mg 1-1/2 daily, valsartan 320 daily, allopurinol 300 daily, amlodipine 5 mg daily, Lasix 20 mg daily. SOCIAL HISTORY: The patient does not smoke or do drugs. He drinks socially. FAMILY HISTORY: Positive for atherosclerotic disease. REVIEW OF SYSTEMS: The patient is post CABG, history is mostly from the medical records. PHYSICAL EXAMINATION: GENERAL: The patient is intubated, currently sedated. VITAL SIGNS: Noted. HEENT: Pupils are round and reactive. ET tube in place. The patient has Teton-Lana central lines and femoral line, radial art. line chest tube and Wiggins in place. CHEST: No crackles. Diminished breath sounds. CARDIOVASCULAR: Regular rate and rhythm. ABDOMEN: Soft. Chest tubes in place. PATIENT NAME: LEATHA CORONEL EXTREMITIES: No edema. Legs are bandaged and clean. CENTRAL NERVOUS SYSTEM: The patient is sedated. LABORATORY STUDIES: Noted. ASSESSMENT: 1. Status post bypass surgery, GILBERT to LAD, saphenous vein to diagonal, OM, and right PDA, endoscopic vein harvesting, right greater saphenous vein. 2. Hypertension. 3. Hyperlipidemia. 4. History of ischemic cardiomyopathy. 5. Sinus allergies. PLAN: Continue weaning per Dr. Lazar, anticipate the patient to be extubated. We will monitor the patient closely. Currently, he is also on insulin drip for 24 hours. Dictated By: Marie Thibodeaux MD WT: CON:DianeMEGHAN/ROMAN/GALLITO Conf#: [id number]/DID#: [id number] Authenticated by Marie Thibodeaux MD On 04/04/2019 06:30:16 PM at 1830 PATIENT NAME: LEATHA CORONEL [facility] 2019-04-02 17:59:00 [facility] Hospitalist Progress Note REPORT#:[id number] REPORT STATUS: Signed DATE:04/02/19 TIME: 1759 PATIENT: LEATHA CORONEL UNIT #: [id number] ROOM/BED: [address] : [birth year] AGE: 68 SEX: M ATTEND: Marie Thibodeaux MD ADM AUTHOR: Marie Thibodeaux MD * ALL edits or amendments must be made on the electronic/computer document * Subjective Chief Complaint: s/p CABG x4 day 2, constipation day 1 Review of Systems Constitutional: Denies: chills, fatigue, fever, generalized weakness. Skin: Denies: abrasion, bruising, contusion. Allergy/Immun: Reports: rhinorrhea. Eyes: Denies: diplopia, eye pain, photophobia. ENT: Reports: nasal congestion, sore throat. Denies: throat pain, throat swelling. Respiratory: Denies: GONZALES (dyspnea on exertion), productive cough (sputum), SOB. Cardiovascular: Denies: chest pain, GONZALES (dyspnea on exertion), palpitations. GI: Reports: constipation. Denies: diarrhea, nausea, vomiting. : Denies: dysuria, flank pain, frequency. Musculoskeletal: Denies: arthritis, extremity pain, extremity swelling. Neuro: Denies: confusion, dizziness, headache, lightheaded. Psych: Denies: anxiety, confusion, depression, insomnia. Objective General VS/I O: Vital Signs: Date Time Temp Pulse Resp B/P B/P Pulse O2 O2 Flow FiO2 Mean Ox Delivery Rate 04/02 1600 99.0 92 20 100 Nasal 5.043624 cannula 04/02 1515 85 18 99 04/02 1500 82 19 100 04/02 1445 87 22 97 04/02 1430 84 18 98 04/02 1415 85 22 99 04/02 1400 87 18 100 04/02 1345 90 17 100 04/02 1330 83 100 04/02 1315 81 100 04/02 1300 86 15 100 04/02 1245 86 14 100 04/02 1230 86 18 100 04/02 1215 93 25 99 04/02 1200 98.1 83 20 99 Nasal 5.366118 cannula 04/02 1200 94 16 100 04/02 1145 97 99 04/02 1130 94 20 98 04/02 1115 89 16 100 04/02 1100 88 15 100 04/02 1045 89 16 100 04/02 1030 90 16 100 04/02 1015 87 15 100 04/02 1000 90 18 100 04/02 0945 91 20 100 04/02 0930 94 22 100 04/02 0915 90 20 100 04/02 0900 86 19 98 04/02 0900 98.9 91 20 100 Nasal 5.934587 cannula 04/02 0845 85 15 100 04/02 0830 90 19 99 04/02 0815 83 99 04/02 0800 88 14 100 04/02 0745 87 100 04/02 0730 90 15 99 04/02 0715 89 16 100 04/02 0700 90 19 99 04/02 0615 88 14 100 04/02 0600 89 14 100 04/02 0545 18 100 04/02 0530 93 17 100 04/02 0515 94 16 100 04/02 0500 97 25 04/02 0445 94 04/02 0430 96 22 96 04/02 0415 97 04/02 0400 98.5 04/02 0400 Face mist 60 tent 04/02 0400 93 25 97 04/02 0345 89 18 99 04/02 0338 87 04/02 0338 15 100 04/02 0330 87 04/02 0330 18 99 04/02 0315 86 15 98 04/02 0300 84 13 99 04/02 0245 86 16 96 04/02 0230 88 19 97 04/02 0215 88 14 99 04/02 0200 84 15 100 04/02 0145 84 15 100 04/02 0130 86 18 99 04/02 0115 84 16 100 04/02 0100 84 15 100 04/02 0045 84 16 100 04/02 0030 84 16 99 04/02 0015 83 18 99 04/02 0000 98.5 04/02 0000 85 16 95 04/01 2345 85 15 100 04/01 2330 84 17 99 04/01 2315 86 20 97 04/01 2300 84 17 97 04/01 2245 89 22 95 04/01 2230 85 16 100 04/01 2215 85 15 99 04/01 2200 85 16 100 04/01 2145 85 15 100 04/01 2137 17 04/010 87 16 100 04/010 87 16 100 04/015 87 16 100 04/01 2114 87 16 100 04/01 2100 85 16 100 04/01 2100 85 16 100 04/01 2044 85 16 100 04/01 2044 85 16 100 04/01 2029 86 16 100 04/01 2029 86 16 100 04/01 2014 87 14 100 04/01 2014 87 14 100 04/01 2007 100 Face mist 10.510547 60 tent 04/01 1999 88 20 100 04/01 1954 98.5 04/01 1944 89 18 100 04/01 194 89 18 100 04/01 1930 Ventilator 40 04/01 1930 85 14 100 04/01 1930 85 14 100 04/01 1914 87 16 100 04/01 191 87 16 100 04/01 1900 98.5 04/01 1900 84 14 99 04/01 1900 84 14 99 04/01 1900 86 24 139/64 100 04/01 1846 85 142/66 100 40 04/01 184 84 14 100 24 hour I O ending at 0700: 04/02 0700 04/01 1900 Intake Total 1138.00 620.60 Output Total 1585 1930 Balance -447.00 -1309.40 Intake, IV 938.00 520.60 Intake, Oral 200 Intake, Tube 100 Irrigant Output, Chest 180 130 Tube Drainage Output, Urine 1230 1800 Output, 175 Urine/Stool Mix Patient 98.63 kg Weight Weight Standing scale Measurement Method Patient Weight Weight (lb): 217 Weight (oz): 7.07 Weight (kg): 98.43 Medications: Active Meds + DC'd Last 24 Hrs Amlodipine Besylate 10 MG DAILY PO Lactulose 20 GM BID PO Loratadine 10 MG BEDTIME PO Mupirocin 1 APPLIC BID NASAL Docusate Sodium 100 MG BID PRN PRN PO Tramadol HCl 50 MG Q8H PRN PRN PO Valsartan 320 MG DAILY PO Albumin Human 25 GM .STK-MED ONE Z (DC) Albumin Human 12.5 GM .STK-MED ONE Z (DC) Bupivacaine HCl/Epinephrine Bitart 30 ML .STK-MED ONE Z (DC) Calcium Chloride 1 GM .STK-MED ONE Z (DC) Cefuroxime Sodium 1,500 MG .STK-MED ONE Z (DC) Heparin Sodium 10,000 UNITS .STK-MED ONE Z (DC) Heparin Sodium (Porcine) 1,000 UNIT .STK-MED ONE Z (DC) Lidocaine HCl 100 MG .STK-MED ONE Z (DC) Magnesium Sulfate 4 GM .STK-MED ONE Z (DC) Mannitol 37.5 GM .STK-MED ONE Z (DC) Nicardipine HCl 25 MG .STK-MED ONE Z (DC) Norepinephrine Bitartrate 4 MG .STK-MED ONE Z (DC) Parenteral Electrolytes 2,000 ML .STK-MED ONE Z (DC) Sodium Chloride 3,000 ML .STK-MED ONE Z (DC) Sodium Chloride 100 ML .STK-MED ONE Z (DC) Sodium Chloride 250 ML .STK-MED ONE Z (DC) Sodium Chloride 2,000 ML .STK-MED ONE Z (DC) Vasopressin 60 UNITS .STK-MED ONE Z (DC) Aspirin 81 MG DAILY PO Clopidogrel Bisulfate 75 MG DAILY PO Metoprolol Tartrate 25 MG Q12HR PO Atorvastatin Calcium 10 MG BEDTIME PO Famotidine 20 MG BID IV Mupirocin 1 APPLIC BID NASAL Cefuroxime Sodium 1,500 MG Q8H IV Sodium Chloride 20 ML Q8H IV (CKD) Dextrose/Water 12.5 GM ASDIR PRN IV Dextrose/Water 25 GM ASDIR PRN IV Insulin Human Regular 100 UNIT ASDIR IV (CKD) Sodium Chloride 99 ML Acetaminophen 650 MG Q4H PRN PRN PO Acetaminophen 650 MG Q4H PRN PRN RECTAL Albumin Human 250 ML ASDIR PRN IV Calcium Gluconate 1,000 MG ASDIR PRN IV Sodium Chloride 100 ML Dextrose/Water 12.5 GM ASDIR PRN IV Dextrose/Water 25 GM ASDIR PRN IV Dobutamine HCl/Dextrose 250 ML ASDIR PRN IV Epinephrine 250 ML ASDIR PRN IV Hydrocodone Bitart/Acetaminophen 1 TAB Q4H PRN PRN PO Hydrocodone Bitart/Acetaminophen 2 TAB Q4H PRN PRN PO Insulin Human Regular 100 UNIT ASDIR IV (CKD) Sodium Chloride 99 ML Lidocaine HCl/Dextrose 500 ML ASDIR PRN IV (CKD) Magnesium Sulfate 50 ML ASDIR PRN IV Magnesium Sulfate/Dextrose 100 ML ASDIR PRN IV Meperidine HCl 25 MG Q6H PRN PRN IM Meperidine HCl 50 MG Q6H PRN PRN IM Morphine Sulfate 2 MG Q15M PRN PRN IV Nicardipine HCl 25 MG ASDIR PRN IV Sodium Chloride 250 ML Ondansetron HCl 4 MG Q8H PRN PRN IV Potassium Chloride 50 ML ASDIR PRN IV Potassium Chloride/Dextrose/Sod Cl 1,000 ML .[id number] IV Nicardipine HCl 25 MG ASDIR IV Sodium Chloride 250 ML Dextrose/Water 12.5 GM ASDIR PRN IV Dextrose/Water 25 GM ASDIR PRN IV Physical Exam General appearance: alert, awake, oriented, pleasant, conversational Head/Eyes: atraumatic, clear cornea, PERRLA ENT: moist mucosal membranes, normal dentition Neck: full range of motion, non-tender Cardiovascular: normal capillary refill, normal heart sounds, regular rate rhythm Respiratory: aerating well, clear to auscultation Abdomen: non-tender, soft Genitourinary: wiggins Rectal: not indicated Musculoskeletal: normal inspection Neuro/DISASTER RECOVERY SPECIALIST: alert, oriented X 3, normal speech Skin: dry, intact Psychiatry: normal affect, normal judgment/insight, normal mood Results Findings/Data: Laboratory Tests 04/02 04/02 04/02 04/02 04/02 1029 0850 0654 0612 0514 Chemistry POC Glucose (60 - 99 MG/DL) 228 H 144 H 134 H 161 H 157 H 04/02 04/02 04/02 04/02 04/01 0350 0319 0119 0018 2205 Chemistry Sodium (137 - 145 MMOL/L) 139 Potassium (3.5 - 5.1 MMOL/L) 4.1 Chloride (98 - 107 MMOL/L) 105 Carbon Dioxide (22 - 30 MMOL/L) 26 BUN (9 - 20 MG/DL) 15 Creatinine (0.66 - 1.25 MG/DL) 0.90 Glomerular Filtr Rate > 60 Glucose (74 - 106 MG/DL) 159 H POC Glucose (60 - 99 MG/DL) 157 H 157 H 160 H 158 H Calcium (8.4 - 10.2 MG/DL) 9.2 Magnesium (1.6 - 2.3 MG/DL) 2.6 H 04/01 Chemistry POC Glucose (60 - 99 MG/DL) 177 H 186 H 183 H 101 H Laboratory Tests 04/02 0350 Coagulation INR 1.2 APTT (25.1 - 36.5 SECONDS) 48.5 H PT Patient/Control Mix (9.4 - 12.5 SECONDS) 13.2 H Laboratory Tests 04/02 0350 Hematology WBC (3.8 - 9.8 K/MM3) 12.4 H RBC (3.95 - 5.67 M/MM3) 3.64 L Hgb (12.4 - 16.7 G/DL) 11.6 L Hct (35.9 - 49.5 %) 33.9 L MCV (81.7 - 96.1 fL) 93 MCH (27.6 - 33.2 pg) 31.9 MCHC (32.9 - 35.5 %) 34.2 RDW (12.1 - 15.2 %) 13.2 Plt Count (129 - 368 K/MM3) 192 MPV (7.4 - 10.4 fl) 9.0 Neut % (Auto) (43 - 75 %) 85.1 H Lymph % (Auto) (14 - 44 %) 4.8 L [place] % (Auto) (4 - 13 %) 9.6 Eos % (Auto) (0 - 6 %) 0.0 Baso % (Auto) (0 - 2 %) 0.1 Neut # (Auto) (2.0 - 7.6 K/mm3) 10.52 H Lymph # (Auto) (1.0 - 3.8 K/mm3) 0.59 L [place] # (Auto) (0.1 - 0.8 K/mm3) 1.19 H Eos # (Auto) (0.0 - 0.2 K/mm3) 0.00 Baso # (Auto) (0.0 - 0.2 K/mm3) 0.01 Immature Gran % (0.0 - 2.0 %) 0.4 Nucleated RBC % (0 - 1.0 %) 0.0 Nucleated RBCs # (Man) (0.0 - 0.1 K/mm3) 0.00 Radiology data: Recent Impressions: RADIOLOGY - XR CHEST 1V 04/02 0434 Report Impression - Status: SIGNED Entered: 04/02/2019818 Impression: 1. Interval extubation. 2. Improving aeration of the lung bases. Impression By: [email or web address] - Albert Naylor M.D. Diagnosis, Assessment Plan Free Text DxA P Notes Free Text DxA P Notes: Assessment: - s/p CABGx4 day 2 - seasonal allergies - constipation - HTN - DM Plan: Patient was seen at bedside. He reports he is sore from his surgery. He states that he has medication for his allergies he would like to take, which I will agree to and make note of in his chart. He also reports that he is constipated and would like an option for medication relief if necessary. Patient reports he would like to further discuss his BP medications before discharge. - start valsartan - lactulose as needed - start loratidine at bedtime, or his personal allergy medication - pain management - tramadol - NC 5L - cont management as per Dr. Lazar and Dr. Connor at 1948 RPT #:[id number] END OF REPORT [facility] 2019-04-02 06:17:00 [facility] ([facility]) Cardiology Progress Note REPORT#:[id number] REPORT STATUS: Signed DATE:04/02/19 TIME: 616 PATIENT: LEATHA CORONEL UNIT #: [id number] ROOM/BED: [facility]-A : 52 AGE: 68 SEX: M ATTEND: Albert Lazar MD ADM AUTHOR: George Connor MD * ALL edits or amendments must be made on the electronic/computer document * Subjective Chief Complaint: CP, S/P Aortocoronary artery bypass times 4 GILBERT-LAD, SVG-Dx, OM and PDA Patient reports: Yes: chest pain, shortness of breath. No: abdominal pain, palpitations, swelling. Nursing reports: No: complaints. Objective General VS/I O: 24 hour I O ending at 0700: 04/02 0700 04/01 1900 Intake Total 880.00 620.60 Output Total 1165 1930 Balance -285.00 -1309.40 Intake, IV 680.00 520.60 Intake, Oral 200 Intake, Tube 100 Irrigant Output, Chest 140 130 Tube Drainage Output, Urine 850 1800 Output, 175 Urine/Stool Mix Patient 98.63 kg Weight Weight Standing scale Measurement Method Vital Signs: Date Time Temp Pulse Resp B/P B/P Pulse O2 O2 Flow FiO2 Mean Ox Delivery Rate 04/02 0545 18 100 04/02 0530 93 17 100 04/02 0515 94 16 100 04/02 0500 97 25 04/02 0445 94 04/02 0430 96 22 96 04/02 0415 97 04/02 0400 98.5 04/02 0400 Face mist 60 tent 04/02 0400 93 25 97 04/02 0345 89 18 99 04/02 0338 87 04/02 0338 15 100 04/02 0330 87 04/02 0330 18 99 04/02 0315 86 15 98 04/02 0300 84 13 99 04/02 0245 86 16 96 04/02 0230 88 19 97 04/02 0215 88 14 99 04/02 0200 84 15 100 04/02 0145 84 15 100 04/02 0130 86 18 99 04/02 0115 84 16 100 04/02 0100 84 15 100 04/02 0045 84 16 100 04/02 0030 84 16 99 04/02 0015 83 18 99 04/02 0000 98.5 04/02 0000 85 16 95 04/01 2345 85 15 100 04/01 2330 84 17 99 04/01 2315 86 20 97 04/01 2300 84 17 97 04/01 2245 89 22 95 04/01 2230 85 16 100 04/01 2215 85 15 99 04/01 2200 85 16 100 04/01 2145 85 15 100 04/01 2137 17 04/01 2130 87 16 100 02/21 2130 87 16 100 04/015 87 16 100 04/01 2114 87 16 100 04/01 2100 85 16 100 04/01 2099 85 16 100 04/01 2044 85 16 100 04/01 2044 85 16 100 04/01 2029 86 16 100 04/01 2029 86 16 100 04/01 2014 87 14 100 04/01 2014 87 14 100 04/01 2007 100 Face mist 10.913814 60 tent 04/01 1999 88 20 100 04/01 1954 98.5 04/01 194 89 18 100 04/01 1945 89 18 100 04/01 1930 Ventilator 40 04/01 1930 85 14 100 04/01 1930 85 14 100 04/01 1915 87 16 100 04/01 1915 87 16 100 04/01 1900 98.5 04/01 1900 84 14 99 04/01 1900 84 14 99 04/01 1900 86 24 139/64 100 04/01 1846 85 142/66 100 40 04/01 1845 84 14 100 04/01 1800 98.5 04/01 1738 86 16 98 04/01 1723 88 18 100 04/01 1708 87 20 100 04/01 1700 98.3 04/01 1653 86 16 100 04/01 1644 86 04/01 1644 87 17 100 04/01 1638 86 15 100 04/01 1623 86 17 100 04/01 1620 82 100 40 04/01 1608 87 19 100 04/01 1600 98.3 04/01 1553 88 21 100 04/01 1545 98.3 04/01 1538 81 12 100 04/01 1530 98.4 04/01 1523 79 12 100 04/01 1515 98.3 04/01 1500 98.3 40 04/01 1500 Ventilator 100 04/01 1500 87 100 100 04/01 0713 97.4 73 20 141/83 100 04/01 0709 97.4 73 20 141/83 100 Room air Patient Weight Weight (lb): 217 Weight (oz): 7.07 Weight (kg): 98.630 Medications: Active Meds + DC'd Last 24 Hrs Aspirin 81 MG DAILY PO Clopidogrel Bisulfate 75 MG DAILY PO Metoprolol Tartrate 25 MG Q12HR PO Atorvastatin Calcium 10 MG BEDTIME PO Famotidine 20 MG BID IV Mupirocin 1 APPLIC BID NASAL Cefuroxime Sodium 1,500 MG Q8H IV Sodium Chloride 20 ML Q8H IV (CKD) Aspirin 162 MG ONCE ONE PO (DC) Dextrose/Water 12.5 GM ASDIR PRN IV Dextrose/Water 25 GM ASDIR PRN IV Insulin Human Regular 100 UNIT ASDIR IV (CKD) Sodium Chloride 99 ML Acetaminophen 650 MG Q4H PRN PRN PO Acetaminophen 650 MG Q4H PRN PRN RECTAL Albumin Human 250 ML ASDIR PRN IV Calcium Gluconate 1,000 MG ASDIR PRN IV Sodium Chloride 100 ML Dextrose/Water 12.5 GM ASDIR PRN IV Dextrose/Water 25 GM ASDIR PRN IV Dobutamine HCl/Dextrose 250 ML ASDIR PRN IV Epinephrine 250 ML ASDIR PRN IV Hydrocodone Bitart/Acetaminophen 1 TAB Q4H PRN PRN PO Hydrocodone Bitart/Acetaminophen 2 TAB Q4H PRN PRN PO Insulin Human Regular 100 UNIT ASDIR IV (CKD) Sodium Chloride 99 ML Lidocaine HCl/Dextrose 500 ML ASDIR PRN IV (CKD) Magnesium Sulfate 50 ML ASDIR PRN IV Magnesium Sulfate/Dextrose 100 ML ASDIR PRN IV Meperidine HCl 25 MG Q6H PRN PRN IM Meperidine HCl 50 MG Q6H PRN PRN IM Morphine Sulfate 2 MG Q15M PRN PRN IV Nicardipine HCl 25 MG ASDIR PRN IV Sodium Chloride 250 ML Ondansetron HCl 4 MG Q8H PRN PRN IV Potassium Chloride 50 ML ASDIR PRN IV Potassium Chloride/Dextrose/Sod Cl 1,000 ML .[id number] IV Nicardipine HCl 25 MG ASDIR IV Sodium Chloride 250 ML Dextrose/Water 12.5 GM ASDIR PRN IV Dextrose/Water 25 GM ASDIR PRN IV Diphenhydramine HCl 0 .STK-MED ONE .ROUTE (DC) Famotidine 0 .STK-MED ONE .ROUTE (DC) Methylprednisolone Sodium Succinate 0 .STK-MED ONE .ROUTE (DC) Norepinephrine Bitartrate 0 .STK-MED ONE .ROUTE (DC) Rocuronium Randall 0 .STK-MED ONE .ROUTE (DC) Heparin Sodium (Porcine) 0 .STK-MED ONE .ROUTE (DC) Bacitracin 0 .STK-MED ONE .ROUTE (DC) Bupivacaine HCl 0 .STK-MED ONE .ROUTE (DC) Cardioplegic Solution 5,000 ML .STK-MED ONE IV (DC) Heparin Sodium/Sodium Chloride 500 ML .STK-MED ONE IV (DC) Papaverine HCl 0 .STK-MED ONE .ROUTE (DC) Phenylephrine HCl 100 ML .STK-MED ONE IV (DC) Sodium Chloride 20 ML .STK-MED ONE IV (DC) Lidocaine HCl 0 .STK-MED ONE .ROUTE (DC) Lidocaine HCl 0 .STK-MED ONE .ROUTE (DC) Propofol 0 .STK-MED ONE .ROUTE (DC) Midazolam HCl 0 .STK-MED ONE .ROUTE (DC) Fentanyl Citrate 0 .STK-MED ONE .ROUTE (DC) Tranexamic Acid 1,500 MG ONCE ONE IV (DC) Sodium Chloride 50 ML Tranexamic Acid 3,000 MG ONCE ONE IV (DC) Sodium Chloride 250 ML Cefuroxime Sodium 0 .STK-MED ONE .ROUTE (DC) Lidocaine HCl 0 .STK-MED ONE .ROUTE (DC) Post-op: day 1 Status post: Aortocoronary artery bypass times 4 GILBERT-LAD, SVG-Dx, OM and PDA Pacemaker: external Nutrition assessment: The data set between the solid lines has been imported from the dietitian's assessment. Any exceptions have been noted under Provider comments. BMI Calculated: 28.7 Nutrition related diagnosis: Nutrition diagnosis details: Nutrition problem: Nutrition etiology: Nutrition signs and symptoms: Nutrition prescription: Dietitian name: Assessment completed: Provider comments on imported dietitian assessment: Physical Exam General appearance: alert, awake, oriented, no acute distress, pleasant, conversational, mental status normal, no respiratory distress Head/Eyes: atraumatic, normocephalic, PERRLA ENT: moist mucosal membranes Neck: full range of motion, no bruit/NL carotids, no JVD Cardiovascular: CV assessment: rub, regular rate and rhythm, BP pulses = bilaterally Murmur assessment: II/ SHANE, and DEM Respiratory: decreased breath sounds, on oxygen, clear to auscultation, no distress Abdomen: soft, non-tender, no pulsatile mass Musculoskeletal: full range of motion Neuro/DISASTER RECOVERY SPECIALIST: alert, oriented X 3, CN II-XII intact, no motor deficits Wound/incision: Location: Chest Site condition: dressing clean dry Psychiatry: normal affect, normal judgment/insight, normal mood, no hallucinations Results Findings/Data: Laboratory Tests 04/01 04/01 1518 0830 Blood Gas Puncture Site AL AL ABG pH (7.35 - 7.45 mmHg) 7.39 7.45 ABG pCO2 (35.0 - 45.0 mmHg) 37.5 37.2 ABG pO2 (80.0 - 100.0 mmol/L) 169.0 H 89.1 ABG HCO3 (20.0 - 26.0 mmol/L) 22.2 25.1 ABG O2 Saturation (95.0 - 100.0 %) 99.1 97.2 ABG Base Excess (-3.0 - 3.0 mmol/L) -2.2 1.3 Contreras Test (CHECK) NA NA Temperature (37 C) 37.0 37.0 O2 Delivery Device VENT RM AIR Vent Mode A/C Vent Rate (/MIN) 12.0 FiO2 (%) 100 21 Tidal Volume (ml) 500 PEEP (cmH2O) 5.0 Laboratory Tests 04/02 04/02 04/02 04/02 04/02 0612 0514 0350 0319 0119 Chemistry Sodium (137 - 145 MMOL/L) 139 Potassium (3.5 - 5.1 MMOL/L) 4.1 Chloride (98 - 107 MMOL/L) 105 Carbon Dioxide (22 - 30 MMOL/L) 26 BUN (9 - 20 MG/DL) 15 Creatinine (0.66 - 1.25 MG/DL) 0.90 Glomerular Filtr Rate > 60 Glucose (74 - 106 MG/DL) 159 H POC Glucose (60 - 99 MG/DL) 161 H 157 H 157 H 157 H Calcium (8.4 - 10.2 MG/DL) 9.2 Magnesium (1.6 - 2.3 MG/DL) 2.6 H 04/02 04/01 04/01 04/01 04/01 0018 2205 2111 2001 191 Chemistry POC Glucose (60 - 99 MG/DL) 160 H 158 H 177 H 186 H 183 H 04/01 04/01 04/01 04/01 04/01 1819 1719 1624 1512 1500 Chemistry Sodium (137 - 145 MMOL/L) 139 Potassium (3.5 - 5.1 MMOL/L) 4.4 Chloride (98 - 107 MMOL/L) 107 Carbon Dioxide (22 - 30 MMOL/L) 26 BUN (9 - 20 MG/DL) 13 Creatinine (0.66 - 1.25 MG/DL) 0.90 Glomerular Filtr Rate > 60 Glucose (74 - 106 MG/DL) 120 H POC Glucose (60 - 99 MG/DL) 101 H 111 H 142 H 124 H Calcium (8.4 - 10.2 MG/DL) 9.7 Magnesium (1.6 - 2.3 MG/DL) 4.8 H 04/01 04/01 04/01 04/01 1411 1300 1148 0911 Chemistry Sodium (137 - 145 MMOL/L) 139 138 Potassium (3.5 - 5.1 MMOL/L) 4.4 5.5 H 4.7 3.6 Chloride (98 - 107 MMOL/L) 108 H 104 Carbon Dioxide (22 - 30 MMOL/L) 27 26 BUN (9 - 20 MG/DL) 13 13 Creatinine (0.66 - 1.25 MG/DL) 0.90 0.80 Glomerular Filtr Rate > 60 > 60 Glucose (74 - 106 MG/DL) 125 H 134 H 172 H 115 H Calcium (8.4 - 10.2 MG/DL) 10.0 9.2 Laboratory Tests 04/02 04/01 04/01 0350 1500 1411 Coagulation INR 1.2 1.3 1.4 APTT (25.1 - 36.5 SECONDS) 48.5 H 34.7 33.0 PT Patient/Control Mix (9.4 - 12.5 SECONDS) 13.2 H 14.2 H 15.1 H Laboratory Tests 04/02 04/01 04/01 04/01 04/01 0350 1500 1411 1300 1148 Hematology WBC (3.8 - 9.8 K/MM3) 12.4 H 11.2 H 11.4 H RBC (3.95 - 5.67 M/MM3) 3.64 L 3.39 L 3.17 L Hgb (12.4 - 16.7 G/DL) 11.6 L 10.9 L 10.3 L 8.7 L 8.9 L Hct (35.9 - 49.5 %) 33.9 L 31.5 L 29.3 L 25.2 L 26.0 L MCV (81.7 - 96.1 fL) 93 93 92 MCH (27.6 - 33.2 pg) 31.9 32.2 32.5 MCHC (32.9 - 35.5 %) 34.2 34.6 35.2 RDW (12.1 - 15.2 %) 13.2 12.9 12.7 Plt Count (129 - 368 K/MM3) 192 184 166 MPV (7.4 - 10.4 fl) 9.0 8.9 9.1 Neut % (Auto) (43 - 75 %) 85.1 H 77.5 H 74.5 Lymph % (Auto) (14 - 44 %) 4.8 L 9.7 L 12.5 L [place] % (Auto) (4 - 13 %) 9.6 10.9 10.5 Eos % (Auto) (0 - 6 %) 0.0 0.8 1.2 Baso % (Auto) (0 - 2 %) 0.1 0.4 0.5 Neut # (Auto) (2.0 - 7.6 K/mm3) 10.52 H 8.68 H 8.52 H Lymph # (Auto) (1.0 - 3.8 K/mm3) 0.59 L 1.09 1.43 [place] # (Auto) (0.1 - 0.8 K/mm3) 1.19 H 1.22 H 1.20 H Eos # (Auto) (0.0 - 0.2 K/mm3) 0.00 0.09 0.14 Baso # (Auto) (0.0 - 0.2 K/mm3) 0.01 0.04 0.06 Immature Gran % (0.0 - 2.0 %) 0.4 0.7 0.8 Nucleated RBC % (0 - 1.0 %) 0.0 0.0 0.0 Nucleated RBCs # (Man) (0.0 - 0.1 0.00 0.00 0.00 K/mm3) 04/01 0911 Hematology WBC (3.8 - 9.8 K/MM3) 4.1 RBC (3.95 - 5.67 M/MM3) 3.76 L Hgb (12.4 - 16.7 G/DL) 12.1 L Hct (35.9 - 49.5 %) 34.4 L MCV (81.7 - 96.1 fL) 92 MCH (27.6 - 33.2 pg) 32.2 MCHC (32.9 - 35.5 %) 35.2 RDW (12.1 - 15.2 %) 12.7 Plt Count (129 - 368 K/MM3) 196 MPV (7.4 - 10.4 fl) 8.8 Neut % (Auto) (43 - 75 %) 51.5 Lymph % (Auto) (14 - 44 %) 24.9 [place] % (Auto) (4 - 13 %) 17.0 H Eos % (Auto) (0 - 6 %) 5.4 Baso % (Auto) (0 - 2 %) 1.0 Neut # (Auto) (2.0 - 7.6 K/mm3) 2.09 Lymph # (Auto) (1.0 - 3.8 K/mm3) 1.01 [place] # (Auto) (0.1 - 0.8 K/mm3) 0.69 Eos # (Auto) (0.0 - 0.2 K/mm3) 0.22 H Baso # (Auto) (0.0 - 0.2 K/mm3) 0.04 Immature Gran % (0.0 - 2.0 %) 0.2 Nucleated RBC % (0 - 1.0 %) 0.0 Nucleated RBCs # (Man) (0.0 - 0.1 K/mm3) 0.00 Laboratory Tests 04/02 04/01 0350 1500 Chemistry Magnesium (1.6 - 2.3 MG/DL) 2.6 H 4.8 H Laboratory Tests 04/02 04/01 04/01 0350 1500 1411 Coagulation APTT (25.1 - 36.5 SECONDS) 48.5 H 34.7 33.0 Radiology data: Recent Impressions: RADIOLOGY - XR CHEST 1V 04/01 1500 Report Impression - Status: SIGNED Entered: 04/01/2019 1016 IMPRESSION: Post surgical changes of the mediastinum with placement of multiple lines and tubes as above.. Impression By: TopherEBBrittney Coyne MD Results: labs reviewed, vital signs stable, cath. personally reviewed, EKG personally reviewed, rhythm personally rev'd, x-ray personally reviewed, current med profile rev'd EKG Interpretation: normal sinus rhythm Telemetry Interpretation: SR/ST elevation Diagnosis, Assessment Plan Consultants: cardiovascular surgery Code status: full code Plan discussed with: patient, consultants, patient care team, nurse Free Text DxA P Notes Free Text DxA P Notes: IMPRESSION: severe CAD, S/P Aortocoronary artery bypass times 4, GILBERT-LAD, SVG-Dx, OM and PDA HTN HLP MVP/MR AI COD TAA PVC's COPD Post-op ST elevation, likely pericarditis Doing very well, OOB chair RECOMMENDATIONS: B damion added same other meds Serial EKG's Discussed in detail at 0625 [facility] #:[id number] END OF REPORT [facility] 2019-04-02 06:08:00 [id number] [place] [address] PATIENT NAME: LEATHA CORONEL ADMIT DATE: 04/01/19 ACCOUNT NO: [id number] ROOM NO: Z.SI02 AGE: 68 REPORT TYPE: ELECTROCARDIOGRAM SEX: M ADMITTING PHYSICIAN:Albert Lazar MD ATTENDING PHYSICIAN:Albert Lazar MD Order: [id number] Test Reason : CAD Test Date/Time Stamp: [facility] Apr 02 2019 06:08:11 Blood Pressure : / mmHG Vent. Rate : 091 BPM Atrial Rate : 091 BPM P-R Int : 166 ms QRS Dur : 096 ms QT Int : 360 ms P-R-T Axes : 025 -02 011 degrees QTc Int : 442 ms Normal sinus rhythm Inferior infarct , age undetermined ST elevation, consider early repolarization, pericarditis, or injury Abnormal ECG When compared with ECG of 02-APR-2019 05:15, Sinus rhythm has replaced Electronic ventricular pacemaker Confirmed by GEORGE CONNOR ([id number]) on 04/02/2019 7:21:03 AM Referred By: Albert Lazar Confirmed by:GEORGE CONNOR at [facility] PATIENT NAME: LEATHA CORONEL [facility] 2019-04-02 05:15:00 [id number] [place] [id number] PATIENT NAME: LEATHA CORONEL ADMIT DATE: 04/01/19 ACCOUNT NO: [id number] ROOM NO: Z.SI02 AGE: 68 REPORT TYPE: ELECTROCARDIOGRAM SEX: M ADMITTING PHYSICIAN:Albert Lazar MD ATTENDING PHYSICIAN:Albert Lazar MD Order: [id number] Test Reason : CAD post cab Test Date/Time Stamp: ThuApr 02 2019 05:15:25 Blood Pressure : / mmHG Vent. Rate : 094 BPM Atrial Rate : 094 BPM P-R Int : 162 ms QRS Dur : 098 ms QT Int : 366 ms P-R-T Axes : 022 -84 014 degrees QTc Int : 457 ms Electronic ventricular pacemaker No previous ECGs available Confirmed by GEORGE CONNOR ([id number]) on 04/02/2019 7:21:10 AM Referred By: Albert Lazar Confirmed by:GEORGE CONNOR at [facility] PATIENT NAME: LEATHA CORONEL [facility] 2019-04-01 16:05:00 [id number] [address] PATIENT NAME: LEATHA CORONEL ADMIT DATE: 04/01/19 ACCOUNT NO: [id number] ROOM NO: Z.SI02 AGE: 68 REPORT TYPE: ELECTROCARDIOGRAM SEX: M ADMITTING PHYSICIAN:Albert Lazar MD ATTENDING PHYSICIAN:Albert Lazar MD Order: [id number] Test Reason : CAD Test Date/Time Stamp: ThuApr 01 2019 16:05:39 Blood Pressure : / mmHG Vent. Rate : 088 BPM Atrial Rate : 088 BPM P-R Int : 152 ms QRS Dur : 152 ms QT Int : 436 ms P-R-T Axes : 066 -85 082 degrees QTc Int : 527 ms Electronic ventricular pacemaker When compared with ECG of 01-APR-2019 06:30, Electronic ventricular pacemaker has replaced Sinus rhythm Confirmed by MD SHI, DHAVAL AQUINO ([id number]) on 04/01/2019 5:56:21 PM Referred By: Albert Lazar Confirmed by:DHAVAL HAWKINS MD at 1756 PATIENT NAME: LEATHA CORONEL [facility] 2019-04-01 16:05:00 [id number] [place] [address] PATIENT NAME: LEATHA CORONEL ADMIT DATE: 04/01/19 ACCOUNT NO: [id number] ROOM NO: Z.SI02 AGE: 68 REPORT TYPE: ELECTROCARDIOGRAM SEX: M ADMITTING PHYSICIAN:Albert Lazar MD ATTENDING PHYSICIAN:Albert Lazar MD Order: [id number] Test Reason : CAD Test Date/Time Stamp: ThuApr 01 2019 16:05:39 Blood Pressure : / mmHG Vent. Rate : 088 BPM Atrial Rate : 088 BPM P-R Int : 152 ms QRS Dur : 152 ms QT Int : 436 ms P-R-T Axes : 066 -85 082 degrees QTc Int : 527 ms Electronic ventricular pacemaker When compared with ECG of 01-APR-2019 06:30, Electronic ventricular pacemaker has replaced Sinus rhythm Reconfirmed by GEORGE CONNOR ([id number]) on 04/02/2019 6:10:52 AM Referred By: Albert Lazar Confirmed by:GEORGE CONNOR at [id number] PATIENT NAME: LEATHA CORONEL [facility] 2019-04-01 15:21:00 [id number] [address] PATIENT NAME: LEATHA CORONEL ADMIT DATE: 04/01/19 ACCOUNT NO: [id number] ROOM NO: [id number] AGE: 68 REPORT TYPE: OPERATIVE REPORT SEX: M ADMITTING PHYSICIAN:Marie Thibodeaux MD ATTENDING PHYSICIAN:Marie Thibodeaux MD OPERATION DATE: 04/01/2019 CARDIAC SURGERY SERVICE PREOPERATIVE DIAGNOSES: Coronary artery disease, hypertension, and hyperlipidemia. POSTOPERATIVE DIAGNOSES: Coronary artery disease, hypertension, and hyperlipidemia. PROCEDURE: Right CVP insertion, left femoral arterial monitor line insertion, ultrasound-guided access with SonoSite, right subclavian vein, left common femoral artery, aortocoronary bypass x4; GILBERT to LAD, saphenous vein to diagonal, the OM, and the right PDA; endoscopic vein harvesting, right greater saphenous vein. SURGEON: Albert Lazar MD [employer]IC: Song Song PA-C ANESTHESIA: General. COMPLICATIONS: None. DISPOSITION: The patient to surgical ICU in stable condition. DESCRIPTION OF PROCEDURE: On 04/01/2019, the patient was brought to the operating room, placed on the operating table in supine position, prepped and draped in usual fashion. Following introduction of satisfactory general anesthesia, placement of monitoring lines, Wiggins catheter, hips, shoulders, elbows padded in usual fashion. Right subclavian CVP and left femoral arterial monitor was placed using Seldinger percutaneous guidewire technique and ultrasound-guided access with SonoSite, right subclavian vein, left common femoral artery. The patient was prepped and draped. The greater saphenous vein was harvested from the right leg using endoscopic vein harvesting technique, leg was referred simultaneously, a median sternotomy performed, left NAYA was harvested. The patient was heparinized, cannulated, put on full bypass, cooled to 23 centigrade. Topical iced saline placed pericardial well. Aorta cross clamped. Cold potassium cardioplegia solution infused at aortic root, re-infused after each anastomosis. The patient had continuous crystalloid retrograde cardioplegia infused during ischemic period, distal bypass done with 7-0 Prolene suture, end-to-side with saphenous vein to the right PDA, to the OM1 PATIENT NAME: LEATHA CORONEL and to the diagonal end-to-side with 7-0 Prolene suture, left NAYA to the mid LAD was done with 7-0 Prolene suture end-to-side bypass. The patient was placed in Trendelenburg. Aortic cross-clamp was removed. Air was purged through aortic sump cannula. Partial clamps were placed. Aortotomy was made with a 4-0 punch, proximal anastomosis of 5-0 Prolene suture, partial clamp removed. Air was purged with 27-gauge needle. The patient defibrillated, rewarmed, weaned from bypass, stable output rhythm, protamine infused, decannulated. All surgical sites inspected, hemostatic. Mediastinal and pleural chest tube placed. Temporary ventricular skin wire placed. Chest wall closed in standard fashion. The patient was taken to surgical ICU in stable condition. Dictated By: Albert Lazar MD WT: OP:RAMA/JOSE LUIS/GALLITO Conf#: [id number]/DID#: [id number] cc: George Connor MD Authenticated by Albert Lazar MD On 04/04/2019 08:10:09 PM at 2009 PATIENT NAME: LEATHA CORONEL [facility] 2019-04-01 14:58:00 [facility] ([facility] Brief Op Note REPORT#:[id number] REPORT STATUS: Signed DATE:04/01/19 TIME: 8 PATIENT: LEATHA CORONEL UNIT #: [id number] ROOM/BED: [address] : 52 AGE: 68 SEX: M ATTEND: Albert Lazar MD ADM AUTHOR: Albert Lazar MD * ALL edits or amendments must be made on the electronic/computer document * Op/Inv Proc Note - Brief Pre-procedure diagnosis: Atherosclerosis of the [place] coronary arteries Post-procedure diagnosis: same as pre procedure dx Procedures performed: Aortocoronary artery bypass times 4 GILBERT-LAD, SVG-Dx, OM and PDA EVH of right leg SVG Insertion of right subclavian central line and left femoral arterial line uisng sonosite US guidance Primary Surgeon: Albert Lazar Roll Or Tape Edge Machine Operator(s): Song Liu PA-C Anesthesiologist: Dr. Dom Booker CRNA Anesthesia: general anesthesia Findings: See detailed op report Complications: none Estimated blood loss in ml's: 1000 cc Specimens removed/altered: none Drain(s): Wiggins Catheter Placed Tube(s): Chest tubes x 2 Disposition: ICU, stable at 1504 RPT #:[id number] END OF REPORT [facility] 2019-04-01 06:30:00 [id number] [place] [address] PATIENT NAME: LEATHA CORONEL ADMIT DATE: 04/01/19 ACCOUNT NO: [id number] ROOM NO: AGE: 68 REPORT TYPE: ELECTROCARDIOGRAM SEX: M ADMITTING PHYSICIAN: ATTENDING PHYSICIAN:Albert Lazar MD Order: [id number] Test Reason : IS FOR CAB SURGERY THIS MORNING. Test Date/Time Stamp: ThuApr 01 2019 06:30:59 Blood Pressure : / mmHG Vent. Rate : 073 BPM Atrial Rate : 073 BPM P-R Int : 192 ms QRS Dur : 108 ms QT Int : 392 ms P-R-T Axes : 031 015 050 degrees QTc Int : 431 ms Normal sinus rhythm Inferior infarct , age undetermined Possible Anterior infarct (cited on or before 26-MAR-2019) Abnormal ECG When compared with ECG of 26-MAR-2019 05:25, No significant change was found Confirmed by MD SHI, DHAVAL AQUINO ([id number]) on 04/01/2019 10:07:30 AM Referred By: Albert Lazar Confirmed by:DHAVAL HAWKINS MD at 1007 PATIENT NAME: JUAN FRANCISCO CORONELAL RONI [facility] 2019-04-01 06:30:00 [id number] [address] PATIENT NAME: LEATHA CORONEL ADMIT DATE: 04/01/19 ACCOUNT NO: [id number] ROOM NO: Z.SI02 AGE: 68 REPORT TYPE: ELECTROCARDIOGRAM SEX: M ADMITTING PHYSICIAN:Albert Lazar MD ATTENDING PHYSICIAN:Albert Lazar MD Order: [id number] Test Reason : IS FOR CAB SURGERY THIS MORNING. Test Date/Time Stamp: ThuApr 01 2019 06:30:59 Blood Pressure : / mmHG Vent. Rate : 073 BPM Atrial Rate : 073 BPM P-R Int : 192 ms QRS Dur : 108 ms QT Int : 392 ms P-R-T Axes : 031 015 050 degrees QTc Int : 431 ms Normal sinus rhythm Inferior infarct , age undetermined Possible Anterior infarct (cited on or before 26-MAR-2019) Abnormal ECG When compared with ECG of 26-MAR-2019 05:25, No significant change was found Reconfirmed by GEORGE CONNOR ([id number]) on 04/01/2019 3:14:59 PM Referred By: Albert Lazar Confirmed by:GEORGE CONNOR at 1515 PATIENT NAME: LEATHA CORONEL [facility] 2019-03-26 13:07:00 [id number] [address] PATIENT NAME: LEATHA CORONEL ADMIT DATE: 03/26/19 ACCOUNT NO: [id number] ROOM NO: AGE: 68 REPORT TYPE: CONSULTATION REPORT SEX: M ADMITTING PHYSICIAN: ATTENDING PHYSICIAN:George Connor MD CONSULTATION DATE: 03/26/2019 CONSULTING PHYSICIAN: Albert Lazar MD DIAGNOSES: Coronary artery disease, hypertension, and hyperlipidemia. 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 The patient has a very strong positive family history of heart disease on his mother's side. The patient was a smoker and stopped almost 4 years ago. He has hypertension and hyperlipidemia. No diabetes. REVIEW OF SYSTEMS: Otherwise is negative. He has no history of heart attack. He has not had NM or CVA. The patient's arterial Dopplers showed normal ABIs bilaterally. The patient needs back surgery. He had a preop stress test for clearance. He was found to have a positive stress test. Cardiac cath shows severe multivessel disease, ejection fraction about 45%. He does not take aspirin because it makes him bleed. No history of hemophilia, coagulopathy, varicose vein stripping or phlebitis. PHYSICAL EXAMINATION: GENERAL: Demonstrates a well-nourished male, in no apparent distress. NECK: There are no carotid bruits. Carotid pulse present. Radial pulse present. CHEST: Clear. HEART: Regular rate and without murmurs. ABDOMEN: Soft and nontender without masses. EXTREMITIES: Femoral pulse present. Popliteal pedal pulse absent. BREASTS AND RECTAL: Not done. NEUROLOGIC: Physiological. DIAGNOSTIC DATA: Carotid duplex imaging shows 60% lesion on the right, less than 40% on the left. ASSESSMENT: Coronary artery disease. RECOMMENDATIONS: The patient to have coronary bypass surgery, we will schedule for this week. The procedure, the alternatives, possible risks and complications including the inherent and other risks of surgery are explained to the patient and family, understand and accept, want to proceed, had a chance to ask question and want to proceed. Dictated By: Albert Lazar MD PATIENT NAME: LEATHA CORONEL WT: CON:RAMA/JOSE LUIS/GALLITO Conf#: [id number]/DID#: [id number] Authenticated by Albert Lazar MD On 03/27/2019 10:40:18 PM at 2240 PATIENT NAME: LEATHA CORONEL [facility] 2019-03-26 10:38:00 [id number] [place] [address] PATIENT NAME: LEATHA CORONEL ADMIT DATE: 03/26/19 ACCOUNT NO: [id number] ROOM NO: AGE: 68 REPORT TYPE: ECHOCARDIOGRAM SEX: M ADMITTING PHYSICIAN: ATTENDING PHYSICIAN:George Connor MD *[facility]* [address] [place] [address] Transthoracic Echocardiogram Patient: Leatha Coronel Study Date: 03/26/2019 BP: 110 / 67 Location: [facility] URN: [id number] : 1950 Age: 68 Height: 72 in / 182.9 cm Gender: M Weight: 215 lb / 97.7 kg BMI/BSA: 29.2 kg/m 2 / 2.25 m 2 *Ordering Physician: * George Connor MD *Interpreting Physician: * George Connor MD *Lineworker: * Chidi Sutton, RCS, RVS Indications: CAD [place] Vessel. Study data: Transthoracic echocardiogram. Procedure: Transthoracic echocardiography was performed. Images were obtained using a [email or web address] cardiac ultrasound machine. Image quality was adequate. Complete 2D, complete spectral Doppler, and color Doppler. Location: Catheterization laboratory. Patient status: Outpatient. Patient room number: Spanner Operator Holding Room 1. Study status: Routine. Findings Left ventricle: The cavity size is normal. There is mild concentric left ventricular hypertrophy. Systolic function is mildly reduced. The estimated ejection fraction is 45-49%. Regional wall motion abnormalities: Moderate hypokinesis of the apical myocardium; mild PATIENT NAME: LEATHA CORONEL hypokinesis of the mid anteroseptal, apical septal, and apical lateral myocardium. The tissue Doppler parameters are abnormal. Doppler parameters are consistent with abnormal left ventricular relaxation (grade 1 diastolic dysfunction). Right ventricle: The cavity size is normal. Systolic function is normal. Systolic pressure is within the normal range. Ventricular septum: The ventricular septum is normal. Left atrium: The atrium is normal in size. Right atrium: The atrium is normal in size. Atrial septum: No defect or patent foramen ovale is identified. Aortic valve: The annulus is mildly calcified. The valve is trileaflet. The leaflets are mildly thickened. There is mild to moderate regurgitation. Mitral valve: The leaflets are mildly thickened. There is mild regurgitation, directed eccentrically. Tricuspid valve: The leaflets are normal thickness. There is mild regurgitation. Pulmonic valve: Not well visualized. There is no significant regurgitation. Pericardium: There is no pericardial effusion. No evidence of pleural fluid accumulation. Systemic veins: Inferior vena cava: The vessel is normal in size. Measurements Left ventricle Value Ref Aortic valve Value Ref GLS, 2D -10 % --------- Leaflet sep, MM 2.22 cm ----- SEKOU, LAX 5.0 cm 4.2 - 5.8 Mean v, S 0.91 m/sec ----- ESD, LAX 3.6 cm 2.5 - 4.0 VTI, S 25.9 cm ----- ESD/bsa, LAX 1.6 cm/m 2 1.3 - 2.1 Mean grad, S 4.0 mm Hg ----- FS, LAX 22 % 25 - 43 Peak grad, S 7.9 mm Hg ----- PW, ED 1.0 cm 0.6 - 1.0 LVOT/AV, VTI ratio 0.72 ----- PW, ES 0.9 cm --------- SONIA, VTI 2.51 cm 2 ----- IVS/PW, ED 1.25 --------- SONIA, Vmax 2.84 cm 2 ----- EF 44 % 52 - 72 AR peak v 4.06 m/sec ----- E/e', lat osorio, 6 --------- AR decel time 3234 ms ----- TDI AR PHT 938 ms ----- E/e', med osorio, 8 --------- AR peak grad 66 mm Hg ----- TDI PATIENT NAME: LEATHA CORONEL E/e', avg, TDI 7 <=14 Mitral valve Value Ref Peak E 0.69 m/sec ----- LVOT Value Ref Peak A 0.82 m/sec ----- Diam, S 2.10 cm --------- Mean v, D 0.54 m/sec ----- Area 3.5 cm 2 --------- VTI leaflet coapt 25.7 cm ----- Peak gladis, S 1.15 m/sec --------- Decel time 259 ms ----- Mean gladis, S 0.76 m/sec --------- Mean grad, D 1.4 mm Hg ----- VTI, S 18.8 cm --------- Peak grad, D 3.0 mm Hg ----- Peak grad, S 5 mm Hg --------- Peak E/A ratio 0.84 ----- Mean grad, S 3 mm Hg --------- MR peak v 4.94 m/sec ----- SV 65 ml --------- Qs 4.72 L/min --------- Pulmonic valve Value Ref Qs/bsa 2.1 L/(min-m 2) --------- GA v, ED 0.73 m/sec ----- SV/bsa 29 ml/m 2 --------- Tricuspid valve Value Ref Ventricular septum Value Ref TR peak v 2.13 m/sec <=2.8 IVS, ED 1.3 cm 0.6 - 1.0 Peak RV-RA grad, S 18 mm Hg ----- IVS, ES 1.5 cm --------- Aortic root Value Ref Right ventricle Value Ref Root diam, ED MM 3.99 cm ----- SEKOU, LAX 2.8 cm --------- Pressure, S 28 mm Hg --------- Pulmonary artery Value Ref Pressure, S 23.7 mm Hg ----- RVOT Value Ref Peak v, S 0.82 m/sec --------- Systemic veins Value Ref Peak grad, S 3 mm Hg --------- Estimated CVP 10 mm Hg ----- Left atrium Value Ref AP dim, ES 3.55 cm 3.00 - 4.00 Conclusions PATIENT NAME: LEATHA CORONEL Summary: 1. Left ventricle: The cavity size is normal. There is mild concentric left ventricular hypertrophy. Systolic function is mildly reduced. The estimated ejection fraction is 45-49%. Doppler parameters are consistent with abnormal left ventricular relaxation (grade 1 diastolic dysfunction). 2. Regional wall motion abnormality: Moderate hypokinesis of the apical myocardium; mild hypokinesis of the mid anteroseptal, apical septal, and apical lateral myocardium. 3. Atrial septum: No defect or patent foramen ovale is identified. 4. Aortic valve: The annulus is mildly calcified. The valve is trileaflet. The leaflets are mildly thickened. There is mild to moderate regurgitation. 5. Mitral valve: There is mild regurgitation, directed eccentrically. Prepared and electronically signed by George Connor MD 03/26/2019 10:38 at 1038 PATIENT NAME: LEATHA CORONEL [facility] 2019-03-26 10:37:00 [id number] [facility] [id number] [place] [address] PATIENT NAME: LEATHA CORONEL ADMIT DATE: 03/26/19 ACCOUNT NO: [id number] ROOM NO: AGE: 68 REPORT TYPE: eCAROTID ULTRASOUND SEX: M ADMITTING PHYSICIAN: ATTENDING PHYSICIAN:George Connor MD *[facility]* [address] [place] [address] Carotid Duplex Study Patient: Leatha Coronel Study Date: 03/26/2019 BP: 133 / 74 Location: [facility] URN: [id number] : 1950 Age: 68 Height: 72 in / 182.9 cm Gender: M Weight: 215 lb / 97.7 kg BMI/BSA: 29.2 kg/m 2 / 2.25 m 2 *Ordering Physician: * George Connor MD *Interpreting Physician: * George Connor MD *Lineworker: * Chidi Sutton BS, RCS, RVS Indications: CAD. Pre-op evaluation. Study data: Carotid duplex study. Bilateral evaluation with grayscale 2D imaging, color Doppler imaging, and spectral Doppler analysis. Location: Catheterization laboratory. Patient status: Outpatient. Patient room number: Spanner Operator Holding Room 1. Procedure: A vascular evaluation was performed. Images were obtained using a [email or web address] vascular ultrasound machine. Image quality was adequate. Study status: Routine. Findings Carotid/vertebral arteries: Right common carotid: The vessel is normal; it has no evidence of disease. Right internal carotid: Proximal vessel lesion: There is a 40-59%stenosis. PATIENT NAME: LEATHA CORONEL Right external carotid: The vessel is normal; it has no evidence of disease. Right vertebral: The arterial flow direction is antegrade. Left vertebral: The arterial flow direction is antegrade. Left common carotid: The vessel is normal; it has no evidence of disease. Left internal carotid: Proximal vessel lesion: There is a 20-39%stenosis. Left external carotid: The vessel is normal; it has no evidence of disease. Arterial flow: Location PSV* EDV* PSV Stenosis Location PSV* EDV* PSV Stenosis ratio ratio R CCA, prox 51 10 ----- -------- L CCA, 53 8 ----- -------- prox R CCA, 45 7 ----- -------- L CCA, 55 13 ----- -------- distal distal R ICA, prox 115 36 2.26 40-59% L ICA, 60 20 1.1 20-39% prox R ICA, mid 113 36 2.21 -------- L ICA, 50 17 0.92 -------- mid R ICA, 58 25 1.14 -------- L ICA, 44 15 0.8 -------- distal distal R ECA 82 9 ----- -------- L ECA 67 9 ----- -------- R vertebral 29 7 ----- -------- L 29 7 ----- -------- vertebra l *Velocities are expressed in cm/sec, Diameters are expressed in cm Conclusions 1. 40-59% involving the right carotid artery bifurcation and right internal carotid artery. 2. 20-39% involving the left carotid artery bifurcation and left internal carotid artery. 3. Antegrade flow noted in the right vertebral artery and left vertebral artery. Prepared and electronically signed by George Connor MD 03/26/2019 10:36 at 1037 PATIENT NAME: LEATHA CORONEL [facility] 2019-03-26 06:58:00 [id number] [place] [id number] PATIENT NAME: LEATHA CORONEL ADMIT DATE: 03/26/19 ACCOUNT NO: [id number] ROOM NO: AGE: 68 REPORT TYPE: CARDIAC CATHETERIZATION REPORT SEX: M ADMITTING PHYSICIAN: ATTENDING PHYSICIAN:George Connor MD PROCEDURE DATE: 03/26/2019 CARDIOLOGY PROCEDURE METEOROLOGY FACULTY MEMBER: George Connor MD TITLE OF THE PROCEDURE: Left heart catheterization and selective GILBERT angiogram. INDICATION FOR THE PROCEDURE: Dyspnea, coronary artery disease, cardiomyopathy, and preoperative clearance. ESTIMATED BLOOD LOSS: Minimal. COMPLICATIONS: None. CONTRAST: 75 mL. ANESTHESIA: Conscious sedation with Versed and fentanyl, 1% lidocaine for local anesthesia. FINAL DIAGNOSES: Heavily calcified arteries, three-vessel coronary artery disease, occluded right coronary artery with kynu-cd-tqdlv collaterals, dilated ischemic cardiomyopathy, ejection fraction 45%. Good left internal mammary artery for bypass, the recommendation is bypass. PROCEDURE IN DETAIL: After informed consent, the patient was brought to the cardiac catheterization lab in a stable fasting nonsedated state. He was prepped and draped in the usual sterile fashion. After conscious sedation, 1% lidocaine was administered to the right common femoral artery area for local anesthesia. A 6-Lao sheath was placed in the right common femoral artery using standard techniques and fluoroscopy. After heparinization, left coronary angiogram showed calcified arteries. The LAD had 50% proximal and 90% mid. There is a small ramus intermedius that is occluded. There is a 75% in the obtuse marginal, which is a large vessel. Right coronary artery is occluded in the mid vessels. There is good vuwk-wv-wbhzg collaterals. Selective GILBERT angiogram showed the GILBERT to be of good caliber and is suitable for bypass. Left ventricular angiogram showed ejection fraction around 45% with severe inferior basal hypokinesis. The left ventricular end-diastolic pressure was 18, and there was no significant aortic valve gradient. The right groin was sealed using Angio-Seal. There were no complications. The patient tolerated the procedure well and was transferred back to the holding area for observation and PATIENT NAME: JUAN FRANCISCO CORONELMINDY TAMAYO surgical consultation for bypass. Dictated By: George Connor MD WT: CATH:MARLEE/DONNA/GALLITO Conf#: [id number]/DID#: [id number] Authenticated by George Connor MD On 03/26/2019 11:30:16 AM at 1130 PATIENT NAME: BERNALEATHA GRANT [facility] 2019-03-26 05:25:00 [phone] [address] PATIENT NAME: BERNALEATHA TAMAYO ADMIT DATE: 03/26/19 ACCOUNT NO: [id number] ROOM NO: AGE: 68 REPORT TYPE: ELECTROCARDIOGRAM SEX: M ADMITTING PHYSICIAN: ATTENDING PHYSICIAN:George Connor MD Order: [id number] Test Reason : PREOP Test Date/Time Stamp: ThuMar 26 2019 05:25:57 Blood Pressure : / mmHG Vent. Rate : 074 BPM Atrial Rate : 074 BPM P-R Int : 210 ms QRS Dur : 100 ms QT Int : 388 ms P-R-T Axes : 052 060 061 degrees QTc Int : 430 ms Sinus rhythm with 1st degree AV block Anterior infarct , age undetermined Abnormal ECG No previous ECGs available Confirmed by GEORGE CONNOR ([id number]) on 03/26/2019 6:14:43 AM Referred By: George Connor Confirmed by:GEORGE CONNOR at 0614 PATIENT NAME: LEATHA CORONEL [facility] 2019-03-25 07:17:00 [phone] [place] [address] PATIENT NAME: LEATHA CORONEL ADMIT DATE: ACCOUNT NO: [id number] ROOM NO: AGE: 68 REPORT TYPE: HISTORY AND PHYSICAL SEX: M ADMITTING PHYSICIAN: ATTENDING PHYSICIAN:George Connor MD PATIENT NAME: LEATHA CORONEL ADMIT DATE:03/26/2019 ADMISSION DATE: 03/26/2019 DATE OF ADMISSION AND PROCEDURE: 03/26/2019 METEOROLOGY FACULTY MEMBER: George Connor MD REASON FOR ADMISSION: Dyspnea, coronary artery disease, cardiomyopathy, ischemia for cardiac catheterization to assess for possible revascularization. HISTORY OF PRESENT ILLNESS: Leatha is a 68-year-old patient of mine who I have been following for many years. He was evaluated back in 2011 and was found to have dilated ischemic cardiomyopathy, ejection fraction of 39% with scarring. He decided to be only on medical therapy and refused cardiac catheterization in the past. He comes back recently needing clearance for surgery. He underwent another nuclear stress test that showed still cardiomyopathy, ejection fraction 42%, but also with large scarring and no significant reversible ischemia, but high likelihood of significant coronary artery disease given that the patient has never had a previous cardiac catheterization and the significance of his scarring and the need for clearance for noncardiac surgery. He is here for cardiac catheterization to assess his coronaries and then decide what is needed. His last carotid Doppler showed 51% to 69% on the right, less than 35% on the left. His last echocardiogram showed mildly dilated aorta, ascending and roots, and tmfr-zi-lzhfxnoh mitral regurgitation, mild aortic insufficiency, ejection fraction around 55%. PAST MEDICAL HISTORY: Remarkable for the above in addition to hypertension, hyperlipidemia, mitral valve prolapse, PVCs, carotid disease and lumbar disk disease, and allergies. PAST SURGICAL HISTORY: Remarkable for tonsillectomy, left eye lens implant and back steroid injections. The patient is in need at this time of lumbar back surgery. ALLERGIES: NO KNOWN DRUG ALLERGIES. MEDICATIONS: He takes fish oil, magnesium, meloxicam, carvedilol 25 b.i.d., pravastatin 40 mg 1-1/2 daily, valsartan 320 mg daily, allopurinol 300 mg daily, amlodipine 5 mg daily, furosemide 20 mg daily. SOCIAL HISTORY: There is no history of smoking, alcohol, or street drug use. He drinks alcohol socially. PATIENT NAME: LEATHA CORONEL FAMILY HISTORY: Positive for atherosclerotic cardiovascular disease on mom's side. His father at 94. REVIEW OF SYSTEMS: Remarkable for insomnia, allergies, dry mouth, generalized weakness, easy bruisability, history of gout, arthritis, lumbar disk disease. No acute GI or symptoms. No TIAs or strokes. The rest of the review of system is enclosed. PHYSICAL EXAMINATION: GENERAL: Reveals a pleasant middle-aged male, in no acute distress. VITAL SIGNS: Blood pressure 122/64, pulse 65 and regular, respiratory rate 18 and unlabored, and temperature afebrile. HEENT: Head, atraumatic and normocephalic. Eyes and ENT examination within normal for age. NECK: Supple. No jugular venous distention, bruits, or lymphadenopathy. Normal upstroke. LUNGS: Clear and resonant. HEART: Regular rate and rhythm with III/ systolic ejection murmur at the left lower sternal border and II/ diastolic murmur at the aortic area. No gallops. The heart appears to be enlarged. ABDOMEN: Soft. No tenderness, no organomegaly, no masses or bruits. EXTREMITIES: 2+ distal pulses. No edema, cyanosis, or clubbing. NEUROLOGIC: Alert and oriented x3. Examination appears to be nonfocal. LABORATORY DATA: Pending. Noninvasive cardiovascular workup enclosed. IMPRESSION: This is a 68-year-old patient with known coronary artery disease, but never had a cardiac catheterization, has a large perfusion defect on a nuclear stress test with depressed ejection fraction, symptoms of dyspnea. He is in need of a lumbar back surgery. He is here for cardiac catheterization to assess his coronaries and then decide on revascularization for continuation of medical therapy. The recommendation is to proceed with left heart catheterization and possible revascularization. Risks and benefits of the planned procedures were discussed in detail with the patient, and he is willing to proceed. Rest as per orders. Dictated By: George Connor MD WT: HP:RAMA/DONNA/GALLITO Conf#: [id number]/DID#: [id number] Authenticated and Edited by George Connor MD On 03/25/19 10:28:07 AM at 1031 PATIENT NAME: LEATHA CORONEL [facility]
--- NOTE | 2023-12-03 14:51 | RAD REPORT ---
EXAMINATION: US RIGHT LOWER EXTREMITY VENOUS DOPPLER CLINICAL INDICATION: [facility] MAIN right leg Pain;Swelling Bed Name: IW7 Y TECHNIQUE: Complete bilateral duplex sonography of the RIGHT lower extremity veins was performed. The examination included compression for vein patency, color Doppler imaging and flow augmentation in response to distal compression of the distal external iliac, common femoral, femoral, popliteal, tibi al, and great and small saphenous veins. COMPARISON: No prior exam. FINDINGS: Duplex sonography testing of the veins of the RIGHT lower extremity was performed. Color flow imaging shows all veins to be compressible with bcsq-bm-[id number] color filling. Pulsatile and phasic flow is present within all lower extremity deep and superficial veins examined. IMPRESSION: No evidence of deep venous thrombosis.
--- NOTE | 2023-12-03 17:46 | EDPHYS ---
Physician Documentation [facility] Name: Benigno Farncisco Age: 73 yrs Sex: Male : 1950 Arrival Date: 12/03/2023 Time: 13:13 Bed External Waiting Private MD: PATRIZIA Physician Chidi Chapin HPI: 12/02 13:45 This 73 yrs old Male presents to ER via Ambulatory with complaints of Leg Infection. cp 13:45 The patient presents with pain, swelling, tenderness, erythema. cp 13:45 The complaints affect the medial aspect of right calf, right ankle, right mcdonald and cp anterior aspect of right ankle. Context: resulted from an unknown cause, the patient can fully bear weight, the patient is able to ambulate, with mild difficulty. Onset: The symptoms/episode began/occurred yesterday, and became worse today. Associated signs and symptoms: Pertinent positives: fever, warmth, chills. Historical: - Allergies: 13:40 No Known Allergies; db - PMHx: 13:40 Hypertensive disorder; Congestive heart failure; db - PSHx: 13:38 QUADRUPLE BYPASS; db - Immunization history:: Adult Immunizations unknown. - Infectious Disease History:: Denies. - Social history:: Smoking status: Patient denies any tobacco usage or history of. ROS: 13:47 Constitutional: Positive for body aches, chills, fever, cp 13:47 Respiratory: Negative for cough, shortness of breath, wheezing, 13:47 MS/extremity: Positive for erythema, pain, swelling, tenderness, of the anterior aspect of right ankle and right mcdonald and right ankle and medial aspect of right calf, Negative for injury or acute deformity, Exam: 13:50 Constitutional: The patient appears in no acute distress, alert, awake, cp non-diaphoretic, non-toxic, well developed, well nourished, 13:50 Head/Face: Normocephalic, atraumatic. cp 13:50 Eyes: Periorbital structures: appear normal, Conjunctiva: normal, no exudate, no injection, Sclera: no appreciated abnormality, Lids and lashes: appear normal, bilaterally, 13:50 ENT: External ear(s): are unremarkable, Nose: is normal, Mouth: Lips: moist, Oral mucosa: moist, Posterior pharynx: Airway: no evidence of obstruction, patent, 13:50 Chest/axilla: Inspection: normal, 13:50 Cardiovascular: Rate: normal, 13:50 Respiratory: the patient does not display signs of respiratory distress, Respirations: normal, no use of accessory muscles, no retractions, labored breathing, is not present, Breath sounds: are clear throughout, no decreased breath sounds, no stridor, no wheezing, 13:50 Abdomen/GI: Inspection: abdomen appears normal, 13:50 Musculoskeletal/extremity: Extremities: noted in the anterior aspect of right ankle and right mcdonald and right ankle and medial aspect of right calf: erythema, swelling, tenderness, skin intact with no open wounds noted, Vital Signs: 13:37 BP 121 / 59; Pulse 73; Resp 18; Temp 99(O); Pulse Ox 99% ; Weight 92.99 kg; Height 5 db ft. 11 in. ; 13:37 Body Mass Index 28.59 (92.99 kg, 180.34 cm) db MDM: 13:37 Medical Screening Exam initiated cp 14:00 Differential diagnosis: cellulitis, sepsis, DVT. cp 16:15 Data reviewed: vital signs, nurses notes, radiologic studies, ultrasound. 12/02 13:44 Order name: US Extremity Venous Unilateral Ltd; Complete Time: 16:12 12/02 16:12 Interpretation: Report reviewed. 12/02 13:44 Order name: Accucheck 12/02 13:44 Order name: Cardiac monitoring 12/02 13:44 Order name: EKG - Nurse/Tech 12/02 13:44 Order name: IV Saline Lock - Large Bore 12/02 13:44 Order name: Labs collected and sent 12/02 13:44 Order name: O2 Per Protocol 12/02 13:44 Order name: O2 Sat Monitoring 12/02 13:44 Order name: Vital Signs cp Administered Medications: No medications were administered Disposition: 12/03 15:40 Chart complete. cp Disposition Summary: 12/03/23 17:45 Eloped Notes: Disposition: after being seen by provider cp Problem: new cp Symptoms: are unchanged cp Reason: unknown cp Condition: Stable cp Diagnosis - Pain in right lower leg cp Followup: cp - With: Private Physician - When: As needed - Reason: Worsening of condition Signatures: Dispatcher [employer] EDMS Chidi Salcedo PA PA cp Benton, Danielle, RN RN db Corrections: (The following items were deleted from the chart) 12/02 13: 13:44 BLOOD CULTURE*+BA.LAB.BRZ ordered. EDMS EDMS : 13:44 CBC+H.LAB.BRZ ordered. EDMS EDMS : 13:44 COMPREHENSIVE METABOLIC PANEL+C.LAB.BRZ ordered. EDMS EDMS : 13:44 LACTATE+C.LAB.BRZ ordered. EDMS EDMS : 13:44 PROTIME (+INR)+COAG.LAB.BRZ ordered. EDMS EDMS : 13:44 PTT, ACTIVATED+COAG.LAB.BRZ ordered. EDMS EDMS :44 13:44 Urinalysis+U.LAB.BRZ ordered. EDMS EDMS :44 13:44 Extremity Venous Uni Ltd+US.RAD.BRZ ordered. EDMS EDMS
--- NOTE | 2023-12-03 17:46 | ER ---
Nurse's Notes [facility] Name: Benigno Francisco Age: 73 yrs Sex: Male : 1950 Arrival Date: 12/03/2023 Time: 13:13 Bed External Waiting Private MD: Diagnosis: Pain in right lower leg Presentation: 12/02 13:37 Chief complaint: Patient states: RIGHT LOWER LEG PAIN X 2 DAYS. NOTED REDNESS ON CALF. db STATES YESTERDAY FELT LIKE HAD A FEVER. STATES WAS WORKING IN [place] RECENTLY. Coronavirus screen: Client denies travel out of the [place] in the last 14 days. At this time, the client does not indicate any symptoms associated with coronavirus-19. Ebola Screen: Patient negative for fever greater than or equal to 101.5 degrees Fahrenheit, and additional compatible Ebola Virus Disease symptoms Patient denies exposure to infectious person. Patient denies travel to an Ebola-affected area in the 21 days before illness onset. No symptoms or risks identified at this time. Initial Sepsis Screen: Does the patient meet any 2 criteria? No. Patient's initial sepsis screen is negative. Does the patient have a suspected source of infection? No. Patient's initial sepsis screen is negative. Risk Assessment: Do you want to hurt yourself or someone else? Patient reports no desire to harm self or others. Onset of symptoms was December 02, 2023. 13:37 Acuity: HARSHAD 3 db 13:37 Method Of Arrival: Ambulatory db Triage Assessment: 13:37 General: Appears in no apparent distress. comfortable, Behavior is calm, cooperative. db Pain: Complains of pain in right leg. Respiratory: Airway is patent Respiratory effort is even, unlabored, Respiratory pattern is regular, symmetrical. Derm: Historical: - Allergies: 13:40 No Known Allergies; db - PMHx: 13:40 Hypertensive disorder; Congestive heart failure; db - PSHx: 13:38 QUADRUPLE BYPASS; db - Immunization history:: Adult Immunizations unknown. - Infectious Disease History:: Denies. - Social history:: Smoking status: Patient denies any tobacco usage or history of. Assessment: 17:43 Reassessment: called pt to exam room. Unable to locate patient. Registration staff, roberto Galarza states that pt eloped. Vital Signs: 13:37 BP 121 / 59; Pulse 73; Resp 18; Temp 99(O); Pulse Ox 99% ; Weight 92.99 kg; Height 5 db ft. 11 in. ; 13:37 Body Mass Index 28.59 (92.99 kg, 180.34 cm) db ED Course: 13:15 Patient arrived in ED. mr 13:15 Chidi Salcedo PA is PHCP. cp 13:15 Chidi Chapin MD is Attending Physician. cp 13:38 Triage completed. db 13:41 Arm band placed on left wrist. Patient placed in waiting room. db 14:00 US Extremity Venous Unilateral Ltd In Process Unspecified. EDMS 17:37 Aurora Quesada, RN is Primary Nurse. tm6 Administered Medications: No medications were administered Outcome: 18:58 Eloped from waiting room, after seeing physician kb3 18:58 Condition: stable 18:58 Patient left the ED. kb3 Signatures: Dispatcher [employer] EDMS Michell Palacios, Reg Reg mr Ne Harper, RN RN ss Chidi Salcedo PA PA cp Bradberry, Kelly, RN RN kb3 Khushbu Coleman, RN RN db Aurora Quesada, RN RN tm6 Corrections: (The following items were deleted from the chart) 13:38 13:37 Onset of symptoms was December 03, 2023 db db 13:40 13:37 Chief complaint: Patient states: RIGHT LOWER LEG PAIN X 2 DAYS. NOTED REDNESS ON db CALF. STATES YESTERDAY FELT LIKE HAD A FEVER db 13:40 13:37 Method Of Arrival: Ambulatory db db 13:41 13:37 BP 121 / 59; Pulse 73bpm; Resp 18bpm; Pulse Ox 99%; Temp 99F Oral; db db
[2023-12-03 23:20] VITALS: BP 121/59; TEMP 99; O2SAT 99
== END 2023-12-03 18:58 | disposition left against medical advice (07) ==
LOC: ER 13:13
DX: M79.661 Pain in right lower leg (principal)
CPT/HCPCS: 93971; 99281